=== PATIENT | female | born 1965 | race Caucasian/White ===

== ENCOUNTER 2019-12-22 13:41 | Emergency (ER) | payer BC, SELFPAY ==
[2019-12-22 13:51] VITALS: BP 249/123; PULSE 119; RESP 18; TEMP 36.2; O2SAT 97; BMI 39.1
--- NOTE | 2019-12-22 14:09 | CT_ITS ---
WS: [id number] CT HEAD NONCONTRAST HISTORY: Hypertension. TECHNIQUE: Contiguous axial imaging performed through the brain in 2.5 mm imaging. Bone and soft tiss ue windows. Sagittal and coronal reformats reviewed. All CT scans at [facility] use at ast one of these dose optimization techniques: automated exposure control; mA and/or kV adjustment pe r patient size (includes targeted exams where dose is matched to clinical indication); or iterative r econstruction. DLP: 824.54 mGy.cm COMPARISON: None available. No acute intracranial hemorrhage, midline shift or mass effect. No atrophy or prior infarcts or herniation. Ventricles: Normal size with no hydrocephalus. Paranasal sinuses: As visualized are clear. Mastoid air cells: Well pneumatized. Calvarium and scalp: Skull is intact with no soft tissue edema or swelling. CT/CT head wo con* [id number] IMPRESSION: Negative head CT.
--- NOTE | 2019-12-22 14:21 | ED_ITS ---
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 Associated symptoms: Deny chest pain, dyspnea or headache(s) Review of Systems General: Reports: 10 or more systems reviewed and unremarkable except in HPI and below Card: Denies: chest pain Resp: Denies: shortness of breath Neuro: Denies: headache, numbness in extremities, weakness in extremities or difficulty walking Psych: Reports: anxiety PFSH ED PFSH: Social History Smoking and tobacco status: never smoked Physical Exam Const: COMMON NORMALS: no apparent distress, oriented x3, no limitations and alert GENERAL APPEARANCE: cooperative and comfortable ORIENTATION/CONSCIOUSNESS: Yes awake, Yes oriented to person, Yes oriented to place and Yes oriented to time HENMT: COMMON NORMALS: normocephalic, head/scalp atraumatic, external ears normal, EAC's normal, TM's normal bilaterally and external nose normal HEAD & SCALP: normal to inspection, normocephalic and atraumatic FACE & SINUS: normal facial exam, sinuses nontender and face symmetric NOSE: external nose normal, nares normal and no nasal discharge EXTERNAL EAR: Yes external ears normal EXTERNAL AUDITORY CANAL: EAC's normal TYMPANIC MEMBRANE: TM's normal bilaterally MOUTH: oral and palatal mucosa normal, lip normal and tongue normal THROAT: posterior oropharynx normal, tonsils normal and uvula midline Eye: COMMON NORMALS: PERRL, EOMs intact bilaterally and conjunctivae normal GENERAL EYE: normal appearance of both eyes and normal light reflex EYELID: eyelids normal CONJUNCTIVA: Yes conjunctivae normal PUPIL: Yes PERRL E OM: Yes EOM abnormal DIRECT OPHTHALMOSCOPY: Yes normal light reflex Neck/C-Spine: COMMON NORMALS: full ROM, no lymphadenopathy, supple, no meningeal signs, no JVD and thyroid normal GENERAL: Yes normal visual inspection THYROID: thyroid normal CERVICAL SPINE: Yes cervical ROM normal and Yes normal cervical lordosis Lymph: LYMPHATIC: no lymphadenopathy noted Chest: COMMONS NORMALS: inspection of chest normal and palpation of chest normal Resp: COMMON NORMALS: normal respiratory effort, no retractions and clear to auscultation bilaterally AUSCULTATION: clear to auscultation bilaterally Cardio: COMMON NORMALS: no JVD, regular rate, regular rhythm, S1 normal heart sound, S2 normal heart sound, no gallops, no clicks, no murmurs, no rub and peripheral pulses 2+ throughout RATE: regular rate RHYTHM: regular rhythm HEART SOUNDS: S1 normal and S2 normal PERIPHERAL PULSES: pulses 2+ throughout GI: COMMON NORMALS: normal to inspection, nondistended, normoactive bowel sounds, soft to palpation, non-tender and no masses PALPATION: Yes soft : COMMON NORMALS: Yes no CVA tenderness and Yes external appearance normal BLADDER/KIDNEY EXAM: Yes no CVA tenderness Back/Pelvis: COMMON NORMALS: no CVA tenderness, thoracic and lumbar spine normal to inspection, no thoracic nor lumbar tenderness and thoraco-lumbar ROM normal Extremity: COMMON NORMALS: normal to inspection, full ROM, normal capillary refill, no joint enlargement, no clubbing, cyanosis or edema, no calf tenderness and no pedal edema GENERAL: Yes normal exam except as noted Neuro: COMMON NORMALS: oriented x3, moves all extremities, no focal motor deficits, no sensory deficits noted and gait normal SENSORIUM/ORIENTATION: Yes alert, Yes oriented to person, Yes oriented to place and Yes oriented to time MENINGEAL SIGNS: Yes no meningeal signs Psych: COMMON NORMALS: mental status grossly normal, thought process normal, cooperative, affect normal, speech normal and activity/motor behavior normal SPEECH: Yes normal speech THOUGHT PROCESS: normal thought process Skin: COMMON NORMALS: no rashes or lesions noted, no wounds and skin turgor normal GENERAL SKIN EXAM: no rashes or lesions noted and turgor normal Course ED course: Pt BP elevated; no neurological deficits noted upon examination however pt has not had a thorough work up as a patient in a doctor's office ever and does not take any medications. She does have an appt set up to follow up with her PCP later this week. We will acutely control her BP before releasing her but also rule out infection and do some basic labs. Reevaluation(s): Reevaluation #1: Pt remains to assymptomatic but BP is still elevated. We will proceed with DC. Time: 16:52 Vital Signs: Vital signs: Vital Signs Temperature 97.1 F L 04/28/20 13:51 Pulse Rate 97 12/22/19 16:00 Respiratory Rate 16 12/22/19 16:00 Blood Pressure 170/105 12/22/19 16:00 Pulse Oximetry 98 12/22/19 16:00 [facility] - General Adult Lab Data: Labs: Lab Results 12/22/19 12/22/19 12/22/19 Range/Units 14:22 14:22 14:25 WBC 10.4 H (4.0-10.0) 10^3/ uL RBC 5.04 (4.1-5.3) 10^6/u L Hgb 14.8 (11.5-15.3) g/dL Hct 45.9 (37.0-47.0) % MCV 91.1 (81-99) fL MCH 29.4 (28.0-34.0) pg MCHC 32.2 (30.0-36.0) g/dL RDW 12.4 (12.1-15.1) % Plt Count 250 (130-400) 10^3/c mm MPV 12.6 H (7.4-10.4) fL Neut % (Auto) 70.3 % Lymph % (Auto) 20.1 % [place] % (Auto) 7.0 % Eos % (Auto) 1.5 % Baso % (Auto) 0.7 % Neut # (Auto) 7.3 (1.8-7.7) 10^3/u L Lymph # (Auto) 2.1 (0.8-4.8) 10^3/u L [place] # (Auto) 0.7 (0.2-0.9) 10^3/u L Eos # (Auto) 0.2 (0.0-0.8) 10^3/u L Baso # (Auto) 0.1 (0.0-0.1) 10^3/u L Nucleated RBC % (a uto) 0 % Nucleated RBCs # 0.0 /100WBC Sodium 139 (136-145) mmol/L Potassium 3.4 L (3.5-5.1) mmol/L Chloride 101 (98-107) mmol/L Carbon Dioxide 26 (22-29) mmol/L Anion Gap 15.4 (5-19) BUN 13 (6-20) mg/dL Creatinine 1.0 H (0.5-0.9) mg/dL GFR Calculation 57.4 L (90-130) mL/min Glucose 170 H (65-115) mg/dL Calculated Osmolal ity 288 (285-295) mOsm/k g Calcium 9.9 (8.5-10.5) mg/dL Total Bilirubin 0.5 (0.15-1.2) mg/dL AST 26 (0-32) U/L ALT 25 (0-33) U/L Alkaline Phosphata se 83 (35-105) IU/L Total Protein 7.9 (6.6-8.7) g/dL Albumin 4.3 (3.5-5.2) g/dL Globulin 3.6 (1.3-4.6) g/dL Urine Color Yellow (Yellow) Urine Appearance Sl hazy (CLEAR) Urine pH 5 (5-7) Ur Specific Gravit y 1.025 (1.005-1.030) Urine Protein 1+ H (Negative) Urine Glucose (UA) Norm (Normal) Urine Ketones 1+ H (Negative) Urine Blood Neg (Negative) Urine Nitrate Negative (Negative) Urine Bilirubin 1+ H (NEGATIVE) Urine Urobilinogen 4 H (Negative) mg/dL Ur Leukocyte Merna ase Trace H (Negative) Urine RBC None (0-2) /hpf Urine WBC 5-10 H (0-5) /hpf Ur Squamous Epith Cells 55-80 H (0-5) Calcium Oxalate Cr ystal 5-10 H /hpf Urine Bacteria 1+ H (NONE) Imaging Data^: CT Head: Radiologist's impression: [place] [address] CT Scan Report Signed Patient: Rekha Humphrey Unit #: [id number] : 1965 Age/Sex: 54 / F ADM Date: 12/22/19 Loc: ER Room/Bed: Attending Dr: Ordering Provider/Ordering MD: Radha Armijo NP Date of Service: 12/22/19 Procedure(s): CT head wo con* [id number] Accession Number(s): [id number] Report Number: [id number] WS: [id number] CT HEAD NONCONTRAST HISTORY: Hypertension. TECHNIQUE: Contiguous axial imaging performed through the brain in 2.5 mm imaging. Bone and soft tissue windows. Sagittal and coronal reformats reviewed. All CT scans at [facility] use at least one of these dose optimization techniques: automated exposure control; mA and/or kV adjustment per patient size (includes targeted exams where dose is matched to clinical indication); or iterative reconstruction. DLP: 824.54 mGy.cm COMPARISON: None available. No acute intracranial hemorrhage, midline shift or mass effect. No atrophy or prior infarcts or herniation. Ventricles: Normal size with no hydrocephalus. Paranasal sinuses: As visualized are clear. Mastoid air cells: Well pneumatized. Calvarium and scalp: Skull is intact with no soft tissue edema or swelling. CT/CT head wo con* [id number] IMPRESSION: Negative head CT. Dictated By: Nasrin Villavicencio DO Signed By: Nasrin Villavicencio DO Signed Date/Time: 12/22/19 1530 DD/ 1528 Discharge Plan Discharge Patient Disposition: Home, Self-Care Clinical Impression: Hypertension Condition: Stable Prescriptions: New lisinopril 10 mg tablet 10 mg PO DAILY Qty: 30 RF: 0 amlodipine 5 mg tablet 5 mg PO DAILY Qty: 20 RF: 0 Referrals: Lawrence Corbett MD [Family Provider] - Mara Sam FNP [Primary Care Provider] - Discharge Diet: Low Salt Discharge Activity: Resume usual activity Activity Restrictions/Additional Instructions: Please proceed with follow up with PCP as scheduled. Coding Level of Care Code ED Intranet Specialist for Chg Fwd Exam Comprehensive
[2019-12-22 14:24] VITALS: RESP 17; O2SAT 97
[2019-12-22 14:29] LABS: Basophils # 0.1 10^3/uL (0.0-0.1); Basophils % 0.7 %; Eosinophils # 0.2 10^3/uL (0.0-0.8); Eosinophils % 1.5 %; Hematocrit 45.9 % (37.0-47.0); Hemoglobin 14.8 g/dL (11.5-15.3); Lymphocytes # 2.1 10^3/uL (0.8-4.8); Lymphocytes % 20.1 %; Mean Corpuscular HGB Conc 32.2 g/dL (30.0-36.0); Mean Corpuscular Hemoglobin 29.4 pg (28.0-34.0); Mean Corpuscular Volume 91.1 fL (81-99); Mean Platelet Volume 12.6 fL (7.4-10.4); Monocytes # 0.7 10^3/uL (0.2-0.9); Neutrophils # 7.3 10^3/uL (1.8-7.7); Neutrophils % 70.3 %; Nucleated Red Blood Cells % 0 %; Platelet Count 250 10^3/cmm (130-400); Red Blood Count 5.04 10^6/uL (4.1-5.3); Red Cell Distribution Width 12.4 % (12.1-15.1); White Blood Count 10.4 10^3/uL (4.0-10.0)
[2019-12-22] MEDS: ALPRAZolam 0.5 mg Tablet PO (14:34)
[2019-12-22] MEDS: hyDRALAzine 20 mg/mL INJ 1 mL 10 MG IVP ×2 (14:35→15:50)
[2019-12-22] MEDS: amlodipine 5 mg Tablet 2.5 MG PO (14:46)
[2019-12-22 15:09] VITALS: BP 190/136; PULSE 99; RESP 16; O2SAT 99
[2019-12-22 15:20] LABS: Alanine Aminotransferase 25 U/L (0-33); Albumin Level 4.3 g/dL (3.5-5.2); Alkaline Phosphatase 83 IU/L (35-105); Anion Gap 15.4 (5-19); Aspartate Amino Transferase 26 U/L (0-32); Blood Urea Nitrogen 13 mg/dL (6-20); Calcium 9.9 mg/dL (8.5-10.5); Carbon Dioxide 26 mmol/L (22-29); Chloride 101 mmol/L (98-107); Globulin 3.6 g/dL (1.3-4.6); Glomerular Filtration Rate 57.4 mL/min (90-130); Glucose 170 mg/dL (65-115); Osmolality Calculated 288 mOsm/kg (285-295); Potassium 3.4 mmol/L (3.5-5.1); Sodium 139 mmol/L (136-145); Total Bilirubin 0.5 mg/dL (0.15-1.2); Total Protein 7.9 g/dL (6.6-8.7)
[2019-12-22 15:21] LABS: Urine Appearance SL Hazy (CLEAR); Urine Color Yellow (Yellow); pH Urine 5 (5-7)
[2019-12-22 15:22] LABS: Add Urine Microscopic? YES; Bilirubin Urine 1+ (NEGATIVE); Blood Urine Neg (Negative); Glucose Urine UA Norm (Normal); Ketones Urine 1+ (Negative); Leukocyte Esterase Urine Trace (Negative); Nitrate Urine Negative (Negative); Protein Urine 1+ (Negative); Specific Gravity, Urine 1.025 (1.005-1.030); Urobilinogen Urine 4 mg/dL (Negative)
[2019-12-22 15:23] LABS: Add Urine Culture? Yes; Bacteria Urine 1+; Squamous Epithelial Cell Urine 55-80 (0-5)
[2019-12-22] MEDS: sodium chloride 0.9% 500 ML IV (15:49)
[2019-12-22 16:00] VITALS: BP 170/105; PULSE 97; RESP 16; O2SAT 98
[2019-12-22] MEDS: metoprolol tartrate 1 mg/1 mL SDV 5 mL 5 MG IV (16:24)
[2019-12-22 17:11] VITALS: BP 203/135; PULSE 95; RESP 17; O2SAT 98
== END 2019-12-22 17:10 | disposition home or self-care (01) ==
PROVIDERS: Emergency Provider Nurse Practitioner Family; PCP Nurse Practitioner Family
DX: I10 Essential (primary) hypertension (principal)
CPT/HCPCS: 12345; 36415; 70450; 80053; 81001; 85025; 87086; 96360; 96374; 96375; 99283; J0360; J3490; J7040

== ENCOUNTER 2020-05-27 15:45 | Inpatient (IN) | payer BC, SELFPAY ==
[2020-05-27 16:04] VITALS: BP 169/110; PULSE 124; RESP 20; TEMP 37.8; O2SAT 97; BMI 34.4
--- NOTE | 2020-05-27 16:09 | XR_ITS ---
WS: [id number] Portable AP upright chest, 05/27/2020 Clinical Data: sob Comparison: PA and lateral chest, 05/22/2007. Findings: There is a large left pleural effusion. There may be elevation of the left diaphragm and al so consolidation and atelectasis associated with this left pleural effusion. There is a minimal patch y opacity in the right lower lobe but the superior portion of the right lung is clear. The heart size may be enlarged. The aortic arch is tortuous. XR/XR chest 1V portable [id number] Impression: 1. Large left pleural effusion with possible pneumonia and atelectasis. 2. Possible right lower lobe atelectasis and/or minimal pneumonia. 3. Recommend repeat chest x-ray in one to 2 days.
--- NOTE | 2020-05-27 16:19 | CTR_ITS ---
PROCEDURE INFORMATION: Exam: CT Angiography Chest With Contrast Exam date and time: 05/27/2020 5:25 PM Age: 54 years old Clinical indication: Shortness of breath; Patient HX: C/O SOB x 3 days - abn cxr TECHNIQUE: Imaging protocol: Computed tomographic angiography of the chest with intravenous contrast. 3D rendering (Not supervised by radiologist): MIP and/or 3D reconstructed images were created by the technologist. Radiation optimization: All CT scans at this facility use at least one of these dose optimization techniques: automated exposure control; mA and/or kV adjustment per patient size (includes targeted exams where dose is matched to clinical indication); or iterative reconstruction. Contrast material: OMNI 350; Contrast volume: 95 ml; Contrast route: INTRAVENOUS (IV); COMPARISON: CR XR chest 1V portable [id number] 05/27/2020 4:11 PM RADIATION DOSE METRICS: Total DLP (mGy-cm): 560.39 FINDINGS: Pulmonary arteries: No visible pulmonary embolism/pulmonary arterial thrombus. Aorta: The thoracic aorta is nonaneurysmal. No visible intimal flap or dissection. Lungs: Complete collapse of the left lower lobe. Atelectasis in the inferior segment lingula. No grossly visible endobronchial lesion as etiology for the lobar and segmental atelectasis. Pleural space: Moderate volume multiloculated left pleural effusion. Heart: Unremarkable. No cardiomegaly. No pericardial effusion. Lymph nodes: No visible active mediastinal or hilar lymphadenopathy. Rare calcified complex of antecedent granulomatous disease. Bones/joints: Unremarkable. No acute fracture. Soft tissues: Unremarkable. Other findings: Quantum mottle artifact degrades diagnostic quality in image detail. Evidence of antecedent granulomatous disease. CT/CT angio chest PE protcl [id number] IMPRESSION: 1. No visible pulmonary embolism/pulmonary arterial thrombus. 2. Moderate volume multiloculated left pleural effusion. 3. Complete collapse of the left lower lobe. 4. Inferior segment lingula atelectasis. Radiation Dose CTDIVOL = (mGy): DLP = 560.39 (mGy-cm)
--- NOTE | 2020-05-27 16:32 | ED_ITS ---
HPI - SOB/Dyspnea General: Chief Complaint: Shortness of Breath/Dyspnea Stated Complaint: sob/sent by tennille [facility]a Time Seen by Provider: 05/27/20 16:12 Source: patient Mode of arrival: ambulatory Limitations: no limitations History of Present Illness: HPI Narrative: 54-year-old female who states she had a cough along with shortness of breath and fever over the last [address] [facility] her dyspnea is worse today and she is seen [facility] and x-ray showed a large left-sided pneumonia and they sent her here. She denies any chest pain. No history of pneumonias in the past. She denies any vomiting or diarrhea. States her dyspnea is worse with exertion. Associated symptoms: Reports fever(s); Deny abdominal pain, chest pain, nausea or vomiting Review of Systems Const: Reports: fever(s); Denies: chills, body aches or change in appetite Eyes: Denies: blurry vision or eye discomfort ENMT: Denies: throat pain or dental pain Card: Denies: chest pain Resp: Reports: dyspnea and productive cough GI: Denies: abdominal pain, nausea, vomiting or diarrhea : Denies: dysuria Musc: Denies: neck pain or back pain Skin/Breast: Denies: rash Neuro: Denies: headache(s) Psych: Denies: depression Stevie/Lymph: Denies: easy bruising All/Imm: Denies: urticaria PFSH ED PFSH: Social History Smoking and tobacco status: never smoked Physical Exam Const: COMMON NORMALS: no acute distress, patient oriented x3 and healthy appearing HENMT: COMMON NORMALS: normocephalic and atraumatic HEAD & SCALP: normocephalic and atraumatic Eye: COMMON NORMALS: Equal, round and reactive pupils present and EOMs intact bilaterally PUPIL: Yes Equal, round and reactive pupils present Neck/C-Spine: COMMON NORMALS: full ROM and supple Chest: COMMONS NORMALS: normal inspection of the chest and normal palpation of entire chest wall Resp: COMMON NORMALS: normal respiratory effort, No retractions and No use of accessory muscles AUSCULTATION: breath sounds absent on th left Cardio: COMMON NORMALS: regular rate, regular rhythm and No murmurs present (Cardio) RATE: regular rate RHYTHM: regular rhythm GI: COMMON NORMALS: Normal to inspection, nondistended, normoactive bowel sounds present, Soft to palpation, non-tender and no masses PALPATION: Yes Soft to palpation Extremity: COMMON NORMALS: normal to inspection and full ROM Neuro: COMMON NORMALS: patient oriented x3, moves all extremities and no focal motor deficits Psych: COMMON NORMALS: mental status grossly normal, Normal thought process present and cooperative THOUGHT PROCESS: Normal thought process present Skin: COMMON NORMALS: no rashes or lesions noted and no wounds GENERAL SKIN EXAM: no rashes or lesions noted Course Vital Signs: Vital signs: Vital Signs Temperature 100.0 F H 05/27/20 16:04 Pulse Rate 124 H 05/27/20 16:04 Respiratory Rate 20 H 05/27/20 16:04 Blood Pressure 169/110 05/27/20 16:04 Pulse Oximetry 97 05/27/20 16:04 MDM - SOB/Dyspnea MDM Narrative: Medical decision making narrative: Patient presents here with shortness of breath and found to have a large pleural effusion and pneumonia on the left side. I spoke to Dr. Finney who is admitting. I also spoke to Dr. Nisha Blum of pulmonology who is consulted. Patient has been stable here patient patient had a negative COVID at home. Lab Data: Labs: Lab Results 05/27/20 05/27/20 05/27/20 Range/Units 16:55 16:55 16:55 WBC 26.9 H (4.0-10.0) 10^3/ uL RBC 4.26 (4.1-5.3) 10^6/u L Hgb 12.7 (11.5-15.3) g/dL Hct 39.4 (37.0-47.0) % MCV 92.5 (81-99) fL MCH 29.8 (28.0-34.0) pg MCHC 32.2 (30.0-36.0) g/dL RDW 13.2 (12.1-15.1) % Plt Count 281 (130-400) 10^3/c mm MPV 12.3 H (7.4-10.4) fL Neut % (Auto) 84.2 % Lymph % (Auto) 5.2 % [place] % (Auto) 6.5 % Eos % (Auto) 0.2 % Baso % (Auto) 0.7 % Neut # (Auto) 22.64 H (1.8-7.7) 10^3/u L Lymph # (Auto) 1.4 (0.8-4.8) 10^3/u L [place] # (Auto) 1.8 H (0.2-0.9) 10^3/u L Eos # (Auto) 0.1 (0.0-0.8) 10^3/u L Baso # (Auto) 0.2 H (0.0-0.1) 10^3/u L Nucleated RBC % (a uto) 0 % Nucleated RBCs # 0.0 /100WBC Sodium 131 L (136-145) mmol/L Potassium 3.5 (3.5-5.1) mmol/L Chloride 94 L (98-107) mmol/L Carbon Dioxide 23 (22-29) mmol/L Anion Gap 17.5 (5-19) BUN 14 (6-20) mg/dL Creatinine 1.0 H (0.5-0.9) mg/dL GFR Calculation 57.4 L (90-130) mL/min Glucose 180 H (65-115) mg/dL Calculated Osmolal ity 277 L (285-295) mOsm/k g Lactic Acid 1.8 (0.5-2.2) mmol/L Calcium 9.1 (8.5-10.5) mg/dL Total Bilirubin 1.1 (0.15-1.2) mg/dL AST 21 (0-32) U/L ALT 14 (0-33) U/L Alkaline Phosphata se 129 H (35-105) IU/L NT-Pro-B Natriuret Pep 391 H (0-125) pg/mL Total Protein 7.4 (6.6-8.7) g/dL Albumin 3.3 L (3.5-5.2) g/dL Globulin 4.1 (1.3-4.6) g/dL Imaging Data^: CXR: Attestation: I personally reviewed and interpreted this imaging study as follows: My impression: large left sided pneumonia CT Chest: Radiologist's impression: [address] [address] [address] Scan Report Signed Patient: Bonifacio Humphreydaniel Valderrama Unit #: [id number] : 1965 Acct#:[id number] Age/Sex: 54 / F ADM Date: 05/27/20 Loc: ER Room/Bed: Attending Dr: Ordering Provider/Ordering MD: Carmen Rivers MD Date of Service: 05/27/20 Procedure(s): CT angio chest PE protcl [id number] Accession Number(s): [id number] Report Number: [id number] PROCEDURE INFORMATION: Exam: CT Angiography Chest With Contrast Exam date and time: 05/27/2020 5:25 PM Age: 54 years old Clinical indication: Shortness of breath; Patient HX: C/O SOB x 3 days - abn cxr TECHNIQUE: Imaging protocol: Computed tomographic angiography of the chest with intravenous contrast. 3D rendering (Not supervised by radiologist): MIP and/or 3D reconstructed images were created by the technologist. Radiation optimization: All CT scans at this facility use at least one of these dose optimization techniques: automated exposure control; mA and/or kV adjustment per patient size (includes targeted exams where dose is matched to clinical indication); or iterative reconstruction. Contrast material: OMNI 350; Contrast volume: 95 ml; Contrast route: INTRAVENOUS (IV); COMPARISON: CR XR chest 1V portable [id number] 05/27/2020 4:11 PM RADIATION DOSE METRICS: Total DLP (mGy-cm): 560.39 FINDINGS: Pulmonary arteries: No visible pulmonary embolism/pulmonary arterial thrombus. Aorta: The thoracic aorta is nonaneurysmal. No visible intimal flap or dissection. Lungs: Complete collapse of the left lower lobe. Atelectasis in the inferior segment lingula. No grossly visible endobronchial lesion as etiology for the lobar and segmental atelectasis. Pleural space: Moderate volume multiloculated left pleural effusion. Heart: Unremarkable. No cardiomegaly. No pericardial effusion. Lymph nodes: No visible active mediastinal or hilar lymphadenopathy. Rare calcified complex of antecedent granulomatous disease. Bones/joints: Unremarkable. No acute fracture. Soft tissues: Unremarkable. Other findings: Quantum mottle artifact degrades diagnostic quality in image detail. Evidence of antecedent granulomatous disease. CT/CT angio chest PE protcl [id number] IMPRESSION: 1. No visible pulmonary embolism/pulmonary arterial thrombus. 2. Moderate volume multiloculated left pleural effusion. 3. Complete collapse of the left lower lobe. 4. Inferior segment lingula atelectasis. Discharge Plan Discharge Patient Disposition: Admitted As Inpatient Clinical Impression: Pleural effusion Community acquired pneumonia Qualifiers: Laterality: left Lung location: lower lobe of lung Qualified Code(s): J18.9 - Pneumonia, unspecified organism Condition: Stable Referrals: Mara Sam FNP [Primary Care Provider] - Coding Level of Care Code ED Social Work Job Titles for Chg Fwd Exam Comprehensive
[2020-05-27 17:07] LABS: Basophils # 0.2 10^3/uL (0.0-0.1); Basophils % 0.7 %; Eosinophils # 0.1 10^3/uL (0.0-0.8); Eosinophils % 0.2 %; Hematocrit 39.4 % (37.0-47.0); Hemoglobin 12.7 g/dL (11.5-15.3); Lymphocytes # 1.4 10^3/uL (0.8-4.8); Lymphocytes % 5.2 %; Mean Corpuscular HGB Conc 32.2 g/dL (30.0-36.0); Mean Corpuscular Hemoglobin 29.8 pg (28.0-34.0); Mean Corpuscular Volume 92.5 fL (81-99); Mean Platelet Volume 12.3 fL (7.4-10.4); Monocytes # 1.8 10^3/uL (0.2-0.9); Monocytes % 6.5 %; Neutrophils # 22.64 10^3/uL (1.8-7.7); Neutrophils % 84.2 %; Nucleated Red Blood Cells % 0 %; Platelet Count 281 10^3/cmm (130-400); Red Blood Count 4.26 10^6/uL (4.1-5.3); Red Cell Distribution Width 13.2 % (12.1-15.1); White Blood Count 26.9 10^3/uL (4.0-10.0)
[2020-05-27] MEDS: acetaminophen 500 mg Tablet 1000 MG PO (17:08)
[2020-05-27] MEDS: cefTRIAXone 1,000 MG in sodium chloride 0.9% (plus) 50 ML 100 MG IV (17:09)
[2020-05-27] MEDS: sodium chloride 0.9% 1,000 ML 999 ML IV (17:09)
[2020-05-27 17:24] LABS: Lactic Sepsis W/Reflex 1.8 mmol/L (0.5-2.2)
[2020-05-27] MEDS: iohexol 350 mg/mL 100 mL Btl IV (17:34)
[2020-05-27 17:35] LABS: Alanine Aminotransferase 14 U/L (0-33); Albumin Level 3.3 g/dL (3.5-5.2); Alkaline Phosphatase 129 IU/L (35-105); Anion Gap 17.5 (5-19); Aspartate Amino Transferase 21 U/L (0-32); Blood Urea Nitrogen 14 mg/dL (6-20); Calcium 9.1 mg/dL (8.5-10.5); Carbon Dioxide 23 mmol/L (22-29); Chloride 94 mmol/L (98-107); Globulin 4.1 g/dL (1.3-4.6); Glomerular Filtration Rate 57.4 mL/min (90-130); Glucose 180 mg/dL (65-115); NT Pro B Type Natriuretic Pept 391 pg/mL (0-125); Osmolality Calculated 277 mOsm/kg (285-295); Potassium 3.5 mmol/L (3.5-5.1); Sodium 131 mmol/L (136-145); Total Bilirubin 1.1 mg/dL (0.15-1.2); Total Protein 7.4 g/dL (6.6-8.7)
[2020-05-27] MEDS: azithromycin 500 MG in sodium chloride 0.9% 250 ML 250 MG IV (18:01)
--- NOTE | 2020-05-27 18:42 | PM.HP ---
Providers/Chief Complaint Primary Care Provider: AMANDA Luo Chief Complaint: sob/sent by [facility] History of Present Illness Delorise Lavelle Humphrey is a 54 year old female that presents to the emergency department with cough, shortness of breath, difficulty laying flat, low-grade fevers for the last 6 to 7 days. Had a negative COVID at [facility] today, and an x-ray which demonstrated a large pneumonia or pleural effusion. She was referred to the emergency department. She has had no vomiting, or diarrhea. She has been hoarse as well. She denies any ill contacts. No recent travel. No history of TB or positive TB skin test. Some left-sided chest discomfort. Mainly laterally. Cough is productive of dark sputum. Review of Systems General: Reports: 10 or more systems reviewed and unremarkable except in HPI and below Const: Reports: fever(s) and malaise Eyes: Denies: change in vision ENMT: Denies: throat pain Card: Reports: chest pain Resp: Reports: dyspnea and productive cough GI: Denies: abdominal pain : Denies: flank pain Musc: Denies: neck pain Skin/Breast: Denies: rash Neuro: Denies: headache(s) Psych: Denies: anxiety Endo: Denies: polyuria Stevie/Lymph: Denies: easy bruising All/Imm: Denies: urticaria Medications/Allergies Home Medications Medication Instructions Recorded Confirmed Last Taken Type Vitamin C 1 tab PO DAILY 05/27/20 05/27/20 05/26/20 History acetaminophen [Tylenol] 650 mg PO PRN 05/27/20 05/27/20 05/27/20 History alprazolam 0.25 mg PO BID PRN 05/27/20 05/27/20 05/26/20 History amlodipine 10 mg PO DAILY 05/27/20 05/27/20 05/26/20 History escitalopram oxalate 10 mg PO DAILY 05/27/20 05/27/20 05/26/20 History lisinopril 20 mg PO DAILY 05/27/20 05/27/20 05/26/20 History multivitamin [Multiple Vitamins] 1 tab PO DAILY 05/27/20 05/27/20 05/26/20 History Allergies Allergy/AdvReac Type Severity Reaction Status Date / Time No Known Allergies Allergy Verified 05/27/20 16:29 PFSH Acute PFSH: Medical History (Updated 05/27/20 @ 19:13 by Curtis Finney MD) Anxiety Hypertension Surgical History (Updated 05/27/20 @ 18:51 by Curtis Finney MD) History of Family History (Updated 05/27/20 @ 18:51 by Curtis Finney MD) Other CAD (coronary artery disease) Social History (Updated 05/27/20 @ 19:02 by Curtis Finney MD) Smoking and tobacco status: never smoked Alcohol intake: never Substance/Drug Use: never Vitals/I&O/Wt Last Vital Signs Temp 100.0 F H 05/27/20 16:04 Pulse 124 H 05/27/20 16:04 Resp 20 H 05/27/20 16:04 BP 169/110 05/27/20 16:04 Pulse Ox 97 05/27/20 16:04 Weight last 48 hrs Weight 99.79 kg Physical Exam Narrative: EXAM NARRATIVE: General exam is a white female, no apparent distress HEENT: Pupils equally round. Oropharynx clear. Neck is supple no lymphadenopathy or thyromegaly Cardiovascular slight tachycardia, around 100, no murmur Lungs diminished breath sounds left lung, right clear Abdomen is soft with positive bowel sounds. No obvious organomegaly was deferred Extremities no cyanosis clubbing or edema. Cap refill brisk Skin no rash Neuro no focal deficits Data : 05/27/20 16:55 05/27/20 16:55 Micro: Microbiology 05/27/20 17:00 Blood Culture - Preliminary Blood SPECIMEN COLLECTED 05/27/20 16:55 Blood Culture - Preliminary Blood SPECIMEN COLLECTED Other data: BNP slightly elevated at 391. Alkaline phosphatase 129, rest of LFTs normal. Chest x-ray demonstrated large left pleural effusion and pneumonia CT chest demonstrated loculated the left pleural effusion, collapse of left lower lobe, no pulmonary embolism A&P Assessment and plan (1) Community acquired pneumonia: She is received Rocephin and azithromycin in the emergency department Secondary to loculations potential for empyema exists. Continue Rocephin, and add vancomycin Sputum culture Oxygen if needed. Currently she is saturating well on room air without any significant respiratory compromise MRSA PCR Secondary to septations, need for thoracentesis we will consult pulmonary. I discussed the patient with them and thoracentesis is planned tomorrow morning Hold any anticoagulation for planned procedure Status: Acute Qualifiers: Laterality: left Lung location: lower lobe of lung Qualified Code(s): J18.9 - Pneumonia, unspecified organism (2) Pleural effusion: Thoracentesis planned for tomorrow Status: Acute (3) Leukocytosis: Secondary to pneumonia Status: Acute (4) Hyperglycemia: Check hemoglobin A1c. If elevated consider change to diabetic diet, sliding scale insulin Status: Acute (5) Hyponatremia: Likely secondary to pulmonary process. Check TSH Status: Acute Additional A&P Information Hypertension, continue home medications Anxiety continue home medications SCDs for DVT prophylaxis, planning for thoracentesis tomorrow by pulmonary Full code Attestations Medical Necessity Statement*: Will need greater than 2 midnight stay for evaluation and treatment of pneumonia Time Spent in Patient Care: Greater than 35 minutes Coding Level of Care Code Acute Pig Farmer for Amador Fwbruno Diagnoses Community acquired pneumonia J18.9 Laterality: left Lung location: lower lobe of lung Pleural effusion J90 Leukocytosis D72.829 Hyperglycemia R73.9 Hyponatremia E87.1
[2020-05-27 19:09] VITALS: BP 134/87; PULSE 97; RESP 18; O2SAT 92
[2020-05-27 19:48] LABS: Estmated Average Glucose 120; Hemoglobin A1C 5.8 % (4.0-6.0)
--- NOTE | 2020-05-27 20:23 | PC.NURSE ---
pt report called to Vanessa RODRIGUEZ in SBAR format.
[2020-05-27 21:00] VITALS: BP 168/88; PULSE 125; RESP 24; TEMP 36.7; O2SAT 93
[2020-05-27 21:12] VITALS: BP 168/88; PULSE 125; RESP 24; TEMP 36.7; O2SAT 93
--- NOTE | 2020-05-27 21:25 | PC.PHAR ---
Vancomycin is dosed at 1000mg IVPB every 12 hours to produce a predicted trough level of 17.73 (population based pharmacokinetic analysis). A trough level has been ordered from the lab to be obtained before the fourth dose to confirm and adjust if needed.
[2020-05-27 21:57] LABS: Thyroid Stimulating Hormone 0.53 uIU/mL (0.27-4.20)
[2020-05-27] MEDS: vancomycin 1,000 MG in sodium chloride 0.9% 250 ML 250 MG IV (22:12)
[2020-05-28] VITALS (9 sets, daily range): BP systolic 114–174; BP diastolic 79–102; PULSE 108–130; RESP 17–28; TEMP 37.1–38.8; O2SAT 91–95
--- NOTE | 2020-05-28 00:41 | PC.NURSE ---
Patient's heart rate is 125bpm. Patient stated heart rate never been high until only when I got sick. Oxygen saturation level is 91% on 2L of oxygen by nasal cannula. Patient's telegraph lineman nurse Vanessa is notified.
[2020-05-28] MEDS: acetaminophen 325 mg Tablet 650 MG PO (02:29)
[2020-05-28] MEDS: amlodipine 5 mg Tablet PO (03:01)
[2020-05-28] MEDS: ALPRAZolam 0.25 mg Tablet PO (03:01)
[2020-05-28] MEDS: cefTRIAXone 1,000 MG in sodium chloride 0.9% (plus) 50 ML 100 MG IV ×2 (05:14→17:08)
[2020-05-28 05:17] LABS: Basophils # 0.1 10^3/uL (0.0-0.1); Basophils % 0.2 %; Hematocrit 39.1 % (37.0-47.0); Lymphocytes # 1.3 10^3/uL (0.8-4.8); Lymphocytes % 4.9 %; Mean Corpuscular HGB Conc 30.7 g/dL (30.0-36.0); Mean Corpuscular Hemoglobin 30.1 pg (28.0-34.0); Mean Platelet Volume 12.9 fL (7.4-10.4); Monocytes # 2.4 10^3/uL (0.2-0.9); Monocytes % 9.2 %; Neutrophils # 20.29 10^3/uL (1.8-7.7); Neutrophils % 78.5 %; Nucleated Red Blood Cells % 0 %; Platelet Count 192 10^3/cmm (130-400); Red Blood Count 3.99 10^6/uL (4.1-5.3); Red Cell Distribution Width 13.4 % (12.1-15.1); White Blood Count 25.9 10^3/uL (4.0-10.0)
[2020-05-28 05:46] LABS: Blood Urea Nitrogen 12 mg/dL (6-20); Calcium 8.5 mg/dL (8.5-10.5); Carbon Dioxide 23 mmol/L (22-29); Chloride 98 mmol/L (98-107); Glomerular Filtration Rate 86.6 mL/min (90-130); Glucose 149 mg/dL (65-115); Osmolality Calculated 279 mOsm/kg (285-295); Sodium 133 mmol/L (136-145)
[2020-05-28 05:47] LABS: Anion Gap 15.9 (5-19); Potassium 3.9 mmol/L (3.5-5.1)
[2020-05-28 06:41] LABS: Slide Review Slide Review Perform
--- NOTE | 2020-05-28 07:00 | XRR_ITS ---
PROCEDURE INFORMATION: Exam: XR Chest, 1 View Exam date and time: 05/28/2020 5:27 AM Age: 54 years old Clinical indication: Shortness of breath; Patient HX: F/u for left pleural effusion; Additional info: Follow up effusion TECHNIQUE: Imaging protocol: XR of the chest Views: 1 view. COMPARISON: CR XR chest 1V portable [id number] 05/27/2020 4:11 PM FINDINGS: Lungs: Unchanged compressive atelectasis of the left lung, sparing the apex. No consolidation on the right. Pleural space: No change large loculated left pleural effusion with associated atelectasis/consolidation. No visible pneumothorax. No effusion on the right. Heart/Mediastinum: Cardiac silhouette remains mildly enlarged. Unchanged mild rightward shift of the heart and mediastinum. Bones/joints: Unremarkable. XR/XR chest 1V portable [id number] IMPRESSION: No significant interval change. Large loculated left pleural effusion with atelectasis. No visible pneumothorax.
[2020-05-28] MEDS: amlodipine 10 mg Tablet PO (09:12)
[2020-05-28] MEDS: lisinopril 20 mg Tablet PO (09:12)
[2020-05-28] MEDS: vancomycin 1,000 MG in sodium chloride 0.9% 250 ML 250 MG IV ×2 (09:15→23:10)
--- NOTE | 2020-05-28 10:25 | XRR_ITS ---
PROCEDURE INFORMATION: Exam: XR Chest, 1 View Exam date and time: 05/28/2020 11:00 AM Age: 54 years old Clinical indication: Abnormal findings; Other: Post thoracentesis TECHNIQUE: Imaging protocol: XR of the chest Views: 1 view. COMPARISON: CR XR chest 1V portable [id number] 05/28/2020 5:25 AM FINDINGS: Lungs: Compressive atelectasis/consolidation of the left lung base, unchanged. The right lung is well aerated with no focal consolidation. Pleural space: Large loculated left pleural effusion appears unchanged. No visible pneumothorax. Heart/Mediastinum: Cardiac silhouette upper normal. The heart and mediastinal structures are again shifted slightly rightward. Bones/joints: Unremarkable. XR/XR chest 1V portable [id number] IMPRESSION: Large loculated left pleural effusion without significant change. No evidence of pneumothorax.
--- NOTE | 2020-05-28 10:27 | PM.OP ---
Operative Report Date of procedure: May 28, 2020 Pulmonary & Critical Care Medicine Procedure - Thoracentesis Procedure: Thoracentesis Indication: Left loculated Pleural effusion Usability Specialist(s): Drake Marmolejo MD Consent: Signed and placed in chart Anesthesia: 15 cc 1% lidocaine without epinephrine Description: Left pleural effusion was localized using ultrasound guidance and the site was marked accordingly. After chlorhexidine skin prep, area was draped in a sterile manner. 1% lidocaine was used for local anesthesia. 6 fr Thoracentesis catheter was then inserted into the pleural space with aspiration of 200 cc of pleural fluid. Appearance was straw-colored Ultrasound guidance used: Yes. EBL: 5 cc Complications: No PCXR: pending Associated Problem List Diagnoses (1) Pleural effusion:
[2020-05-28 10:28] LABS: ABG PH Result 7.29 (7.35-7.45); Blood Gas Operator Identificat MONRO; Blood Gas Sample Site Not specified; Blood Gas Sample Type Not specified
[2020-05-28] MEDS: lidocaine 1% INJ 20 mL 5 ML IV (10:31)
--- NOTE | 2020-05-28 10:37 | P.CONIM_ITS ---
Providers/Reason For Consult Consulting Physican/Specialty*: Dr. Juan Datar/ Pulmonology Reason for Consult*: Left loculated pleural effusion Attending Physician: Curtis Finney MD Primary Care Provider: AMANDA Luo History of Present Illness History of Present Illness Rekha Humphrey is a 54 year old female presented to ER yesterday with cough shortness of breath associated with orthopnea and low-grade fevers for last 1 week. Has negative COVID [facility] yesterday but x-ray demonstrated a large pneumonia pleural effusion on the left side she was referred to the emergency department and was admitted for management of community-acquired pneumonia with complicated pleural effusion. Pulmonary consulted for thoracentesis of left pleural effusion. Today at bedside patient reported difficulty breathing, currently saturating 95% on 3 L while laying on bed, and reported that other than low-grade fevers, cough and worsening shortness of breath for 1week he did need any other complaints. 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 Review of Systems General: Reports: 10 or more systems reviewed and unremarkable except in HPI and below Meds/Allergies Home Medications and Allergies Home Medications Medication Instructions Recorded Confirmed Last Taken Type Vitamin C 1 tab PO DAILY 05/27/20 05/27/20 05/26/20 History acetaminophen [Tylenol] 650 mg PO PRN 05/27/20 05/27/20 05/27/20 History alprazolam 0.25 mg PO BID PRN 05/27/20 05/27/20 05/26/20 History amlodipine 10 mg PO DAILY 05/27/20 05/27/20 05/26/20 History escitalopram oxalate 10 mg PO DAILY 05/27/20 05/27/20 05/26/20 History lisinopril 20 mg PO DAILY 05/27/20 05/27/20 05/26/20 History multivitamin [Multiple Vitamins] 1 tab PO DAILY 05/27/20 05/27/20 05/26/20 History Allergies Allergy/AdvReac Type Severity Reaction Status Date / Time No Known Allergies Allergy Verified 05/27/20 16:29 Current Medications Current Medications Generic Name Dose Route Start Last Admin Trade Name Freq PRN Reason Stop Dose Admin Acetaminophen 650 mg 05/27/20 21:12 10/03/20 02:29 Tylenol PO 650 mg Q6H PRN Administration Mild/Mod Pain Or Temp >/= 101 Amlodipine Besylate 10 mg 05/28/20 09:00 05/28/20 09:12 Norvasc PO 10 mg DAILY MENA Administration Escitalopram Oxalate 10 mg 05/28/20 09:00 05/28/20 09:12 Lexapro PO Not Given DAILY MENA Ceftriaxone Sodium 1,000 mg/ 50 mls @ 100 mls/hr 05/28/20 05:00 05/28/20 05:14 Sodium Chloride IV 100 mls/hr Q12H MENA Administration Protocol Vancomycin HCl 1,000 mg/ 250 mls @ 250 mls/hr 05/27/20 22:00 05/28/20 09:15 Sodium Chloride IV 250 mls/hr Q12H MENA Administration Protocol As Directed Lisinopril 20 mg 05/28/20 09:00 05/28/20 09:12 Prinivil PO 20 mg DAILY MENA Administration PFSH Acute PFSH: Medical History Anxiety Hypertension Surgical History History of Family History Other CAD (coronary artery disease) Social History Smoking and tobacco status: never smoked Alcohol intake: never Substance/Drug Use: never Vitals/I&O/Wt Last Vital Signs Temp 99.2 F 05/28/20 07:47 Pulse 115 H 05/28/20 07:47 Resp 18 05/28/20 07:47 BP 151/97 05/28/20 07:47 Pulse Ox 93 05/28/20 07:47 05/27/20 05/28/20 05/28/20 22:59 06:59 14:59 Intake Total 480 / 480 250 / 730 Output Total 350 / 350 Balance 480 / 480 -100 / 380 Weight last 48 hrs Weight 255 lb 1 oz Weight 220 lb Physical Exam Narrative: EXAM NARRATIVE: General: alert, NAD HEENT: conj clear, EOMI, PERRL, mmm, Neck: supple, no meningismus Heme: no cervical LAP Pulmonary: Reduced breath sounds on left lower lobe Cardiovascular: rrr, nl s1s2, no mrg Abdomen: soft, nt, nd, no r/g, bs+ Extremities: pulses +, no edema, no c/c : no CVA tenderness Skin: intact, no rash MSK: no back or neck pain Neurologic: grossly intact Data Micro: Micro: Microbiology 05/27/20 17:00 Blood Culture - Pr eliminary Blood SPECIMEN [facility] 05/27/20 16:55 Blood Culture - Pr eliminary Blood SPECIMEN [facility] A&P Assessment and plan (1) Community acquired pneumonia: Status: Acute Qualifiers: Laterality: left Lung location: lower lobe of lung Qualified Code(s): J18.9 - Pneumonia, unspecified organism (2) Pleural effusion: Status: Acute #Community-acquired pneumonia with loculated left pleural effusion -Patient not in significant respiratory distress only complaint of mild discomfort -Saturating 95% on 2 L of oxygen able to have conversations - Labs revealed leukocytosis -CT angiogram no evidence of PE, moderate volume multiloculated left pleural effusion, complete collapse of left lower lobe, inferior segment of lingular atelectasis -Thoracentesis performed today on left lateral side after confirming site with ultrasound -able to drain 200 cc straw-colored with some fibrinous material in the drain -Pleural fluid sent for cytology, cell count, albumin, protein, LDH, bacterial cultures, fungal, AFB -Blood cultures pending -Recommend to send for MRSA nares, procalcitonin urine Legionella - Currently on Rocephin and vancomycin -Although bacterial however would like to recommend atypical coverage until we get to culture results -If MRSA nares negative can discontinue vancomycin -If patient worsens clinically even on antibiotic coverage, would recommend CT surgery consultation in view of complicated pleural effusion. Medical condition, investigations, labs, imaging reviewed in detail and everything including plan of care explained to the patient. She verbalized understanding and agreed with the plan. Recommendations conveyed to Dr. Finney hospitalist on the case Consult Attestations Medical Necessity Statement: Complicated pleural effusion likely secondary to pneumonia, started on antibiotics and is on 2 L oxygen supplementation would need close monitoring Time Spent in Patient Care: Greater than 35 minutes (>than 50% of time spent in counselling and/or direct pt care on unit) . 60 minutes including time spent on thoracentesis, counseling and explaining the patient about the medical condition and procedure and related complications. 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
[2020-05-28 10:54] LABS: Apprearance, Body Fluid CLOUDY; Color, Body Fluid PALE YELLOW
[2020-05-28 11:00] LABS: PATH Referral YES
[2020-05-28 11:49] LABS: Procalcitonin 2.93 ng/mL (0-0.5)
[2020-05-28 11:58] LABS: Fluid Alkaline Phos. 33 IU/L; Glucose Body Fluid < 2.0 mg/dL
[2020-05-28 11:59] LABS: Albumin Body Fluid 2.5 g/dL; Amylase Body Fluid 23 U/L; Cholesterol Body Fluid 68 mg/dL (0-200); LDH Body Fluid 888 U/L; Total Protein Pleural Fluid 4.7 g/dL; Triglycerides Body Fluid 66 mg/dL (0-150); Uric Acid Body Fluid 7 mg/dL
--- NOTE | 2020-05-28 12:44 | P.PN_ITS ---
Subjective Subjective: Interval history: Ruth reports she feels perhaps a little bit better after the thoracentesis. Only 200 cc was obtained. Medications: Reviewed: Yes Vitals/I&O/Wt Last Vital Signs Temp 100.2 F H 05/28/20 11:18 Pulse 120 H 05/28/20 11:18 Resp 18 05/28/20 11:18 BP 144/91 05/28/20 11:18 Pulse Ox 93 05/28/20 11:18 05/27/20 05/28/20 05/28/20 22:59 06:59 14:59 Intake Total 480 / 480 250 / 730 Output Total 350 / 350 Balance 480 / 480 -100 / 380 Weight last 48 hrs Weight 115.694 kg Weight 99.79 kg Physical Exam Narrative: EXAM NARRATIVE: General exam is a white female, no apparent distress. Fever was noted last night Cardiovascular tachycardic on my exam around 110, no murmur Lungs diminished breath sounds left lung, right clear Abdomen is soft with positive bowel sounds. No obvious organomegaly was deferred Extremities no cyanosis clubbing or edema. Cap refill brisk Data : 05/28/20 04:27 05/28/20 04:27 Micro: Microbiology 05/27/20 22:30 MRSA Culture - Final Nose 05/27/20 17:00 Blood Culture - Preliminary Blood SPECIMEN COLLECTED 05/27/20 16:55 Blood Culture - Preliminary Blood SPECIMEN COLLECTED A&P Assessment and plan (1) Community acquired pneumonia: Continue Rocephin and vancomycin Await pleural fluid studies Await sputum culture She is required the addition of 2 L of oxygen secondary to pneumonia and pleural effusion MRSA PCR was negative. However, will await culture of pleural fluid prior to consideration of discontinuation of vancomycin as well as clinical improvement. Appreciate pulmonary evaluation. I have discussed with them her current clinical scenario. At this point the plan is to continue medical treatment, and reevaluate with CT on Saturday. Add telemetry as she has some tachycardia From consultation from pulmonary they would like to continue atypical coverage at this time so Zithromax will continue. She was given a dose in the emergency department. Status: Acute Qualifiers: Laterality: left Lung location: lower lobe of lung Qualified Code(s): J18.9 - Pneumonia, unspecified organism (2) Pleural effusion: Thoracentesis was performed today yielding 200 cc. Awaiting studies Status: Acute (3) Leukocytosis: Secondary to pneumonia. Overall unchanged Blood cultures negative today Status: Acute (4) Hyperglycemia: Hemoglobin A1c not elevated. 5.8% Status: Acute (5) Hyponatremia: Likely secondary to pulmonary process. Slightly better today TSH normal Status: Acute Additional A&P Information Hypertension, continue home medications Anxiety continue home medications Heparin subcutaneous for DVT prophylaxis Full code Attestations Medical Necessity Statement*: Needs continued hospitalization for IV antibiotics secondary to pneumonia with parapneumonic effusion Coding Level of Care Code Acute Aeronautical Drafter for [facility] Fwd Diagnoses Community acquired pneumonia J18.9 Laterality: left Lung location: lower lobe of lung Pleural effusion J90 Leukocytosis D72.829 Hyperglycemia R73.9 Hyponatremia E87.1
[2020-05-28] MEDS: heparin 5,000 unit/mL INJ 1 mL 5000 UNIT SUBCUT (13:21)
[2020-05-28] MEDS: HYDROcodone-acetaminophen 5-325 mg Tablet 1 TAB PO (16:40)
[2020-05-28] MEDS: sodium chloride 0.45% 1,000 ML 75 ML IV (17:40)
[2020-05-28] MEDS: cefepime 2,000 MG in sodium chloride 0.9% (plus) 50 ML 100 MG IV (17:40)
[2020-05-28] MEDS: azithromycin 500 MG in sodium chloride 0.9% 250 ML 250 MG IV (18:32)
[2020-05-28 21:59] LABS: Vancomycin Trough 6.8 ug/mL (10-15)
--- NOTE | 2020-05-28 23:03 | PC.PHAR ---
Vancomycin trough level on dose of 1000mmg IVPB every 12 hours is 6.8. Dosage is increased to 1000mg IVPB every 8hours with another trough to be obtained after the third q8h dose.
[2020-05-29] VITALS (8 sets, daily range): BP systolic 100–153; BP diastolic 68–93; PULSE 104–117; RESP 18–20; TEMP 36.7–37.6; O2SAT 91–95
[2020-05-29] MEDS: heparin 5,000 unit/mL INJ 1 mL 5000 UNIT SUBCUT ×2 (00:34→14:58)
[2020-05-29] MEDS: acetaminophen 325 mg Tablet 650 MG PO ×2 (03:17→15:05)
[2020-05-29 05:16] LABS: Basophils # 0.2 10^3/uL (0.0-0.1); Basophils % 0.7 %; Eosinophils # 0.1 10^3/uL (0.0-0.8); Eosinophils % 0.6 %; Hemoglobin 11.6 g/dL (11.5-15.3); Lymphocytes # 1.5 10^3/uL (0.8-4.8); Lymphocytes % 6.3 %; Mean Corpuscular HGB Conc 29.7 g/dL (30.0-36.0); Mean Corpuscular Hemoglobin 30.3 pg (28.0-34.0); Mean Corpuscular Volume 101.8 fL (81-99); Mean Platelet Volume 12.5 fL (7.4-10.4); Monocytes # 1.9 10^3/uL (0.2-0.9); Monocytes % 8.1 %; Neutrophils # 18.81 10^3/uL (1.8-7.7); Nucleated Red Blood Cells % 0 %; Platelet Count 223 10^3/cmm (130-400); Red Blood Count 3.83 10^6/uL (4.1-5.3); Red Cell Distribution Width 13.8 % (12.1-15.1); White Blood Count 23.2 10^3/uL (4.0-10.0)
[2020-05-29] MEDS: cefepime 2,000 MG in sodium chloride 0.9% (plus) 50 ML 100 MG IV ×2 (06:11→18:29)
[2020-05-29 07:12] LABS: Slide Review Slide Review Perform
[2020-05-29] MEDS: vancomycin 1,000 MG in sodium chloride 0.9% 250 ML 250 MG IV ×2 (07:13→15:05)
--- NOTE | 2020-05-29 07:36 | P.PN_ITS ---
Subjective Subjective: Interval history: Patient reported feeling better and appears to be clinically much better as well. Took a shower today and says her appetite is also improving. Denied any other complaints Medications: Reviewed: Yes Vitals/I&O/Wt Last Vital Signs Temp 98.8 F 05/29/20 04:00 Pulse 107 H 05/29/20 04:00 Resp 18 05/29/20 04:00 BP 100/68 05/29/20 04:00 Pulse Ox 91 05/29/20 04:00 05/28/20 05/29/20 05/29/20 22:59 06:59 14:59 Intake Total 590 / 710 250 / 960 Output Total 400 / 400 300 / 700 Balance 190 / 310 -50 / 260 Weight last 48 hrs Weight 260 lb Weight 255 lb 1 oz Weight 220 lb Physical Exam Narrative: EXAM NARRATIVE: General: alert, NAD HEENT: conj clear, EOMI, PERRL, mmm, Neck: supple, no meningismus Heme: no cervical LAP Pulmonary: Reduced breath sounds on left lower lobe Cardiovascular: rrr, nl s1s2, no mrg Abdomen: soft, nt, nd, no r/g, bs+ Extremities: pulses +, no edema, no c/c : no CVA tenderness Skin: intact, no rash MSK: no back or neck pain Neurologic: grossly intact Data : 05/29/20 04:50 05/29/20 10:42 Micro: Microbiology 05/29/20 05:00 Blood Culture - Preliminary Blood SPECIMEN COLLECTED 05/28/20 22:07 Legionella Urinary Antigen - Final Urine,Voided Bacterial Antigens - Final 05/27/20 16:55 Blood Culture - Preliminary Blood Gram positive cocci 05/27/20 17:00 Blood Culture - Preliminary Blood Gram positive cocci 05/27/20 23:29 Gram Stain - Final Sputum - Expectorated Sputum 05/28/20 10:10 Gram Stain - Final Pleural Fluid 05/27/20 22:30 MRSA Culture - Final Nose A&P Assessment and plan (1) Pleural effusion: Status: Acute (2) Community acquired pneumonia: Status: Acute Qualifiers: Laterality: left Lung location: lower lobe of lung Qualified Code(s): J18.9 - Pneumonia, unspecified organism #Community-acquired pneumonia with loculated left pleural effusion -Patient clinically much better since admission -Saturating 95% on 2 L of oxygen able to have conversations -05/27/[address] angio no evidence of PE, moderate volume multiloculated left pleural effusion, complete collapse of left lower lobe, inferior segment of lingular atelectasis -05/28/2020 thoracentesis performed on left lateral side after confirming site with ultrasound -able to drain 200 cc straw-colored with some fibrinous material in the drain -Blood cultures showing gram-positive organisms and pleural fluid with staining showed some gram-positive cocci in pairs and gram-negative organisms; -High procalcitonin suggestive of bacterial infection -Until then continue vancomycin and cefepime and de-escalate based on susceptibility -Ideally bacterial pneumonia with simple pleural effusion can be treated with antibiotics; but this patient has loculated pleural effusions on CT chest and yesterday's attempt to drain single pocket yielded only 200 cc of fluid. Will repeat CT chest on 05/30/2020 to assess loculations and fluid pockets. If there is a big pocket would recommend CT-guided aspiration. Medical condition, investigations, labs, imaging reviewed in detail and everything including plan of care explained to the patient. She verbalized understanding and agreed with the plan. Recommendations conveyed to Dr. Finney hospitalist on the case Attestations Medical Necessity Statement*: Community-acquired pneumonia, possible strep pneumonia, requiring O2 supplementation and a large left loculated effusion Time Spent in Patient Care: 16 - 35 minutes (>than 50% of time spent in counselling and/or direct pt care on unit) . Coding Level of Care Code Established Pt Acute Pathology Secretary for Amador Jones Patient Type Established Medical Decision Making Moderate Complexity Diagnoses Pleural effusion J90 Community acquired pneumonia J18.9 Laterality: left Lung location: lower lobe of lung Time Spent (min) 25
--- NOTE | 2020-05-29 07:53 | XRR_ITS ---
PROCEDURE INFORMATION: Exam: XR Chest, 1 View Exam date and time: 05/29/2020 7:54 AM Age: 54 years old Clinical indication: Condition or disease; Lung condition and disease; Pneumonia; Other: Unknown; Additional info: Follow up pneumonia TECHNIQUE: Imaging protocol: XR of the chest Views: 1 view. COMPARISON: CR XR chest 1V portable [id number] 05/28/2020 11:06 AM FINDINGS: Lungs/pleura: Large loculated left pleural fluid collection appears unchanged, again with associated atelectasis sparing only the apex. No consolidation or evidence effusion on the right. No visible pneumothorax. Heart/Mediastinum: Cardiac silhouette mildly enlarged. Cardiomediastinal silhouette remains slightly shifted rightward. Bones/joints: Unremarkable. XR/XR chest 1V portable [id number] IMPRESSION: No significant change large loculated left pleural effusion with associated atelectasis.
[2020-05-29] MEDS: lisinopril 20 mg Tablet PO (08:19)
[2020-05-29] MEDS: amlodipine 10 mg Tablet PO (08:19)
[2020-05-29] MEDS: escitalopram 10 mg Tablet PO (08:19)
[2020-05-29] MEDS: sodium chloride 0.45% 1,000 ML 75 ML IV (11:21)
[2020-05-29 11:23] LABS: Alanine Aminotransferase 15 U/L (0-33); Albumin Level 2.7 g/dL (3.5-5.2); Alkaline Phosphatase 134 IU/L (35-105); Anion Gap 15.1 (5-19); Aspartate Amino Transferase 33 U/L (0-32); Blood Urea Nitrogen 10 mg/dL (6-20); Calcium 8.7 mg/dL (8.5-10.5); Carbon Dioxide 27 mmol/L (22-29); Chloride 96 mmol/L (98-107); Creatinine Clr Calc Pharmacy 104.2906; Globulin 4.3 g/dL (1.3-4.6); Glomerular Filtration Rate 74.2 mL/min (90-130); Glucose 142 mg/dL (65-115); Osmolality Calculated 281 mOsm/kg (285-295); Potassium 3.1 mmol/L (3.5-5.1); Sodium 135 mmol/L (136-145); Total Bilirubin 0.6 mg/dL (0.15-1.2)
--- NOTE | 2020-05-29 14:17 | PM.PN ---
Subjective Subjective: Interval history: Danette feels better. Less short of breath. Less pain. Medications: Reviewed: Yes Vitals/I&O/Wt Last Vital Signs Temp 98.6 F 05/29/20 12:00 Pulse 117 H 05/29/20 13:00 Resp 20 H 05/29/20 13:00 BP 128/74 05/29/20 12:00 Pulse Ox 92 05/29/20 13:00 05/28/20 05/29/20 05/29/20 22:59 06:59 14:59 Intake Total 590 / 710 250 / 960 1540 / 1540 Output Total 400 / 400 300 / 700 800 / 800 Balance 190 / 310 -50 / 260 740 / 740 Weight last 48 hrs Weight 117.934 kg Weight 115.694 kg Weight 99.79 kg Physical Exam Narrative: EXAM NARRATIVE: General exam is a white female, no apparent distress. Fever was noted last night Cardiovascular less tachycardia than yesterday. No murmur Lungs diminished breath sounds left lung, right clear Abdomen is soft with positive bowel sounds. No obvious organomegaly was deferred Extremities no cyanosis clubbing or edema. Cap refill brisk Data : 05/29/20 04:50 05/29/20 10:42 Micro: Microbiology 05/29/20 10:42 Blood Culture - Preliminary Blood SPECIMEN COLLECTED 05/29/20 05:00 Blood Culture - Preliminary Blood SPECIMEN COLLECTED 05/28/20 22:07 Legionella Urinary Antigen - Final Urine,Voided Bacterial Antigens - Final 05/27/20 16:55 Blood Culture - Preliminary Blood Gram positive cocci 05/27/20 17:00 Blood Culture - Preliminary Blood Gram positive cocci 05/27/20 23:29 Gram Stain - Final Sputum - Expectorated Sputum 05/28/20 10:10 Gram Stain - Final Pleural Fluid 05/27/20 22:30 MRSA Culture - Final Nose A&P Assessment and plan (1) Community acquired pneumonia: Continue Rocephin and vancomycin, azithromycin White blood cell count decreasing Pleural fluid studies reviewed. Exudate. Blood with gram-positive cocci, ID and sensitivity pending. Gram stain pleural fluid with gram-positive cocci Continue oxygen as needed MRSA PCR was negative. However, will await culture of pleural fluid and blood prior to consideration of discontinuation of vancomycin as well as clinical improvement. Appreciate pulmonary evaluation. I have discussed with them her current clinical scenario. At this point the plan is to continue medical treatment, and reevaluate with CT on Saturday. Continue telemetry Status: Acute Qualifiers: Laterality: left Lung location: lower lobe of lung Qualified Code(s): J18.9 - Pneumonia, unspecified organism (2) Pleural effusion: Thoracentesis was performed today yielding 200 cc. Exudative Status: Acute (3) Leukocytosis: Secondary to pneumonia. Slightly improved Blood cultures positive. Redrawn today Status: Acute (4) Hyperglycemia: Hemoglobin A1c not elevated. 5.8% Status: Acute (5) Hyponatremia: Likely secondary to pulmonary process. Improved TSH normal Status: Acute Additional A&P Information Hypertension, continue home medications Anxiety continue home medications Heparin subcutaneous for DVT prophylaxis Full code Attestations Medical Necessity Statement*: Needs continued hospitalization for IV antibiotics secondary to community-acquired pneumonia. 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
[2020-05-29] MEDS: potassium chloride ER 10 mEq Tablet 40 MEQ PO (14:59)
[2020-05-29] MEDS: azithromycin 500 MG in sodium chloride 0.9% 250 ML 250 MG IV (17:08)
[2020-05-29 23:16] LABS: Vancomycin Trough 12.7 ug/mL (10-15)
[2020-05-30] VITALS (7 sets, daily range): BP systolic 110–153; BP diastolic 73–92; PULSE 75–112; RESP 16–20; TEMP 36.7–37.5; O2SAT 93–99
[2020-05-30] MEDS: vancomycin 1,000 MG in sodium chloride 0.9% 250 ML 250 MG IV ×4 (00:02→22:38)
[2020-05-30] MEDS: acetaminophen 325 mg Tablet 650 MG PO ×2 (00:04→18:47)
[2020-05-30 04:54] LABS: Basophils # 0.2 10^3/uL (0.0-0.1); Basophils % 0.7 %; Eosinophils # 0.3 10^3/uL (0.0-0.8); Eosinophils % 0.9 %; Hematocrit 35.5 % (37.0-47.0); Hemoglobin 11.1 g/dL (11.5-15.3); Lymphocytes % 6.8 %; Mean Corpuscular HGB Conc 31.3 g/dL (30.0-36.0); Mean Corpuscular Volume 95.9 fL (81-99); Monocytes # 1.9 10^3/uL (0.2-0.9); Monocytes % 6.4 %; Neutrophils # 23.72 10^3/uL (1.8-7.7); Neutrophils % 82.5 %; Nucleated Red Blood Cells % 0 %; Platelet Count 305 10^3/cmm (130-400); Red Cell Distribution Width 13.6 % (12.1-15.1); White Blood Count 28.8 10^3/uL (4.0-10.0)
[2020-05-30 05:14] LABS: Blood Urea Nitrogen 10 mg/dL (6-20); Calcium 8.7 mg/dL (8.5-10.5); Carbon Dioxide 27 mmol/L (22-29); Chloride 98 mmol/L (98-107); Glomerular Filtration Rate 86.6 mL/min (90-130); Glucose 142 mg/dL (65-115); Osmolality Calculated 281 mOsm/kg (285-295); Sodium 135 mmol/L (136-145)
[2020-05-30 05:17] LABS: Anion Gap 13.6 (5-19); Potassium 3.6 mmol/L (3.5-5.1)
[2020-05-30] MEDS: sodium chloride 0.45% 1,000 ML 75 ML IV (05:29)
[2020-05-30] MEDS: cefepime 2,000 MG in sodium chloride 0.9% (plus) 50 ML 100 MG IV ×2 (05:30→21:52)
--- NOTE | 2020-05-30 06:00 | USCV_ITS ---
Rekha Humphrey Age: 54 Gender: F : 1965 Exam Date: 05/30/2020 07:46 Ordering Phys: Curtis Finney MD Technologist: Rashid Johnson [place] [facility] [place]: POSITIVE BLOOD CULTURE BP: 132 / 78 HR: 111 Rhythm: Sinus Technical Quality: Adequate MEASUREMENTS (Male / Female) Normal Values 2D ECHO LV Diastolic Diameter PLAX 2.8 cm 4.2 - 5.9 / 3.9 - 5.3 cm LV Systolic Diameter PLAX 2.0 cm IVS Diastolic Thickness 1.0 cm 0.6 - 1.0 / 0.6 - 0.9 cm IVS Systolic Thickness 1.3 cm LVPW Diastolic Thickness 1.1 cm 0.6 - 1.0 / 0.6 - 0.9 cm LVPW Systolic Thickness 1.0 cm LVOT Diameter 2.0 cm LV Ejection Fraction 2D Teich 53.7 % LV Ejection Fraction MOD 2C 51.3 % LV Ejection Fraction 2C AL 50.5 % LA Diameter 3.3 cm LA Width 2.9 cm LA Height 4.0 cm RA Width 3.1 cm RA Height 4.2 cm Aorta at Sinotubular Diameter 0.9 cm M-MODE LV Diastolic Diameter MM 4.5 cm 4.2 - 5.9 / 3.9 - 5.3 cm LV Systolic Diameter MM 3.2 cm LV Ejection Fraction MM Teich 55.1 % IVS Diastolic Thickness MM 0.9 cm 0.6 - 1.0 / 0.6 - 0.9 cm IVS Systolic Thickness MM 1.2 cm LVPW Diastolic Thickness MM 1.1 cm 0.6 - 1.0 / 0.6 - 0.9 cm LVPW Systolic Thickness MM 1.6 cm RV Diastolic Diameter MM 1.7 cm Aortic Annulus Diameter 3.8 cm LA Ao Ratio MM 1.1 MV E Point Septal Separation 0.9 cm DOPPLER AV Peak Velocity 153.0 cm/s LVOT Peak Velocity 101.0 cm/s AV Area Cont Eq vti 2.1 cm squared AV Area Cont Eq pk 2.0 cm squared MV Area PHT 5.0 cm squared Mitral E to A Ratio 0.9 MV E' Velocity 40.5 cm/s Mitral E to MV E' Ratio 5.8 Mitral E to LV E' Lateral Ratio 5.6 Mitral E to LV E' Septal Ratio 6.0 TR Peak Velocity 138.3 cm/s TR Peak Gradient 7.7 mmHg TV Peak E Velocity 97.0 cm/s Right Atrial Pressure 3.0 mmHg Pulmonary Artery Systolic Pressu 10.7 mmHg FINDINGS Left Ventricle Normal left ventricular size and systolic function, EF 60 %. Grade I/IV diastolic dysfunction (abnormal relaxation filling pattern), normal to mildly elevated filling pressures. Right Ventricle Normal right ventricular systolic function. Right Atrium Normal right atrial size. Left Atrium Normal left atrial size. Mitral Valve Minimally thickened Aortic Valve Thickened aortic valve. Tricuspid Valve Tricuspid valve not well visualized. Pulmonic Valve Not well visualized Pericardium No pericardial effusion. Aorta Normal ascending aorta dimension. CONCLUSIONS Normal left ventricular size and systolic function, EF 60 %. Grade I/IV diastolic dysfunction (abnormal relaxation filling pattern), normal to mildly elevated filling pressures. Minimally thickened aortic and mitral valves There is no pericardial effusion. No obvious cardiac masses or vegetations. Technically difficult study because of the poor ultrasonic window. Consider SANDRA, if clinically indicated Dr Leo Mccann MD FACC (Electronically Signed) Final Date: 30 May 2020 10:08 S
[2020-05-30] MEDS: escitalopram 10 mg Tablet PO (08:10)
[2020-05-30] MEDS: amlodipine 10 mg Tablet PO (08:10)
[2020-05-30] MEDS: lisinopril 20 mg Tablet PO (08:10)
--- NOTE | 2020-05-30 11:24 | US_ITS ---
WS: [id number] INDICATION: Pleural effusion TECHNIQUE: Ultrasound left chest FINDINGS: Again seen is the mild to moderate loculated left pleural effusion. Small pocket was select ed in the left upper chest however access cannot be obtained due to scapula overlap. No other appropr iate pockets to safely perform thoracentesis. US/US chest [id number] IMPRESSION: Loculated mild to moderate left pleural effusion with atelectatic l martin. Thoracentesis not performed.
--- NOTE | 2020-05-30 11:28 | P.PN_ITS ---
Subjective Subjective: Interval history: She says she is doing okay. She is coughing up some yellow secretions. Denies any chest pain. Is not short of breath. Has been try to sit up at the edge of the bed. Walks to the restroom unassisted. Vitals/I&O/Wt Last Vital Signs Temp 98.4 F 05/30/20 08:00 Pulse 95 05/30/20 08:00 Resp 20 H 05/30/20 08:00 BP 131/82 05/30/20 08:00 Pulse Ox 95 05/30/20 08:00 05/29/20 05/30/20 05/30/20 22:59 06:59 14:59 Intake Total 950 / 2740 1450 / 4190 Output Total 0 / 800 2 / 802 Balance 950 / 1940 1448 / 3388 Weight last 48 hrs Weight 122.515 kg Weight 117.934 kg Physical Exam Const: COMMON NORMALS: no acute distress and patient oriented x3 HENMT: COMMON NORMALS: oropharynx normal Neck/C-Spine: COMMON NORMALS: no JVD Resp: COMMON NORMALS: normal respiratory effort AUSCULTATION: diminished lung sounds on the left in the lower lung m[place]leton Cardio: COMMON NORMALS: no JVD, regular rhythm, S1 normal heart sound present, S2 normal heart sound present and No murmurs present (Cardio) RHYTHM: regular rhythm HEART SOUNDS: S1 normal heart sound present and S2 normal heart sound present GI: COMMON NORMALS: Normal to inspection, nondistended, normoactive bowel sounds present, Soft to palpation and non-tender PALPATION: Yes Soft to palpation Extremity: COMMON NORMALS: no joint enlargement GENERAL: Yes edema (Trace) Neuro: COMMON NORMALS: patient oriented x3 and moves all extremities Skin: COMMON NORMALS: no rashes or lesions noted GENERAL SKIN EXAM: no rashes or lesions noted Data : 05/30/20 04:31 05/30/20 04:31 Micro: Microbiology 05/29/20 10:42 Blood Culture - Preliminary Blood NEGATIVE TO DATE 05/29/20 05:00 Blood Culture - Preliminary Blood NEGATIVE TO DATE 05/27/20 17:00 Blood Culture - Preliminary Blood Strep species, alpha hemolytic 05/28/20 10:10 Gram Stain - Final Pleural Fluid Body Fluid Culture - Preliminary 05/27/20 23:29 Gram Stain - Final Sputum - Expectorated Sputum Sputum Culture - Preliminary A&P Assessment and plan (1) Community acquired pneumonia: Discussed with pulmonology this morning. Recommendation for thoracentesis of largest pocket if possible. Follow-up repeat CT scan today shows increased left pleural effusion. Discussed with radiology and ordered thoracentesis and laboratory analysis. Continue Rocephin and vancomycin, azithromycin. Pulmonology recommendation be on thoracentesis to continue antibiotics. WBC count persists. Follow-up blood cultures. Blood with gram-positive cocci, ID and sensitivity pending. Gram stain pleural fluid with gram-positive cocci Prior fluid studies suggestive of exudative effusion. DC IV fluid. Continue oxygen as needed MRSA PCR was negative. However, will await culture of pleural fluid and blood prior to consideration of discontinuation of vancomycin as well as clinical improvement. Continue telemetry Status: Acute Qualifiers: Laterality: left Lung location: lower lobe of lung Qualified Code(s): J18.9 - Pneumonia, unspecified organism (2) Gram-positive bacteremia: Streptococcal species noted in blood on 05/27. Suspect is related to complicated pneumonia. Repeat blood culture 05/29 so far without growth. TTE with grade 1 diastolic dysfunction. Does not have signs of septic emboli. Monitor for any additional changes to suggest ongoing bacteremia, septic emboli, at which point may consider additional relation for endocarditis. Status: Acute (3) Pleural effusion: Increased effusion on repeat CT. Thoracentesis with US guidance as discussed with pulmonology, radiology and patient. VT prophylactic heparin was held yesterday. Thoracentesis was performed today yielding 200 cc. Exudative Status: Acute (4) Leukocytosis: Secondary to pneumonia. Status: Acute (5) Hyperglycemia: Hemoglobin A1c not elevated. 5.8% Status: Acute (6) Hyponatremia: Likely secondary to pulmonary process. Improved TSH normal Status: Acute Additional A&P Information Hypertension, continue home medications Anxiety continue home medications Heparin subcutaneous for DVT prophylaxis Full code Attestations Medical Necessity Statement*: Continue admission for assessment management of complicated pneumonia with parapneumonic effusion, assessment of bacteremia. 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
[2020-05-30 12:49] LABS: INR 0.95 (0.8-1.2)
--- NOTE | 2020-05-30 19:00 | CT_ITS ---
WS: [id number] CT CHEST TECHNIQUE: Noncontrast CT of the chest with coronal and sagittal reformatted images. CLINICAL INFORMATION: follow up effusion COMPARISON: CT May 27, 2020 DLP: 1097.[address] scans at [facility] use at least one of these dose optimization techniques: automat ed exposure control; mA and/or kV adjustment per patient size (includes targeted exams where dose is matched to clinical indication); or iterative reconstruction. FINDINGS: Multiloculated moderate left pleural effusion progressed from previous. Left lower lobe compressive a telectasis with volume loss left lower lobe. Elevation left hemidiaphragm. Left lung apex remains wel l aerated. Collapse left lower lobe and lingula. Right lung remains well aerated. Slight atelectasis right lower lobe. Small pericardial effusion. No axillary lymphadenopathy. No mediastinal lymphadenopathy. Small esophageal hiatal hernia. Large p artially visualized gallbladder calculi. This can be followed up with ultrasound. IMPRESSION: 1. Progressed loculated left pleural effusion moderate in size with collapse left lower lobe and daxa gula. Pleural fluid is progressed from May 27, 2020. 2. Right lung remains well aerated. 3. Small pericardial effusion. 4. Gallbladder calculi.
[2020-05-30] MEDS: azithromycin 500 MG in sodium chloride 0.9% 250 ML 250 MG IV (20:22)
[2020-05-31] VITALS (36 sets, daily range): BP systolic 78–160; BP diastolic 56–92; PULSE 78–112; RESP 11–28; TEMP 36.2–37.4; O2SAT 88–98
[2020-05-31] MEDS: acetaminophen 325 mg Tablet 650 MG PO (00:25)
--- NOTE | 2020-05-31 05:14 | PM.CONSULT ---
Providers/Reason For Consult Consulting Physican/Specialty*: Dr. Francis Reason for Consult*: Left loculated effusion/empyema Attending Physician: Christopher Francis Primary Care Provider: AMANDA Luo History of Present Illness History of Present Illness Rekha Humphrey is a 54 year old female concerning a complex left loculated pleural effusion/empyema. She was admitted through emergency department after visit there on May 27 with complaints of difficulty with breathing, cough, left-sided chest discomfort and low-grade fevers for about a week prior to presentation. 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 She had noted some modest left-sided chest discomfort upon returning recently and this had been at least 2 to 3 weeks ago. She had been seen in [facility] the day of admission and x-ray revealed what was described as a large effusion versus pneumonia. She was referred to the emergency department at that time. Apparently, a [facility] COVID-19 test there, which I understand is an antibody test, was negative. Since her admission, she has been placed on Rocephin/Zithromax/vancomycin. She did grow Streptococcus in her blood initially upon presentation. Most recent blood cultures have been negative. She has clinically improved though radiographically she really has not made much progress. She is undergone a thoracentesis and apparent catheter placement by pulmonary medicine with 200 cc of fluid returned which is come out of cultures as a mixed juan carlos of gram-positive cocci and gram-negative rods. I have no other ID on these results.. Her white blood cell count is increased from 26,000 almost 29,000 yesterday. I have personally reviewed the series of chest x-rays as well as the most recent CT scan performed yesterday at 7 PM. The effusion now has become more complex, has progressed, and there is marked entrapment of the left lower lobe and much of the lateral inferior left hemithorax. Small pericardial effusion is also noted. It should be noted a CTA of the chest was performed on admission of May 27 it was negative for PE but also demonstrated marked entrapment of the left lower lobe and atelectasis of the lingula segment of the left upper lobe. She does not use tobacco. She did have one other episode of pneumonia about 15 years ago. They, she has improved since hospitalization, though clearly radiographically this process has progressed. Review of Systems Const: Reports: fever(s) and fatigue ENMT: Denies: hoarseness Card: Denies: chest pain Resp: Reports: dyspnea, productive cough, pain on inspiration and chest congestion; Denies: hemoptysis GI: Reports: nausea; Denies: abdominal pain or dysphagia : Denies: difficulty voiding Neuro: Denies: headache(s) Psych: Reports: anxiety Meds/Allergies Home Medications and Allergies Home Medications Medication Instructions Recorded Confirmed Last Taken Type Vitamin C 1 tab PO DAILY 05/27/20 05/27/20 05/26/20 History acetaminophen [Tylenol] 650 mg PO PRN 05/27/20 05/27/20 05/27/20 History alprazolam 0.25 mg PO BID PRN 05/27/20 05/27/20 05/26/20 History amlodipine 10 mg PO DAILY 05/27/20 05/27/20 05/26/20 History escitalopram oxalate 10 mg PO DAILY 05/27/20 05/27/20 05/26/20 History lisinopril 20 mg PO DAILY 05/27/20 05/27/20 05/26/20 History multivitamin [Multiple Vitamins] 1 tab PO DAILY 05/27/20 05/27/20 05/26/20 History Allergies Allergy/AdvReac Type Severity Reaction Status Date / Time No Known Allergies Allergy Verified 05/27/20 16:29 Current Medications Current Medications Generic Name Dose Route Start Last Admin Trade Name Freq PRN Reason Stop Dose Admin Acetaminophen 650 mg 05/27/20 21:12 05/31/20 00:25 Tylenol PO 650 mg Q6H PRN Administration Mild/Mod Pain Or Temp >/= 101 Hydrocodone Bitart/Acetaminophen 1 tab 05/27/20 21:12 05/28/20 16:40 Marshall 5-325 Mg PO 1 tab Q4H PRN Administration MODERATE TO SEVERE PAIN Amlodipine Besylate 10 mg 05/28/20 09:00 05/30/20 08:10 Norvasc PO 10 mg DAILY MENA Administration Escitalopram Oxalate 10 mg 05/28/20 09:00 05/30/20 08:10 Lexapro PO 10 mg DAILY MENA Administration Heparin Sodium (Beef Lung) 5,000 unit 05/28/20 13:00 05/29/20 14:58 Heparin SUBCUT 5,000 unit Q12H MENA Administration Azithromycin 500 mg/ Sodium 250 mls @ 250 mls/hr 05/28/20 18:00 05/30/20 21:47 Chloride IV Infused Q24H MENA Infusion Protocol Cefepime HCl 2,000 mg/ Sodium 50 mls @ 100 mls/hr 05/28/20 18:00 05/30/20 22:39 Chloride IV Infused Q12H MENA Infusion Protocol Vancomycin HCl 1,000 mg/ 250 mls @ 250 mls/hr 05/28/20 23:00 05/30/20 23:50 Sodium Chloride IV Infused Q8H MENA Infusion Lisinopril 20 mg 05/28/20 09:00 05/30/20 08:10 Prinivil PO 20 mg DAILY MENA Administration PFSH Acute PFSH: Medical History (Updated 05/31/20 @ 05:52 by Emery Amos MD) Anxiety Hypertension Pneumonia Approximately 15 years ago by history Surgical History History of Family History Other CAD (coronary artery disease) Social History Smoking and tobacco status: never smoked Alcohol intake: never Substance/Drug Use: never Vitals/I&O/Wt Last Vital Signs Temp 98.1 F 05/31/20 03:46 Pulse 106 H 05/31/20 03:46 Resp 20 H 05/31/20 03:46 BP 160/81 05/31/20 03:46 Pulse Ox 93 05/31/20 03:46 05/30/20 05/30/20 05/31/20 14:59 22:59 06:59 Intake Total 250 / 250 550 / 800 610 / 1410 Balance 250 / 250 550 / 800 610 / 1410 Weight last 48 hrs Weight 270 lb 1.6 oz Weight 260 lb Physical Exam Const: COMMON NORMALS: patient oriented x3 Neck/C-Spine: COMMON NORMALS: full ROM and no lymphadenopathy GENERAL: Yes normal visual inspection, Yes trachea midline and No lymphadenopathy Chest: COMMONS NORMALS: normal inspection of the chest and normal palpation of entire chest wall Resp: AUSCULTATION: diminished lung sounds on the left in the lower lung m[place] OTHER: She can only pull about 500 to 700 cc on incentive spirometry during my exam. Cardio: COMMON NORMALS: regular rate, regular rhythm, S1 normal heart sound present, No gallops present (Cardio) and No murmurs present (Cardio) RATE: regular rate RHYTHM: regular rhythm HEART SOUNDS: S1 normal heart sound present BRUITS: no abdominal aortic bruits GI: COMMON NORMALS: Soft to palpation and non-tender INSPECTION: Yes normal to inspection AUSCULTATION: Yes normoactive bowel sounds PALPATION: Yes Soft to palpation Extremity: COMMON NORMALS: no clubbing, cyanosis or edema Neuro: COMMON NORMALS: patient oriented x3, no focal motor deficits, no sensory deficits noted and gait normal Psych: COMMON NORMALS: mental status grossly normal Data Micro: Micro: Microbiology 05/28/20 10:10 Gram Stain - Final Pleural Fluid Anaerobic Culture - Preliminary Body Fluid Culture - Preliminary 05/27/20 23:29 Gram Stain - Final Sputum - Expector ated Sputum Sputum Culture - F inal 05/27/20 16:55 Blood Culture - Pr eliminary Blood Streptococcus p neumoniae 05/27/20 17:00 Blood Culture - Pr eliminary Blood Streptococcus p neumoniae 05/29/20 10:42 Blood Culture - Pr eliminary Blood NEGATIVE TO THEODORE E 05/29/20 05:00 Blood Culture - Pr eliminary Blood NEGATIVE TO THEODORE E A&P Assessment and plan (1) Empyema lun-year-old female with presentation of a large left loculated pleural effusion with left lower lobe lung entrapment currently being treated with antibiotic therapy as well as prior thoracentesis. Effusion has become more complex and now with the further left lower lobe lung entrapment and a rind consistent with progressive empyema. Recommendation: I would recommend left thoracotomy and decortication today. This will be a rather extensive process and I do recommend an epidural catheter preoperatively if anesthesia concurs. I would recommend extensive pulmonary toilet and care in the ICU postoperatively for pain management and aggressive pulmonary toilet. Rationale for my recommendation was carefully discussed with Ms. Humphrey. All questions have been answered. Details the risk of the procedure reviewed include the potential for injury to the lung or major vascular structures, prolonged air leak requiring prolonged need for chest tube, need for further procedures, and need for prolonged antibiotics. She stated understanding. We will tentatively plan to proceed with attempt at release of this trapped lung later today as operative schedule permits. 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
[2020-05-31] MEDS: HYDROcodone-acetaminophen 5-325 mg Tablet 1 TAB PO (05:31)
--- NOTE | 2020-05-31 05:47 | PC.NURSE ---
SHIFT SUMMARY/DR AMOS VISIT Has had a good night and says she actually feels better and rested better than has in a while. Does c/o some SOB with exertion. Has an occ cough of some thick green sputum. Has pain in left back & ribcage which increases with cough and deep breathing. Received po Tylenol X1 and po Hydrocodone X1. NPO after midnight. Dr Amos here early this am to discuss planned thoracotomy with decorication. Pulled up CT pictures and explained procedure and reasons it is necessary. Pts questions answered. Starting IV fluids and obtaining consent.
[2020-05-31 05:54] LABS: Basophils # 0.2 10^3/uL (0.0-0.1); Basophils % 0.5 %; Eosinophils # 0.3 10^3/uL (0.0-0.8); Eosinophils % 0.8 %; Hematocrit 37.2 % (37.0-47.0); Hemoglobin 11.6 g/dL (11.5-15.3); Lymphocytes # 1.9 10^3/uL (0.8-4.8); Lymphocytes % 6.2 %; Mean Corpuscular HGB Conc 31.2 g/dL (30.0-36.0); Mean Corpuscular Volume 96.1 fL (81-99); Mean Platelet Volume 11.9 fL (7.4-10.4); Monocytes # 1.8 10^3/uL (0.2-0.9); Monocytes % 5.8 %; Neutrophils % 83.7 %; Nucleated Red Blood Cells % 0 %; Platelet Count 335 10^3/cmm (130-400); Red Blood Count 3.87 10^6/uL (4.1-5.3); Red Cell Distribution Width 13.6 % (12.1-15.1)
[2020-05-31] MEDS: lactated ringers 1,000 ML 150 ML IV ×2 (06:01→17:28)
[2020-05-31 06:20] LABS: Anion Gap 11.1 (5-19); Blood Urea Nitrogen 8 mg/dL (6-20); Calcium 8.5 mg/dL (8.5-10.5); Carbon Dioxide 31 mmol/L (22-29); Chloride 96 mmol/L (98-107); Glomerular Filtration Rate 103.4 mL/min (90-130); Glucose 127 mg/dL (65-115); Osmolality Calculated 280 mOsm/kg (285-295); Potassium 3.1 mmol/L (3.5-5.1); Sodium 135 mmol/L (136-145)
--- NOTE | 2020-05-31 06:32 | PC.NURSE ---
CRITICAL LALB WBC 31.[address] Davies notified
[2020-05-31] MEDS: vancomycin 1,000 MG in sodium chloride 0.9% 250 ML 250 MG IV ×2 (06:38→23:41)
[2020-05-31] MEDS: lisinopril 20 mg Tablet PO (08:21)
[2020-05-31] MEDS: cefepime 2,000 MG in sodium chloride 0.9% (plus) 50 ML 100 MG IV ×2 (08:21→21:04)
[2020-05-31] MEDS: amlodipine 10 mg Tablet PO (08:22)
[2020-05-31] MEDS: escitalopram 10 mg Tablet PO (08:22)
--- NOTE | 2020-05-31 09:45 | PM.PN ---
Subjective Subjective: Interval history: Ms. Aguirre looks clinically stable and in fact improving currently on 2 L nasal cannula. Says that she is walking around and and feels good. Denied any new complaints. Labs showed worsening leukocytosis and blood cultures positive for strep pneumonia. Medications: Reviewed: Yes Vitals/I&O/Wt Last Vital Signs Temp 98.9 F 05/31/20 08:00 Pulse 101 H 05/31/20 08:00 Resp 18 05/31/20 08:00 BP 130/76 05/31/20 08:00 Pulse Ox 93 05/31/20 08:00 05/30/20 05/31/20 05/31/20 22:59 06:59 14:59 Intake Total 550 / 800 610 / 1410 Balance 550 / 800 610 / 1410 Weight last 48 hrs Weight 269 lb Weight 270 lb 1.6 oz Physical Exam Narrative: EXAM NARRATIVE: General: alert, NAD HEENT: conj clear, EOMI, PERRL, mmm, Neck: supple, no meningismus Heme: no cervical LAP Pulmonary: Reduced breath sounds on left side chest Cardiovascular: rrr, nl s1s2, no mrg Abdomen: soft, nt, nd, no r/g, bs+ Extremities: pulses +, no edema, no c/c : no CVA tenderness Skin: intact, no rash MSK: no back or neck pain Neurologic: grossly intact Data : 05/31/20 05:24 05/31/20 05:24 Micro: Microbiology 05/28/20 10:10 Gram Stain - Final Pleural Fluid Anaerobic Culture - Preliminary Body Fluid Culture - Preliminary 05/27/20 23:29 Gram Stain - Final Sputum - Expectorated Sputum Sputum Culture - Final 05/27/20 16:55 Blood Culture - Preliminary Blood Streptococcus pneumoniae 05/27/20 17:00 Blood Culture - Preliminary Blood Streptococcus pneumoniae 05/29/20 10:42 Blood Culture - Preliminary Blood NEGATIVE TO DATE 05/29/20 05:00 Blood Culture - Preliminary Blood NEGATIVE TO DATE CT Chest: I personally reviewed and interpreted this imaging study as follows: Radiologist's impression: 1. Progressed loculated left pleural effusion moderate in size with collapse left lower lobe and lingula. Pleural fluid is progressed from May 27, 2020. 2. Right lung remains well aerated. 3. Small pericardial effusion. 4. Gallbladder calculi. A&P Assessment and plan (1) Pleural effusion: Status: Acute (2) Community acquired pneumonia: Status: Acute Qualifiers: Laterality: left Lung location: lower lobe of lung Qualified Code(s): J18.9 - Pneumonia, unspecified organism #Community-acquired pneumonia with loculated left pleural effusion -Patient clinically much better since admission -Saturating 95% on 2 L of oxygen able to have conversations -05/27/[address] angio no evidence of PE, moderate volume multiloculated left pleural effusion, complete collapse of left lower lobe, inferior segment of lingular atelectasis -05/28/2020 thoracentesis performed on left lateral side after confirming site with ultrasound -able to drain 200 cc straw-colored with some fibrinous material in the drain -Blood cultures showing gram-positive organisms and pleural fluid with staining showed some gram-positive cocci in pairs and gram-negative organisms; -High procalcitonin suggestive of bacterial infection -De-escalate antibiotics based on susceptibility -Ideally bacterial pneumonia with simple pleural effusion can be treated with antibiotics; but this patient has loculated pleural effusions on CT chest and on 05/28/2020 attempt to drain single pocket yielded only 200 cc of fluid. -Repeat CT chest on 05/30/2020 showed worsening left-sided loculated pleural effusions and collapse of left lower lobe and lingula. IR were consulted for ultrasound-guided thoracentesis but they could not find a good pocket. -CT surgeon Dr. Amos was consulted and patient is planned for thoracotomy and and decortication and attempt to release of this trapped lung. -We will follow peripherally and do the recommendations as needed Medical condition, investigations, labs, imaging reviewed in detail and everything including plan of care explained to the patient. She verbalized understanding and agreed with the plan. Recommendations conveyed to Dr. Finney hospitalist on the case Attestations Medical Necessity Statement*: Strep pneumonia with complicated loculated left pleural effusion which is worsening and atelectasis of left lower lobe and lingula, and patient requiring thoracotomy and decortication. Time Spent in Patient Care: 16 - 35 minutes (>than 50% of time spent in counselling and/or direct pt care on unit). 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
--- NOTE | 2020-05-31 11:37 | ANES.PREANE2 ---
Pre-Anesthetic Assessment Pre-Anesthetic Assessment: Height/Weight: Height 1.7 m Weight 122.016 kg Temp Pulse Resp BP Pulse Ox 99.4 F 112 H 18 147/92 92 05/31/20 11:24 05/31/20 11:24 05/31/20 11:24 05/31/20 11:24 05/31/20 11:24 Preop Diagnosis: Empyema Proposed Procedure: Operation Date: 05/31/20 12:00 Proposed Procedures p Thoracotomy(Left) - Emery Amos MD Familial anesthetic complications: None Was Beta Chas taken within 24 hours: N/A Last intake: Intake Last Liquid Date 05/30/20 Last Liquid Time 22:00 Last Solid Date 05/30/20 Last Solid Time 22:00 Social: Social History: No alcohol and No tobacco Exam: Pre-Anes Outpt Exam: alert, oriented x 3, clear to auscultation bilaterally and regular rate & rhythm Additional Exam Findings (including area of procedure): diminished Airway: Cervical ROM: WNL MP: 2 Dentition: Full Pulmonary: Comments: Pneumonia leading to empyema CV/HEM: CV/HEM: HTN Metabolic: Metabolic: Morbid obesity Anesthetic Plan: ASA status: 3 Anesthesia: General Risk of > 500 ml blood loss (7ml/kg in children): No Meds/Allergies Current Medications: Current Medications Generic Name Dose Route Start Last Admin Trade Name Freq PRN Reason Stop Dose Admin Acetaminophen 650 mg 05/27/20 21:12 05/31/20 00:25 Tylenol PO 650 mg Q6H PRN Administration Mild/Mod Pain Or Temp >/= 101 Hydrocodone Bitart /Acetaminophen 1 tab 05/27/20 21:12 05/31/20 05:31 [place] 5-325 Mg PO 1 tab Q4H PRN Administration MODERATE TO SEVER E PAIN Amlodipine Besylat e 10 mg 05/28/20 09:00 05/31/20 08:22 Norvasc PO 10 mg DAILY MENA Administration Escitalopram Oxala te 10 mg 05/28/20 09:00 05/31/20 08:22 Lexapro PO 10 mg DAILY MENA Administration Heparin Sodium (Be ef Lung) 5,000 unit 05/28/20 13:00 05/29/20 14:58 Heparin SUBCUT 5,000 unit Q12H MENA Administration Azithromycin 500 m g/ Sodium 250 mls @ 250 mls /hr 05/28/20 18:00 05/30/20 21:47 Chloride IV Infused Q24H MENA Infusion Protocol Cefepime HCl 2,000 mg/ Sodium 50 mls @ 100 mls/ hr 05/28/20 18:00 05/31/20 08:21 Chloride IV 100 mls/hr Q12H MENA Administration Protocol Vancomycin HCl 1,0 00 mg/ 250 mls @ 250 mls /hr 05/28/20 23:00 05/31/20 06:38 Sodium Chloride IV 250 mls/hr Q8H MENA Administration Lactated Ringer's 1,000 mls @ 150 m ls/hr 05/31/20 05:45 05/31/20 06:01 Lactated Ringers IV 150 mls/hr .Q6H40M MENA Administration Lisinopril 20 mg 05/28/20 09:00 05/31/20 08:21 Prinivil PO 20 mg DAILY MENA Administration PFSH Anesthesia PFSH: Medical History (Updated 05/31/20 @ 05:52 by Emery Amos MD) Anxiety Hypertension Pneumonia Approximately 15 years ago by history Surgical History History of Family History Other CAD (coronary artery disease) Social History Smoking and tobacco status: never smoked Alcohol intake: never Substance/Drug Use: never Data Anesthesia CBC & Chem 7: 05/31/20 05:24 05/31/20 05:24 Other Labs: Laboratory Results - last 48 hr 05/29/20 05/30/20 05/30/20 22:35 04:31 04:31 WBC 28.8 H RBC 3.70 L Hgb 11.1 L Hct 35.5 L MCV 95.9 D MCH 30.0 MCHC 31.3 D RDW 13.6 Plt Count 305 MPV 12.0 H Neut % (Auto) 82.5 Lymph % (Auto) 6.8 [place] % (Auto) 6.4 Eos % (Auto) 0.9 Baso % (Auto) 0.7 Neut # (Auto) 23.72 H Lymph # (Auto) 2.0 [place] # (Auto) 1.9 H Eos # (Auto) 0.3 Baso # (Auto) 0.2 H Nucleated RBC % (auto) 0 Nucleated RBCs # 0.0 PT INR Sodium 135 L Potassium 3.6 Chloride 98 Carbon Dioxide 27 Anion Gap 13.6 BUN 10 Creatinine 0.7 GFR Calculation 86.6 L Glucose 142 H Calculated Osmolality 281 L Calcium 8.7 Vancomycin Trough 12.7 Blood Type Rho(D) Type Antibody Screen Crossmatch 05/30/20 05/30/20 05/31/20 12:29 19:50 05:24 WBC 31.0 H* RBC 3.87 L Hgb 11.6 Hct 37.2 MCV 96.1 MCH 30.0 MCHC 31.2 RDW 13.6 Plt Count 335 MPV 11.9 H Neut % (Auto) 83.7 Lymph % (Auto) 6.2 [place] % (Auto) 5.8 Eos % (Auto) 0.8 Baso % (Auto) 0.5 Neut # (Auto) 26.00 H Lymph # (Auto) 1.9 [place] # (Auto) 1.8 H Eos # (Auto) 0.3 Baso # (Auto) 0.2 H Nucleated RBC % (auto) 0 Nucleated RBCs # 0.0 PT 12.90 INR 0.95 Sodium Potassium Chloride Carbon Dioxide Anion Gap BUN Creatinine GFR Calculation Glucose Calculated Osmolality Calcium Vancomycin Trough Blood Type A Positive Rho(D) Type Positive Antibody Screen Negative Crossmatch See Detail 05/31/20 05:24 WBC RBC Hgb Hct MCV MCH MCHC RDW Plt Count MPV Neut % (Auto) Lymph % (Auto) [place] % (Auto) Eos % (Auto) Baso % (Auto) Neut # (Auto) Lymph # (Auto) [place] # (Auto) Eos # (Auto) Baso # (Auto) Nucleated RBC % (auto) Nucleated RBCs # PT INR Sodium 135 L Potassium 3.1 L Chloride 96 L Carbon Dioxide 31 H Anion Gap 11.1 BUN 8 Creatinine 0.6 GFR Calculation 103.4 Glucose 127 H Calculated Osmolality 280 L Calcium 8.5 Vancomycin Trough Blood Type Rho(D) Type Antibody Screen Crossmatch Micro: Microbiology 05/28/20 10:10 Fungal Smear - Preliminary Pleural Fluid 05/28/20 10:10 Mycobacterial Smear - Preliminary Body Fluids - Pleura,Lt Lung 05/28/20 10:10 Gram Stain - Final Pleural Fluid Anaerobic Culture - Preliminary Body Fluid Culture - Preliminary 05/27/20 23:29 Gram Stain - Final Sputum - Expectorated Sputum Sputum Culture - Final 05/27/20 16:55 Blood Culture - Preliminary Blood Streptococcus pneumoniae 05/27/20 17:00 Blood Culture - Preliminary Blood Streptococcus pneumoniae 05/29/20 10:42 Blood Culture - Preliminary Blood NEGATIVE TO DATE Cardiac Studies: No Data to Display
[2020-05-31] MEDS: sodium chloride 0.9% 1,000 ML 30 ML IV (11:42)
--- NOTE | 2020-05-31 11:43 | PC.NURSE ---
SURGERY TO FLOOR TO TAKE PATIENT TO PRE-OP. REPORT CALLED TO WON RODRIGUEZ IN ICU WHERE PATIENT WILL BE GOING AFTER PROCEDURE IS COMPLETE.
--- NOTE | 2020-05-31 12:15 | PM.PN ---
Subjective Subjective: Interval history: She denies any new complaints. Denies chest pain. Says has been trying to reposition to elevate her legs. Getting up to walk to the restroom. Vitals/I&O/Wt Last Vital Signs Temp 99.4 F 05/31/20 11:24 Pulse 112 H 05/31/20 11:24 Resp 18 05/31/20 11:24 BP 147/92 05/31/20 11:24 Pulse Ox 92 05/31/20 11:24 05/30/20 05/31/20 05/31/20 22:59 06:59 14:59 Intake Total 550 / 800 610 / 1410 Balance 550 / 800 610 / 1410 Weight last 48 hrs Weight 122.016 kg Weight 122.515 kg Physical Exam Const: COMMON NORMALS: no acute distress and patient oriented x3 HENMT: COMMON NORMALS: oropharynx normal Neck/C-Spine: COMMON NORMALS: no JVD Resp: COMMON NORMALS: normal respiratory effort AUSCULTATION: diminished lung sounds on the left in the lower lung [place] Cardio: COMMON NORMALS: no JVD, regular rhythm, S1 normal heart sound present, S2 normal heart sound present and No murmurs present (Cardio) RATE: tachycardic RHYTHM: regular rhythm HEART SOUNDS: S1 normal heart sound present and S2 normal heart sound present GI: COMMON NORMALS: Normal to inspection, nondistended, normoactive bowel sounds present, Soft to palpation and non-tender PALPATION: Yes Soft to palpation Extremity: COMMON NORMALS: no joint enlargement GENERAL: Yes edema (Trace) Neuro: COMMON NORMALS: patient oriented x3 and moves all extremities Skin: COMMON NORMALS: no rashes or lesions noted GENERAL SKIN EXAM: no rashes or lesions noted Data : 05/31/20 05:24 05/31/20 05:24 Micro: Microbiology 05/28/20 10:10 Fungal Smear - Preliminary Pleural Fluid 05/28/20 10:10 Mycobacterial Smear - Preliminary Body Fluids - Pleura,Lt Lung 05/28/20 10:10 Gram Stain - Final Pleural Fluid Anaerobic Culture - Preliminary Body Fluid Culture - Preliminary 05/27/20 23:29 Gram Stain - Final Sputum - Expectorated Sputum Sputum Culture - Final 05/27/20 16:55 Blood Culture - Preliminary Blood Streptococcus pneumoniae 05/27/20 17:00 Blood Culture - Preliminary Blood Streptococcus pneumoniae 05/29/20 10:42 Blood Culture - Preliminary Blood NEGATIVE TO DATE A&P Assessment and plan (1) Community acquired pneumonia: Discussed with her sinus tachycardia, worsening leukocytosis up to 31,000, worsening loculated pleural effusion. She has had a good discussion with thoracic surgery, and is in agreement with proceeding with thoracotomy with evacuation of complex pleural effusion and decortication/release of trapped lung. We discussed alternatives and risks and benefits. Continue Rocephin and vancomycin, azithromycin. Ongoing sepsis with leukocytosis, sinus tachycardia. Source control as above. Follow-up blood cultures. Blood with gram-positive cocci, ID and sensitivity pending. Gram stain pleural fluid with gram-positive cocci Prior fluid studies suggestive of exudative effusion. Continue oxygen as needed MRSA PCR was negative. However, will await culture of pleural fluid and blood prior to consideration of discontinuation of vancomycin as well as clinical improvement. Continue telemetry Status: Acute Qualifiers: Laterality: left Lung location: lower lobe of lung Qualified Code(s): J18.9 - Pneumonia, unspecified organism (2) Gram-positive bacteremia: Streptococcal species noted in blood on 05/27. Suspect is related to complicated pneumonia. Repeat blood culture 05/29 so far without growth. TTE with grade 1 diastolic dysfunction. Does not have signs of septic emboli. Monitor for any additional changes to suggest ongoing bacteremia, septic emboli, at which point may consider additional relation for endocarditis. Status: Acute (3) Pleural effusion: Increased effusion on repeat CT. Thoracentesis with US guidance as discussed with pulmonology, radiology and patient. VT prophylactic heparin was held yesterday. Thoracentesis was performed today yielding 200 cc. Exudative Status: Acute (4) Leukocytosis: Secondary to pneumonia. Status: Acute (5) Hyperglycemia: Hemoglobin A1c not elevated. 5.8% Status: Acute (6) Hyponatremia: Likely secondary to pulmonary process. Improved TSH normal Status: Acute Additional A&P Information Hypokalemia: Replace. Hypertension, continue home medications Anxiety continue home medications Heparin subcutaneous for DVT prophylaxis Full code Attestations Medical Necessity Statement*: Continue admission for cyst management off pneumonia complicated with parapneumonic effusion with loculations, trapped lung, sepsis. 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
[2020-05-31] MEDS: ceFAZolin 1,000 mg SDV 3000 MG IRRIGATION (13:18)
--- NOTE | 2020-05-31 16:20 | PC.NURSE ---
Pt arrives to ICU from surgery. Pt alert. peripheral IV noted bilat wrist. Art line in left wrist, good wave form noted on monitor. Bilat chest tubes,left lateral chest patent and draining no air leaks noted. Lopez patent and draining.
--- NOTE | 2020-05-31 16:23 | SUR.OPER ---
1600 - attempted to update sister of surgery progress and pt status. unable to reach her at this time.
--- NOTE | 2020-05-31 16:30 | XRR_ITS ---
PROCEDURE INFORMATION: Exam: XR Chest, 1 View Exam date and time: 05/31/2020 4:40 PM Age: 54 years old Clinical indication: Device placement; Other: Status post left thoracotomy and decortication; Prior surgery; Surgery date: Post-operative (0-2 days) TECHNIQUE: Imaging protocol: XR of the chest Views: 1 view. COMPARISON: CT chest wo con [id number] 05/30/2020 7:10 AM FINDINGS: Lungs: There is consolidation in the mid and inferior left lung. Pleural space: There is a large left pleural effusion. No pneumothorax. There are left pleural drains with the tip in the superior left hemithorax. Heart/Mediastinum: Unremarkable. No cardiomegaly. Bones/joints: Unremarkable. XR/XR chest 1V portable [id number] IMPRESSION: There is left lung consolidation and left pleural effusion. There are left pleural drains.
--- NOTE | 2020-05-31 17:00 | PM.PACU ---
PACU note Post-Anesthesia Exam: somnolent, arousable and vital signs stable Disposition: admitted
--- NOTE | 2020-05-31 17:15 | P.OP_ITS ---
Operative Report Date of procedure: May 31, 2020 Pre-op Diagnosis: Empyema Post-op diagnosis: same Procedure Done: 1. Left thoracotomy with decortication 2. Diagnostic flexible bronchoscopy Specimens removed/disposition: Empyema for culture and Gram stain Surgeon: Emery Amos Anesthesia: General Estimated blood loss (mL): 100 Complications: None Findings: Loculated effusion with thick empyema encompassing the entire left lower lobe and the lower one half and posterior aspects of the left upper lobe. Condition: stable Disposition: ICU Brief History: 54-year-old female who is been hospitalized since late last Saturday after presenting with a one-week history of increasing shortness of breath, left-sided chest pain, and low-grade fever. On questioning she is actually had left-sided chest discomfort for about 3 weeks. She was found to have consolidation and what was felt to be a loculated effusion on the left si de. She was evaluated by pulmonary medicine and underwent a left thoracentesis. She has been on 3 antibiotics. Follow-up CT scan reveals considerable consolidation and entrapment of the left lung lower lobe and some of the left upper lobe. Cardiothoracic surgery was consulted to assist with management. I recommended thoracotomy and decortication. Details the risk of the procedure were carefully and frankly discussed. A proper consents have been reviewed and signed. Anesthesia elected not to place an epidural catheter preoperatively secondary to elevated white count. Procedure: Patient was taken operating room and carefully positioned. Appropriate invasive lines were placed. Double-lumen endotracheal intubation was then performed and confirmed in position. Patient was placed in the right lateral decubitus position over axillary roll and protective padding. Entire left chest was sterilely prepped and draped. Standard posterior lateral thoracotomy incision was made carried down through subtendinous tissue down the chest wall with intercostal space was entered. As expected, loculated areas of effusion were identified along with a substantial thick peel encompassing much of the lung, particularly trapping the left lower lobe. In a systematic fashion, this empyema was removed, initially beginning superiorly and posteriorly and then extending down inferiorly into the fissure and then systematically across the entire lower lobe. There were small parenchymal tears, but these appear to be limited. Empyema was then removed from much of the parietal pleura as well. The diaphragm appeared to be spared. Once completed, the entire hemithorax irrigated with large amounts of antibiotic laden solution. Bovie cautery and clips were utilized as required to control bleeding points. Once completed, an anterior and posterior tube directed over the diaphragm were then placed. Sponge and needle count were then confirmed to be correct. Chest wall was then reapproximated with interrupted #1 Vicryl suture. Fascia was closed in 2 layers of 0 Vicryl suture. Subtends layer were closed with 2-0 Vicryl suture. Skin was reapproximated in a subcuticular manner with 3-0 Monocryl suture. Sterile dressings were applied. Patient was then returned to the supine position where the double-lumen endotracheal tube was removed and replaced with a single-lumen tube. I then performed diagnostic flexible bronchoscopy clearing all secretions. No endobronchial lesions were identified. Bronchoscope was removed. Patient was awakened from anesthesia and extubated. They were then transferred to the ICU bed and then taken to ICU for continued recovery. Family was counseled at completion of the procedure. We will continue with antibiotic therapy and aggressive pulmonary toilet. Chest x- ray reveals appropriate lung reexpansion. There is, as expected some haziness laterally and inferiorly with a lung was trapped. Though described in the report, I do not think there is any substantial remaining pleural effusion, with mostly radiographic changes related to parenchymal contusion and atelectasis.
[2020-05-31] MEDS: ketorolac 30 mg/mL INJ IVP (18:09)
--- NOTE | 2020-05-31 18:15 | PC.NURSE ---
Art line discontinued as ordered. Cath tip intact. Pressure held until hemostasis obtained. Pt tolerated well.
[2020-05-31] MEDS: azithromycin 500 MG in sodium chloride 0.9% 250 ML 250 MG IV (18:22)
[2020-05-31] MEDS: oxyCODONE-APAP 10-325 mg Tablet PO (18:59)
--- NOTE | 2020-05-31 19:28 | PC.NURSE ---
Shift summary: Pt arrived to ICU at 1620, chest tubes patent. Pt has c/o of pain, Toradol then Oxycodone admin. Art line removed. Pt using IS. Pt coughing frequently. Incision dressing C,D,I.
[2020-06-01] VITALS (53 sets, daily range): BP systolic 73–131; BP diastolic 53–79; PULSE 78–96; RESP 6–25; TEMP 36.4–37.2; O2SAT 90–98
[2020-06-01] MEDS: lactated ringers 1,000 ML 150 ML IV ×4 (00:49→21:53)
[2020-06-01] MEDS: heparin 5,000 unit/mL INJ 1 mL 5000 UNIT SUBCUT ×2 (01:13→12:33)
[2020-06-01] MEDS: ketorolac 30 mg/mL INJ IVP ×3 (01:24→20:30)
--- NOTE | 2020-06-01 03:00 | ANE.PACU2 ---
Inpatient post-anesthesia follow up: Airway intact: Yes Vital signs: Temperature 98.9 F Pulse Rate [Left R adial] 124 Pulse Rate 83 Respiratory Rate 19 Blood Pressure [Le ft Arm] 169/110 Blood Pressure 87/61 Pulse Oximetry 97 Oxygen Delivery Me thod [ Nasal Cannula Current Rate & Del dmitriy] Oxygen Delivery Me thod Nasal Cannula Oxygen Flow Rate [ Current Rate 4 & Delivery] Oxygen Flow Rate 4 Fraction of Inspir ed Oxygen Hydration adequate: Yes Nausea and vomiting: No Pain level: 1 Mental status: Baseline Additional Comments: Patient doing very well. Sitting up in bed, watching TV, no current pain
[2020-06-01] MEDS: oxyCODONE-APAP 10-325 mg Tablet PO ×3 (04:17→11:29)
[2020-06-01 06:00] LABS: Basophils # 0.2 10^3/uL (0.0-0.1); Basophils % 0.5 %; Eosinophils # 0.1 10^3/uL (0.0-0.8); Eosinophils % 0.4 %; Hematocrit 35.2 % (37.0-47.0); Hemoglobin 10.4 g/dL (11.5-15.3); Lymphocytes # 2.1 10^3/uL (0.8-4.8); Lymphocytes % 7.1 %; Mean Corpuscular HGB Conc 29.5 g/dL (30.0-36.0); Mean Corpuscular Hemoglobin 29.6 pg (28.0-34.0); Mean Corpuscular Volume 100.3 fL (81-99); Monocytes # 1.3 10^3/uL (0.2-0.9); Monocytes % 4.3 %; Neutrophils # 24.82 10^3/uL (1.8-7.7); Neutrophils % 83.8 %; Nucleated Red Blood Cells % 0 %; Platelet Count 356 10^3/cmm (130-400); Red Blood Count 3.51 10^6/uL (4.1-5.3); Red Cell Distribution Width 14.1 % (12.1-15.1); White Blood Count 29.6 10^3/uL (4.0-10.0)
--- NOTE | 2020-06-01 06:00 | XR_ITS ---
WS: [id number] XR chest 1V portable [id number] REASON FOR EXAM: POD #1 status post left thoracotomy and decortication FINDINGS: Left chest tube remains in place extending superiorly from the left lower chest tube near the left kinza ng apex where the tube tracks medially. The left lung is fully inflated. There is extensive consolida tion in the left lung which may have resolved in part compared to the previous examination. There is significant elevation of the left hemidiaphragm and there appears to be very marked gastric distention. There is a lucency projected over the left lower mid lung which appears to have a straight inferior b order. This could represent a small air-fluid level in the left pleural space. XR/XR chest 1V portable [id number] IMPRESSION: Status post left thoracotomy with chest tube placement. There appears to be very significant gastric distention which may require a asya ogastric tube placement. Possible small air-fluid level in the left pleural space as above.
--- NOTE | 2020-06-01 06:02 | P.PN_ITS ---
Subjective Subjective: Interval history: Subjective 1 status post left thoracotomy with decortication. Awake and alert. Thoracotomy discomfort appears to be under reasonable control. Chest tube output 500 cc since surgery. Pulling about 750 cc on incentive spirometry. There is still some consolidation on chest x-ray laterally and inferiorly and I suspect this will take some time to clear as this was the most intensely involved area. Overall, she looks good. Unfortunately, this morning's lab is still pending. No air leak noted on Pleur-evac. Vitals/I&O/Wt Last Vital Signs Temp 98.9 F 06/01/20 01:00 Pulse 83 06/01/20 04:15 Resp 19 H 06/01/20 04:17 BP 87/61 06/01/20 04:15 Pulse Ox 97 06/01/20 04:17 05/31/20 05/31/20 06/01/20 14:59 22:59 06:59 Intake Total 1300 / 1300 3928.5 / 5228.5 1250 / 6478.5 Output Total 790 / 790 295 / 1085 Balance 1300 / 1300 3138.5 / 4438.5 955 / 5393.5 Weight last 48 hrs Weight 269 lb Physical Exam Chest: COMMONS NORMALS: normal inspection of the chest (Surgical dressings are dry. Chest tubes in good position.) Resp: COMMON NORMALS: No use of accessory muscles; negative for clear to auscultation bilaterally EFFORT & INSPECTION: Yes able to speak in complete sentences, Yes symmetric chest movement and No tachypneic AUSCULTATION: not clear to auscultation bilaterally and diminished lung sounds on the left in the lower lung [place] OTHER: Good inspiratory effort. Decreased breath sounds laterally and posteriorly on the left Urinary Catheter Management^: Lopez: Cath Placed During This Visit: yes Reason for Continuing Indwelling Catheter: Accurate Measurement of Urinary Output in Critically Ill Patients Urinary Catheter Date of Insertion: 05/31/20 Urinary Catheter Time of Insertion: 13:00 Data : 05/31/20 05:24 05/31/20 05:24 Micro: Microbiology 05/28/20 10:10 Gram Stain - Final Pleural Fluid Anaerobic Culture - Preliminary Body Fluid Culture - Final Streptococcus pneumoniae 05/28/20 10:10 Fungal Smear - Preliminary Pleural Fluid 05/28/20 10:10 Mycobacterial Smear - Preliminary Body Fluids - Pleura,Lt Lung A&P Assessment and plan (1) Empyema lung: POD #1 status post left thoracotomy decortication Plan: Will plan to transfer to [facility]. DC Lopez catheter. Continue aggressive p ulmonary toilet. Chest x-ray in a.m. A.m. lab. Status: Acute Attestations Medical Necessity Statement*: POD #1 status post left thoracotomy and decortication for intense empyema Time Spent in Patient Care: 16 - 35 minutes Coding Level of Care Code Acute Industrial Controller for Amador Jones Diagnoses Empyema lung J86.9
--- NOTE | 2020-06-01 06:02 | PC.NURSE ---
Shift Summary: Patient had a few incidences of increased pain levels originating in posterior chest and upper part of back. Toradol IVP and Oxycodone PO given to decrease pain levels. Pt up to chair twice throughout shift, each for two hours in total. Tolerated well. Dressing remains c/d/i. Amos at bedside for rounding at 0600. Plan is to transfer up to [facility] floor today, with continued movement and up to chair being advised and ordered. Titration of O2 down throughout nightshift. Pt currently remains at 2L NC with current SPO2 @ 95% 300 total u/o 140 output from Left Pleural Chest Tube Drain (300 total) 130 output from Left Lateral Chest Tube [place] Drain (180 total) 150mL/hr LR running.
--- NOTE | 2020-06-01 06:46 | PC.NURSE ---
Lopez Catheter Removed 9mL out from balloon.
[2020-06-01 06:52] LABS: Anion Gap 15.3 (5-19); Blood Urea Nitrogen 15 mg/dL (6-20); Calcium 7.5 mg/dL (8.5-10.5); Carbon Dioxide 25 mmol/L (22-29); Chloride 100 mmol/L (98-107); Glomerular Filtration Rate 57.4 mL/min (90-130); Glucose 178 mg/dL (65-115); Osmolality Calculated 289 mOsm/kg (285-295); Potassium 3.3 mmol/L (3.5-5.1); Sodium 137 mmol/L (136-145)
[2020-06-01] MEDS: cefepime 2,000 MG in sodium chloride 0.9% (plus) 50 ML 100 MG IV ×2 (07:50→21:53)
--- NOTE | 2020-06-01 08:01 | PC.NURSE ---
recd. a&o. iv pulled out accidentally. 2nd stick to get 20 ga. to left forearm. good blood return. vanc. trough drawn from this site.
[2020-06-01] MEDS: escitalopram 10 mg Tablet PO (08:34)
[2020-06-01] MEDS: pantoprazole DR 40 mg Tablet PO (08:34)
[2020-06-01] MEDS: TRAMadol 50 mg Tablet 100 MG PO ×3 (08:39→21:54)
--- NOTE | 2020-06-01 08:42 | PM.PN ---
Subjective Subjective: Interval history: Reports that today she is feeling much better. Pain is under control. Vitals/I&O/Wt Last Vital Signs Temp 98.9 F 06/01/20 01:00 Pulse 91 06/01/20 08:00 Resp 16 06/01/20 08:00 BP 131/76 06/01/20 07:15 Pulse Ox 91 06/01/20 08:00 05/31/20 06/01/20 06/01/20 22:59 06:59 14:59 Intake Total 3928.5 / 5228.5 2152.5 / 7381.0 530 / 530 Output Total 790 / 790 295 / 1085 Balance 3138.5 / 4438.5 1857.5 / 6296.0 530 / 530 Weight last 48 hrs Weight 121.843 kg Weight 122.016 kg Physical Exam Const: COMMON NORMALS: no acute distress and patient oriented x3 OTHER: Awake, alert, comfortable with 2 L nasal cannula oxygen. HENMT: COMMON NORMALS: oropharynx normal Neck/C-Spine: COMMON NORMALS: no JVD Resp: COMMON NORMALS: normal respiratory effort AUSCULTATION: diminished lung sounds on the left in the lower lung [place] Cardio: COMMON NORMALS: no JVD, regular rhythm, S1 normal heart sound present, S2 normal heart sound present and No murmurs present (Cardio) RHYTHM: regular rhythm HEART SOUNDS: S1 normal heart sound present and S2 normal heart sound present GI: COMMON NORMALS: Normal to inspection, nondistended, normoactive bowel sounds present, Soft to palpation and non-tender PALPATION: Yes Soft to palpation Extremity: COMMON NORMALS: no joint enlargement GENERAL: Yes edema (Trace) Neuro: COMMON NORMALS: patient oriented x3 and moves all extremities Skin: COMMON NORMALS: no rashes or lesions noted GENERAL SKIN EXAM: no rashes or lesions noted Urinary Catheter Management^: Lopez: Cath Placed During This Visit: yes, but has since been removed by the nurse Reason for Continuing Indwelling Catheter: Decision to DC Catheter Urinary Catheter Date of Insertion: 05/31/20 Urinary Catheter Time of Insertion: 13:00 Date Urinary Catheter Removed: 06/01/20 Time Urinary Catheter Discontinued: 06:45 Data : 06/01/20 05:20 06/01/20 05:20 Micro: Microbiology 05/28/20 10:10 Gram Stain - Final Pleural Fluid Anaerobic Culture - Preliminary Body Fluid Culture - Final Streptococcus pneumoniae 05/28/20 10:10 Fungal Smear - Preliminary Pleural Fluid 05/28/20 10:10 Mycobacterial Smear - Preliminary Body Fluids - Pleura,Lt Lung A&P Assessment and plan (1) Community acquired pneumonia: Status post left thoracotomy with decortication for complicated pneumonia with loculated parapneumonic effusion, trapped lung. There is doing much better. Tachycardia resolved. Leukocytosis is better. Subjectively feeling much better. Fluid from initial thoracentesis growing strep pneumo which is the same bacteria as in her blood. Discussed with her. At this time continues on cefepime, vancomycin. DC azithromycin. Follow-up culture from tissue sample obtained during thoracotomy. Appreciate thoracic surgery and pulmonology consultation. Follow-up repeat blood cultures. Status: Acute Qualifiers: Laterality: left Lung location: lower lobe of lung Qualified Code(s): J18.9 - Pneumonia, unspecified organism (2) Gram-positive bacteremia: Invasive pneumococcal infection with pneumonia, complicated by loculated parapneumonic effusion, bacteremia. Follow repeat blood cultures. Cefepime, vancomycin. TTE with grade 1 diastolic dysfunction. Does not have signs of septic emboli. Status: Acute (3) Pleural effusion: As above. Initial thoracentesis was yielding 200 cc. Repeat ultrasound guided thoracentesis was planned, but canceled due to extensive loculations. Subsequently underwent thoracotomy with decortication on 05/31. Status: Acute (4) Leukocytosis: Secondary to pneumonia. Status: Acute (5) Hyperglycemia: Hemoglobin A1c not elevated. 5.8% Status: Acute (6) Hyponatremia: Likely secondary to pulmonary process. Improved TSH normal Status: Acute Additional A&P Information Hypokalemia: Replace. Hypertension, continue home medications Anxiety continue home medications Heparin subcutaneous for DVT prophylaxis has been held perioperatively. At this time continue SCD. Full code Attestations Medical Necessity Statement*: Continue admission for assessment management of invasive pneumococcal infection, complicated pneumonia, status post thoracotomy and decortication. Coding Level of Care Code Acute Nurse Staff Industrial for Chg Fwd Diagnoses Community acquired pneumonia J18.9 Laterality: left Lung location: lower lobe of lung Gram-positive bacteremia R78.81 Pleural effusion J90 Leukocytosis D72.829 Hyperglycemia R73.9 Hyponatremia E87.1
[2020-06-01 09:07] LABS: Vancomycin Trough 14.4 ug/mL (10-15)
--- NOTE | 2020-06-01 09:25 | PC.NURSE ---
waiting on vanc trough.
[2020-06-01] MEDS: vancomycin 1,000 MG in sodium chloride 0.9% 250 ML 250 MG IV ×2 (09:50→17:03)
--- NOTE | 2020-06-01 18:47 | PC.NURSE ---
SHIFT SUMMARY PATIENT HAS DONE WELL SINCE ARRIVING TO THE FLOOR. PATIENT ON ROOM AIR. IV FLUIDS AND ANTIBIOTICS RUNNING. PATIENT VOIDED 400ML AFTER MARTINS REMOVAL. PAIN WELL CONTROLLED. SURGICAL DRESSINGS C/D/I. PATIENT HAD 50ML OUT OF LATERAL CHEST TUBE AND 150ML OUT OF THE OTHER. PATIENT HAS BEEN UP IN CHAIR MAJORITY OF THE DAY AND WALKED TO AND FROM THE BATHROOM. CURRENTLY SITTING IN CHAIR WATCHING TV. NO COMPLAINTS AT THIS TIME.
[2020-06-02] VITALS (10 sets, daily range): BP systolic 94–134; BP diastolic 62–81; PULSE 80–96; RESP 12–18; TEMP 35.9–36.9; O2SAT 89–99
[2020-06-02] MEDS: heparin 5,000 unit/mL INJ 1 mL 5000 UNIT SUBCUT ×2 (01:56→12:37)
[2020-06-02] MEDS: TRAMadol 50 mg Tablet 100 MG PO ×2 (01:56→06:41)
[2020-06-02 02:37] LABS: Basophils # 0.1 10^3/uL (0.0-0.1); Basophils % 0.6 %; Eosinophils # 0.6 10^3/uL (0.0-0.8); Eosinophils % 2.9 %; Hematocrit 34.7 % (37.0-47.0); Hemoglobin 10.3 g/dL (11.5-15.3); Lymphocytes # 2.6 10^3/uL (0.8-4.8); Lymphocytes % 13.5 %; Mean Corpuscular HGB Conc 29.7 g/dL (30.0-36.0); Mean Corpuscular Hemoglobin 29.9 pg (28.0-34.0); Mean Corpuscular Volume 100.6 fL (81-99); Mean Platelet Volume 11.9 fL (7.4-10.4); Monocytes # 1.1 10^3/uL (0.2-0.9); Monocytes % 5.8 %; Neutrophils # 14.31 10^3/uL (1.8-7.7); Neutrophils % 73.6 %; Nucleated Red Blood Cells % 0 %; Platelet Count 366 10^3/cmm (130-400); Red Blood Count 3.45 10^6/uL (4.1-5.3); Red Cell Distribution Width 14.2 % (12.1-15.1); White Blood Count 19.4 10^3/uL (4.0-10.0)
[2020-06-02 02:47] LABS: Alanine Aminotransferase 22 U/L (0-33); Alkaline Phosphatase 109 IU/L (35-105); Anion Gap 14.2 (5-19); Aspartate Amino Transferase 69 U/L (0-32); Blood Urea Nitrogen 19 mg/dL (6-20); Calcium 7.7 mg/dL (8.5-10.5); Carbon Dioxide 25 mmol/L (22-29); Chloride 96 mmol/L (98-107); Globulin 4.3 g/dL (1.3-4.6); Glomerular Filtration Rate 31.1 mL/min (90-130); Glucose 114 mg/dL (65-115); Osmolality Calculated 277 mOsm/kg (285-295); Potassium 3.2 mmol/L (3.5-5.1); Sodium 132 mmol/L (136-145); Total Bilirubin 0.3 mg/dL (0.15-1.2); Total Protein 6.3 g/dL (6.6-8.7)
[2020-06-02] MEDS: ketorolac 30 mg/mL INJ IVP ×2 (02:58→19:35)
--- NOTE | 2020-06-02 04:39 | PC.NURSE ---
Hat was placed for patient in toilet and urine missed the hat.
--- NOTE | 2020-06-02 05:24 | PM.PN ---
Subjective Subjective: Interval history: POD #2 status post left thoracotomy decortication. Chest tube output around 200 cc past 24 hours which is about one half of the prior 24 hours. White count has substantially decreased down to 19,000. Afebrile. Vital signs stable. O2 saturation 93% on 2 L nasal cannula. She is able to pull about 1000 cc on incentive spirometry. No air leak on Pleur-evac suction. Morning's chest x-ray reveals continued slow clearing of the infiltrative process in the left lower lateral aspect of the hemithorax. Modestly improved aeration. Vitals/I&O/Wt Last Vital Signs Temp 97.9 F 06/02/20 04:00 Pulse 86 06/02/20 04:00 Resp 12 06/02/20 04:00 BP 99/63 06/02/20 04:00 Pulse Ox 93 06/02/20 04:00 06/01/20 06/01/20 06/02/20 14:59 22:59 06:59 Intake Total 1630 / 1630 1295 / 2925 360 / 3285 Output Total 650 / 650 Balance 1630 / 1630 645 / 2275 360 / 2635 Weight last 48 hrs Weight 268 lb 9.9 oz Weight 269 lb Physical Exam Narrative: EXAM NARRATIVE: Ms. Humphrey is been cooperating very well with pulmonary toilet. She is been up in the chair frequently. Pulling just over thousand cc on incentive spirometer though still needs some work. She has a good and clearing effective cough. Chest: OTHER: Surgical dressings remain clean and dry. Chest tubes are in good position. Chest x-but steady clearing of this intense process, particularly in the left lateral and inferior hemithorax. I do suspect this will take some time for resolution. Resp: COMMON NORMALS: normal respiratory effort, No retractions and No use of accessory muscles AUSCULTATION: diminished lung sounds on the left in the lower lung [place] OTHER: Proved breath sounds though still decreased in the left mid and lower lung [place]. Urinary Catheter Management^: Lopez: Cath Placed During This Visit: yes, but has since been removed by the nurse Reason for Continuing Indwelling Catheter: Decision to DC Catheter Urinary Catheter Date of Insertion: 05/31/20 Urinary Catheter Time of Insertion: 13:00 Date Urinary Catheter Removed: 06/01/20 Time Urinary Catheter Discontinued: 06:45 Data : 06/02/20 02:15 06/02/20 02:15 Micro: Microbiology 05/28/20 10:10 Gram Stain - Final Pleural Fluid Anaerobic Culture - Preliminary Body Fluid Culture - Final Streptococcus pneumoniae 05/27/20 16:55 Blood Culture - Final Blood Streptococcus pneumoniae 05/27/20 17:00 Blood Culture - Final Blood Streptococcus pneumoniae 05/31/20 15:21 Gram Stain - Final Other Source A&P Assessment and plan (1) Empyema lun. Status post left thoracotomy and decortication. I will place chest tube to [facility] continue pulmonary toilet and repeat chest x-ray in the a.m. If output remains low, I will plan to discontinue 1 of the chest tubes tomorrow. We will have surgical dressings changed today. Status: Acute Attestations Medical Necessity Statement*: Status post left thoracotomy and decortication for an intense empyema Time Spent in Patient Care: 16 - 35 minutes Coding Level of Care Code Acute Accounting Manager Controller for Amador Jones Exam Problem Focused Diagnoses Empyema lung J86.9
[2020-06-02] MEDS: lactated ringers 1,000 ML 150 ML IV ×2 (05:31→16:21)
[2020-06-02] MEDS: vancomycin 1,000 MG in sodium chloride 0.9% 250 ML 250 MG IV (05:31)
--- NOTE | 2020-06-02 06:00 | XR_ITS ---
WS: [id number] XR chest 1V portable [id number] REASON FOR EXAM: pod#2 s/p left thoracotomy and decortication FINDINGS: Compared to the prior day's examination, the chest tubes remain in position in the left thorax. Infil trative changes in the left lung have undergone some degree of resolution however moderate abnormalit y persists. Left lung appears fully inflated. The lucency and possible air-fluid level in the left pleural space is not identified on this examinat ion. Stomach is moderately distended but not as severely distended as on the prior day. Left hemidiap hragm remains elevated. Right lung field remains clear. XR/XR chest 1V portable [id number] IMPRESSION: Abnormal chest with interval change as above.
[2020-06-02] MEDS: pantoprazole DR 40 mg Tablet PO (08:08)
[2020-06-02] MEDS: escitalopram 10 mg Tablet PO (08:08)
[2020-06-02] MEDS: oxyCODONE-APAP 10-325 mg Tablet PO ×3 (08:21→21:58)
[2020-06-02] MEDS: penicillin g potassium 5,000,000 UNIT in sodium chloride 0.9% (100 ml) 100 ML 100 UNIT IV ×2 (16:20→22:01)
--- NOTE | 2020-06-02 18:54 | PC.NURSE ---
SHIFT SUMMARY Patient has done well this shift, she has ambulated 3 times with this nurse. Chest tube drainage was 50mL for anterior and posterior was also 50mL, serosangenous in color. Patient has been on room air all day, minimal shortness of breath noted on exertion. urine output was totaled at around 800mL for this shift, dark yellow in color, clear. Dressings to Left lateral back and chest tube sites are clean, dry and intact. Patient's pain has been well controlled with oral pain medications. Resting in the chair at this time, no complaints. call light within reach.
--- NOTE | 2020-06-02 21:26 | PM.PN ---
Subjective Subjective: Interval history: She is feeling well. Not short of breath. No chest pain. Is happy that Pleur-evac could be disconnected from vacuum. Vitals/I&O/Wt Last Vital Signs Temp 98.2 F 06/02/20 19:41 Pulse 92 06/02/20 19:41 Resp 18 06/02/20 19:41 BP 110/69 06/02/20 19:41 Pulse Ox 92 06/02/20 19:41 06/02/20 06/02/20 06/02/20 06:59 14:59 22:59 Intake Total 1672.5 / 5097.5 480 / 480 0 / 480 Output Total 300 / 950 500 / 500 250 / 750 Balance 1372.5 / 4147.5 -20 / -20 -250 / -270 Weight last 48 hrs Weight 121.563 kg Weight 121.843 kg Physical Exam Const: COMMON NORMALS: no acute distress and patient oriented x3 OTHER: Awake, alert, feels she is making good progress. HENMT: COMMON NORMALS: oropharynx normal Neck/C-Spine: COMMON NORMALS: no JVD Resp: COMMON NORMALS: normal respiratory effort AUSCULTATION: diminished lung sounds on the left in the lower lung [place] Cardio: COMMON NORMALS: no JVD, regular rhythm, S1 normal heart sound present, S2 normal heart sound present and No murmurs present (Cardio) RATE: tachycardic RHYTHM: regular rhythm HEART SOUNDS: S1 normal heart sound present and S2 normal heart sound present GI: COMMON NORMALS: Normal to inspection, nondistended, normoactive bowel sounds present, Soft to palpation and non-tender PALPATION: Yes Soft to palpation Extremity: COMMON NORMALS: no joint enlargement GENERAL: Yes edema (Trace) Neuro: COMMON NORMALS: patient oriented x3 and moves all extremities Skin: COMMON NORMALS: no rashes or lesions noted GENERAL SKIN EXAM: no rashes or lesions noted Urinary Catheter Management^: Lopez: Cath Placed During This Visit: yes, but has since been removed by the nurse Reason for Continuing Indwelling Catheter: Decision to DC Catheter Urinary Catheter Date of Insertion: 05/31/20 Urinary Catheter Time of Insertion: 13:00 Date Urinary Catheter Removed: 06/01/20 Time Urinary Catheter Discontinued: 06:45 Data : 06/02/20 02:15 06/02/20 02:15 Micro: Microbiology 05/28/20 10:10 Gram Stain - Final Pleural Fluid Anaerobic Culture - Preliminary Body Fluid Culture - Final Streptococcus pneumoniae 05/31/20 15:21 Gram Stain - Final Other Source Tissue Culture - Preliminary 05/28/20 10:10 Fungal Smear - Preliminary Pleural Fluid A&P Assessment and plan (1) Community acquired pneumonia: Improving. Chest tube output is decreasing. Changed to waterseal. Sepsis resolving. She is subjectively improving. Pneumococcus growing in culture. Switch antibiotic to penicillin. Discussed with pulmonology. Status post left thoracotomy with decortication for complicated pneumonia with loculated parapneumonic effusion, trapped lung. Lung empyema. Doing much better. Improved tachycardia. Leukocytosis improving. Follow-up culture from tissue sample obtained during thoracotomy. Appreciate thoracic surgery and pulmonology consultation. Follow-up repeat blood cultures. Status: Acute Qualifiers: Laterality: left Lung location: lower lobe of lung Qualified Code(s): J18.9 - Pneumonia, unspecified organism (2) Gram-positive bacteremia: Invasive pneumococcal infection with pneumonia, complicated by loculated parapneumonic effusion, bacteremia. Follow repeat blood cultures. Change to penicillin TTE with grade 1 diastolic dysfunction. Does not have signs of septic emboli. Status: Acute (3) Pleural effusion: As above. Initial thoracentesis was yielding 200 cc. Repeat ultrasound guided thoracentesis was planned, but canceled due to extensive loculations. Subsequently underwent thoracotomy with decortication on 05/31. Status: Acute (4) Leukocytosis: Secondary to pneumonia. Status: Acute (5) Hyperglycemia: Hemoglobin A1c not elevated. 5.8% Status: Acute (6) Hyponatremia: Likely secondary to pulmonary process. Improved TSH normal Status: Acute Additional A&P Information Hypokalemia: Replace. Hypertension, continue home medications Anxiety continue home medications Heparin subcutaneous for DVT prophylaxis has been held perioperatively. At this time continue SCD. Full code Attestations Medical Necessity Statement*: Continue admission for assessment management of complicated pneumonia, improving sepsis, bacteremia, lung empyema secondary to invasive pneumococcus infection. Coding Level of Care Code Acute Alternative Energy Technician for g Fwd Diagnoses Community acquired pneumonia J18.9 Laterality: left Lung location: lower lobe of lung Gram-positive bacteremia R78.81 Pleural effusion J90 Leukocytosis D72.829 Hyperglycemia R73.9 Hyponatremia E87.1
[2020-06-03] VITALS (7 sets, daily range): BP systolic 113–126; BP diastolic 73–79; PULSE 86–97; RESP 15–20; TEMP 36.5–36.9; O2SAT 90–97
[2020-06-03] MEDS: heparin 5,000 unit/mL INJ 1 mL 5000 UNIT SUBCUT ×2 (00:25→13:39)
[2020-06-03] MEDS: lactated ringers 1,000 ML 150 ML IV ×3 (00:25→19:56)
[2020-06-03] MEDS: penicillin g potassium 5,000,000 UNIT in sodium chloride 0.9% (100 ml) 100 ML 100 UNIT IV (04:54)
[2020-06-03 05:38] LABS: Basophils # 0.1 10^3/uL (0.0-0.1); Basophils % 0.6 %; Eosinophils # 0.5 10^3/uL (0.0-0.8); Hematocrit 31.8 % (37.0-47.0); Hemoglobin 9.6 g/dL (11.5-15.3); Lymphocytes % 15.3 %; Mean Corpuscular HGB Conc 30.2 g/dL (30.0-36.0); Mean Corpuscular Hemoglobin 30.4 pg (28.0-34.0); Mean Corpuscular Volume 100.6 fL (81-99); Mean Platelet Volume 12.1 fL (7.4-10.4); Monocytes # 0.8 10^3/uL (0.2-0.9); Monocytes % 6.4 %; Neutrophils # 9.22 10^3/uL (1.8-7.7); Neutrophils % 70.5 %; Nucleated Red Blood Cells % 0 %; Platelet Count 330 10^3/cmm (130-400); Red Blood Count 3.16 10^6/uL (4.1-5.3); White Blood Count 13.1 10^3/uL (4.0-10.0)
--- NOTE | 2020-06-03 06:00 | XR_ITS ---
WS: [id number] Portable AP upright chest, 06/03/2020 Clinical Data: Postop day #3 status post left thoracotomy with decortication; chest tube to waterseal Comparison: Portable chest, 06/02/2020 Findings: The 2 left chest tubes, one medial and one lateral remain in same position. There is volume loss of the left lung with elevation of the left diaphragm. The patchy opacity of the left lung has not changed. The right lung remains clear. Monitor leads are on the chest wall. XR/XR chest 1V portable [id number] Impression: 1. No change in 2 left chest tubes and opacification of the left lung. 2. No change in heart and right lung.
--- NOTE | 2020-06-03 07:54 | P.PN_ITS ---
Subjective Subjective: Interval history: Postop day #3 status post left thoracotomy with decortication. Up in chair on rounds. Continues to look quite good. White count continues to decrease, now at 13,000. Still only pulling about 750 up to 1000 cc maximum on incentive spirometry. Good effective cough. This morning's chest x-ray continues to reveal pleural thickening particularly laterally and inferiorly consistent with the area of maximal involvement of the empyema. I do not see chemistries from this morning as we follow the creatinine which did bump up to 1.7 yesterday. S2 output 190 cc past 24 hours. The fluid appears to be mostly serous and relatively clear. Vitals/I&O/Wt Last Vital Signs Temp 98.4 F 06/03/20 04:00 Pulse 86 06/03/20 04:00 Resp 20 H 06/03/20 04:00 BP 113/73 06/03/20 04:00 Pulse Ox 95 06/03/20 04:00 06/02/20 06/03/20 06/03/20 22:59 06:59 14:59 Intake Total 0 / 480 2020 / 2500 Output Total 250 / 750 95 / 845 Balance -250 / -270 1925 / 1655 Weight last 48 hrs Weight 307 lb 3 oz Weight 268 lb Physical Exam Chest: COMMONS NORMALS: normal inspection of the chest (Chest wall is stable. Incision line is clean and dry. Chest tubes in good position.) Resp: COMMON NORMALS: normal respiratory effort, No retractions and No use of accessory muscles EFFORT & INSPECTION: Yes able to speak in complete sentences and Yes symmetric chest movement AUSCULTATION: diminished lung sounds on the left in the lower lung [place] Cardio: COMMON NORMALS: regular rate, regular rhythm and S1 normal heart sound present RATE: regular rate RHYTHM: regular rhythm HEART SOUNDS: S1 normal heart sound present, no murmurs and no rubs Extremity: COMMON NORMALS: no clubbing, cyanosis or edema Urinary Catheter Management^: Lopez: Cath Placed During This Visit: yes, but has since been removed by the nurse Reason for Continuing Indwelling Catheter: Decision to DC Catheter Urinary Catheter Date of Insertion: 05/31/20 Urinary Catheter Time of Insertion: 13:00 Date Urinary Catheter Removed: 06/01/20 Time Urinary Catheter Discontinued: 06:45 Data : 06/03/20 04:39 10/08/20 02:15 Micro: Microbiology 05/29/20 05:00 Blood Culture - Final Blood NO GROWTH AFTER 5 DAYS 05/28/20 10:10 Gram Stain - Final Pleural Fluid Anaerobic Culture - Preliminary Body Fluid Culture - Final Streptococcus pneumoniae 05/31/20 15:21 Gram Stain - Final Other Source Tissue Culture - Preliminary 05/28/20 10:10 Fungal Smear - Preliminary Pleural Fluid A&P Assessment and plan (1) Empyema lung: Postop day #3 status post left thoracotomy with decortication due to intense empyema. Clinically improving. Plan: I will plan to remove chest tubes later this morning. She still needs aggressive pulmonary toilet. Status: Acute Attestations Medical Necessity Statement*: Status post thoracotomy with decortication due to empyema Time Spent in Patient Care: 16 - 35 minutes Coding Level of Care Code Acute Popped Corn Oven Attendant for Amador Jones Diagnoses Empyema lung J86.9
[2020-06-03 08:12] LABS: Alanine Aminotransferase 23 U/L (0-33); Albumin Level 2.3 g/dL (3.5-5.2); Alkaline Phosphatase 110 IU/L (35-105); Blood Urea Nitrogen 18 mg/dL (6-20); Calcium 8.1 mg/dL (8.5-10.5); Carbon Dioxide 25 mmol/L (22-29); Chloride 96 mmol/L (98-107); Globulin 4.1 g/dL (1.3-4.6); Glomerular Filtration Rate 27.3 mL/min (90-130); Glucose 122 mg/dL (65-115); Osmolality Calculated 273 mOsm/kg (285-295); Sodium 130 mmol/L (136-145); Total Bilirubin 0.4 mg/dL (0.15-1.2); Total Protein 6.4 g/dL (6.6-8.7)
[2020-06-03] MEDS: TRAMadol 50 mg Tablet 100 MG PO ×2 (08:21→18:22)
[2020-06-03] MEDS: escitalopram 10 mg Tablet PO (08:21)
[2020-06-03] MEDS: pantoprazole DR 40 mg Tablet PO (08:21)
[2020-06-03 08:25] LABS: Anion Gap 12.4 (5-19); Aspartate Amino Transferase 51 U/L (0-32); Potassium 3.4 mmol/L (3.5-5.1)
[2020-06-03] MEDS: penicillin g potassium 5,000,000 UNIT in sodium chloride 0.9% (plus) 100 ML 100 UNIT IV ×2 (10:51→18:11)
--- NOTE | 2020-06-03 13:28 | PM.PN ---
Subjective Subjective: Interval history: Postop day #3 status post left thoracotomy with decortication. Up in chair on rounds. Continues to look quite good. Improving leukocytosis today 13 K. Still only pulling about 750 up to 1000 cc maximum on incentive spirometry. Good effective cough.This morning's chest x-ray continues to reveal pleural thickening particularly laterally and inferiorly consistent with the area of maximal involvement of the empyema. S2 output 190 cc past 24 hours. The fluid appears to be mostly serous and relatively clear. Medications: Reviewed: Yes Vitals/I&O/Wt Last Vital Signs Temp 98.3 F 06/03/20 11:29 Pulse 97 06/03/20 11:29 Resp 16 06/03/20 11:29 BP 120/77 06/03/20 11:29 Pulse Ox 90 06/03/20 11:29 06/02/20 06/03/20 06/03/20 22:59 06:59 14:59 Intake Total 0 / 480 2020 / 2500 1420 / 1420 Output Total 250 / 750 95 / 845 450 / 450 Balance -250 / -270 1925 / 1655 970 / 970 Weight last 48 hrs Weight 307 lb 3 oz Weight 268 lb Physical Exam Narrative: EXAM NARRATIVE: General: alert, NAD HEENT: conj clear, EOMI, PERRL, mmm, Neck: supple, no meningismus Heme: no cervical LAP Pulmonary: Improved breath sounds on left side chest tube taken out today Cardiovascular: rrr, nl s1s2, no mrg Abdomen: soft, nt, nd, no r/g, bs+ Extremities: pulses +, no edema, no c/c : no CVA tenderness Skin: intact, no rash MSK: no back or neck pain Neurologic: grossly intact Urinary Catheter Management^: Lopez: Cath Placed During This Visit: yes, but has since been removed by the nurse Reason for Continuing Indwelling Catheter: Decision to DC Catheter Urinary Catheter Date of Insertion: 05/31/20 Urinary Catheter Time of Insertion: 13:00 Date Urinary Catheter Removed: 06/01/20 Time Urinary Catheter Discontinued: 06:45 Data : 06/03/20 04:39 06/03/20 07:48 Micro: Microbiology 05/31/20 15:21 Gram Stain - Final Other Source Tissue Culture - Preliminary 05/29/20 10:42 Blood Culture - Final Blood NO GROWTH AFTER 5 DAYS 05/29/20 05:00 Blood Culture - Final Blood NO GROWTH AFTER 5 DAYS 05/28/20 10:10 Gram Stain - Final Pleural Fluid Anaerobic Culture - Preliminary Body Fluid Culture - Final Streptococcus pneumoniae 05/28/20 10:10 Fungal Smear - Preliminary Pleural Fluid Other data: Reviewed labs, imaging all investigations in the system A&P Assessment and plan (1) Pleural effusion: Status: Acute (2) Community acquired pneumonia: Status: Acute Qualifiers: Laterality: left Lung location: lower lobe of lung Qualified Code(s): J18.9 - Pneumonia, unspecified organism #Strep community-acquired pneumonia with loculated left pleural effusion and bacteremia #Postop day #3 status post left thoracotomy with decortication. -Patient clinically improving, out of bed to chair and able to conversations -05/27/[address] angio no evidence of PE, moderate volume multiloculated left pleural effusion, complete collapse of left lower lobe, inferior segment of lingular atelectasis -05/28/2020 thoracentesis performed on left lateral side after confirming site with ultrasound -able to drain 200 cc straw-colored with some fibrinous material in the drain -Repeat CT chest on 05/30/2020 showed worsening left-sided loculated pleural effusions and collapse of left lower lobe and lingula. IR were consulted for ultrasound-guided thoracentesis but they could not find a good pocket. -S/p left thoracotomy and decortication by on 05/31/2020 -Pleural fluid cultures and blood cultures grew pansensitive strep pneumonia -Currently on penicillin IV -responding well and clinically improving -Chest tubes from thoracotomy removed today -Would recommend to continue IV Rocephin for total of 4 weeks -Repeat CT chest in 2 weeks to see for resolution of left effusion -we will follow-up in pulmonary clinic once the patient is discharged Medical condition, investigations, labs, imaging reviewed in detail and everything including plan of care explained to the patient. She verbalized understanding and agreed with the plan. Recommendations conveyed to Dr. macias hospitalist on the case Attestations Medical Necessity Statement*: Complicated parapneumonic effusion from strep community-acquired pneumonia and bacteremia requiring IV antibiotics Coding Level of Care Code Established Pt Acute Toggle Press Folder And Feeder for Chg Fwd Patient Type Established History Comprehensive Exam Comprehensive Medical Decision Making Moderate Complexity Diagnoses Pleural effusion J90 Community acquired pneumonia J18.9 Laterality: left Lung location: lower lobe of lung Time Spent (min) 30
--- NOTE | 2020-06-03 19:15 | P.PN_ITS ---
Subjective Subjective: Interval history: She says she is doing well. She is having some intermittent cough, but otherwise denies significant pain. Is not short of breath. Chest tube is taken out. Vitals/I&O/Wt Last Vital Signs Temp 98.2 F 06/03/20 15:58 Pulse 92 06/03/20 15:58 Resp 15 06/03/20 15:58 BP 126/79 06/03/20 15:58 Pulse Ox 95 06/03/20 15:58 06/03/20 06/03/20 06/03/20 06:59 14:59 22:59 Intake Total 2020 / 2500 1520 / 1520 Output Total 95 / 845 750 / 750 Balance 1925 / 1655 770 / 770 Weight last 48 hrs Weight 139.338 kg Weight 121.563 kg Physical Exam Const: COMMON NORMALS: no acute distress and patient oriented x3 OTHER: Awake, alert, feels she is making good progress. HENMT: COMMON NORMALS: oropharynx normal Neck/C-Spine: COMMON NORMALS: no JVD Resp: COMMON NORMALS: normal respiratory effort AUSCULTATION: diminished lung sounds on the left (Slightly diminished air entry in the left base) in the lower lung [place] Cardio: COMMON NORMALS: no JVD, regular rhythm, S1 normal heart sound present, S2 normal heart sound present and No murmurs present (Cardio) RATE: tachyca rdic RHYTHM: regular rhythm HEART SOUNDS: S1 normal heart sound present and S2 normal heart sound present GI: COMMON NORMALS: Normal to inspection, nondistended, normoactive bowel sounds present, Soft to palpation and non-tender PALPATION: Yes Soft to palpation Extremity: COMMON NORMALS: no joint enlargement GENERAL: Yes edema (Trace) Neuro: COMMON NORMALS: patient oriented x3 and moves all extremities Skin: COMMON NORMALS: no rashes or lesions noted GENERAL SKIN EXAM: no rashes or lesions noted Urinary Catheter Management^: Lopez: Cath Placed During This Visit: yes, but has since been removed by the nurse Reason for Continuing Indwelling Catheter: Decision to DC Catheter Urinary Catheter Date of Insertion: 05/31/20 Urinary Catheter Time of Insertion: 13:00 Date Urinary Catheter Removed: 06/01/20 Time Urinary Catheter Discontinued: 06:45 Data : 06/03/20 04:39 06/03/20 07:48 Micro: Microbiology 05/28/20 10:10 Gram Stain - Final Pleural Fluid Anaerobic Culture - Preliminary Body Fluid Culture - Final Streptococcus pneumoniae 05/31/20 15:21 Gram Stain - Final Other Source Tissue Culture - Preliminary 05/29/20 10:42 Blood Culture - Final Blood NO GROWTH AFTER 5 DAYS 05/29/20 05:00 Blood Culture - Final Blood NO GROWTH AFTER 5 DAYS A&P Assessment and plan (1) Community acquired pneumonia: Output from chest tube improved. Clinically she has been improving. Chest tube removed today. Sepsis resolving. She is subjectively improving. Pneumococcus growing in culture. Switch antibiotic to penicillin. Discussed with pulmonology. Given invasive pneumonia, complicated with empyema, as well as bacteremia, discussed also with her we will arrange for additional 3 weeks of IV antibiotic infusions at home with Rocephin 2 g every 24 hours. PICC line. Status post left thoracotomy with decortication for complicated pneumonia with loculated parapneumonic effusion, trapped lung. Lung empyema. Doing much b imani. Improved tachycardia. Leukocytosis improving. Follow-up culture from tissue sample obtained during thoracotomy. Appreciate thoracic surgery and pulmonology consultation. Follow-up repeat blood cultures. Status: Acute Qualifiers: Laterality: left Lung location: lower lobe of lung Qualified Code(s): J18.9 - Pneumonia, unspecified organism (2) CLARISSE (acute kidney injury): Creatinine up to 1.9. Discontinue NSAIDs. Continue some IV hydration. Reassess renal function, BOBY. Check UA, renal ultrasound. Status: Acute (3) Gram-positive bacteremia: Invasive pneumococcal infection with pneumonia, complicated by loculated parapneumonic effusion, bacteremia. Follow repeat blood cultures. Continue antibiotic. Will arrange for additional 3 weeks of IV Rocephin. TTE with grade 1 diastolic dysfunction. Does not have signs of septic emboli. Status: Acute (4) Pleural effusion: As above. Initial thoracentesis was yielding 200 cc. Repeat ultrasound guided thoracentesis was planned, but canceled due to extensive loculations. Subsequently underwent thoracotomy with evacuation of empyema, decortication on 05/31. Chest tube removed 06/03. Status: Acute (5) Leukocytosis: Improving. Secondary to pneumonia. Status: Acute (6) Hyperglycemia: Hemoglobin A1c not elevated. 5.8% Status: Acute (7) Hyponatremia: Likely secondary to pulmonary process. Improved TSH normal Status: Acute Additional A&P Information Hypokalemia: Replace. Hypertension, continue home medications Anxiety continue home medications Heparin subcutaneous for DVT prophylaxis has been held perioperatively. At this time continue SCD. Full code Attestations Medical Necessity Statement*: Continue admission for assessment and management of complicated pneumonia, invasive pneumococcal infection, bacteremia, empyema. Disposition arrangements. Coding Level of Care Code Acute [place] Man for [facility] Fwd Diagnoses Community acquired pneumonia J18.9 Laterality: left Lung location: lower lobe of lung CLARISSE (acute kidney injury) N17.9 Gram-positive bacteremia R78.81 Pleural effusion J90 Leukocytosis D72.829 Hyperglycemia R73.9 Hyponatremia E87.1
[2020-06-03] MEDS: oxyCODONE-APAP 10-325 mg Tablet PO (19:55)
[2020-06-03] MEDS: docusate sodium 100 mg Capsule PO (20:05)
[2020-06-03 21:05] LABS: Bilirubin Urine Neg (Negative); Blood Urine Trace (Negative); Glucose Urine UA Norm (Normal); Ketones Urine Negative (Negative); Leukocyte Esterase Urine Negative (Negative); Nitrate Urine Negative (Negative); Protein Urine Neg (Negative); Urine Appearance Clear (CLEAR); Urine Color Yellow (Yellow); Urobilinogen Urine Norm (Negative); pH Urine 5 (5-7)
[2020-06-03 21:06] LABS: Add Urine Microscopic? YES
[2020-06-03 21:07] LABS: Add Urine Culture? No; Amorphous Sediment Urine TRACE /hpf; Bacteria Urine 1+ /hpf; RBC Urine 0-4 /hpf (0-2); Squamous Epithelial Cell Urine 0-4 /hpf (0-5); WBC Urine 0-4 /hpf (0-5)
[2020-06-04] VITALS (12 sets, daily range): BP systolic 135–155; BP diastolic 78–88; PULSE 80–103; RESP 16–24; TEMP 36.6–37.1; O2SAT 87–97
[2020-06-04] MEDS: penicillin g potassium 5,000,000 UNIT in sodium chloride 0.9% (plus) 100 ML 100 UNIT IV ×2 (01:38→05:42)
[2020-06-04] MEDS: heparin 5,000 unit/mL INJ 1 mL 5000 UNIT SUBCUT ×2 (01:40→12:32)
[2020-06-04] MEDS: lactated ringers 1,000 ML 150 ML IV ×3 (05:11→21:48)
[2020-06-04 05:34] LABS: Basophils # 0.1 10^3/uL (0.0-0.1); Basophils % 0.8 %; Eosinophils # 0.2 10^3/uL (0.0-0.8); Eosinophils % 1.6 %; Hematocrit 32.8 % (37.0-47.0); Hemoglobin 9.8 g/dL (11.5-15.3); Lymphocytes # 1.4 10^3/uL (0.8-4.8); Lymphocytes % 9.8 %; Mean Corpuscular HGB Conc 29.9 g/dL (30.0-36.0); Mean Corpuscular Hemoglobin 29.3 pg (28.0-34.0); Mean Corpuscular Volume 98.2 fL (81-99); Mean Platelet Volume 11.2 fL (7.4-10.4); Monocytes # 0.9 10^3/uL (0.2-0.9); Monocytes % 6.5 %; Neutrophils # 10.86 10^3/uL (1.8-7.7); Neutrophils % 77.7 %; Nucleated Red Blood Cells % 0 %; Platelet Count 432 10^3/cmm (130-400); Red Blood Count 3.34 10^6/uL (4.1-5.3); Red Cell Distribution Width 13.5 % (12.1-15.1)
[2020-06-04] MEDS: oxyCODONE-APAP 10-325 mg Tablet PO ×4 (05:41→21:48)
[2020-06-04] MEDS: bisacodyl 5 mg Tablet PO (05:42)
[2020-06-04 06:06] LABS: Alanine Aminotransferase 20 U/L (0-33); Albumin Level 2.2 g/dL (3.5-5.2); Alkaline Phosphatase 109 IU/L (35-105); Aspartate Amino Transferase 40 U/L (0-32); Blood Urea Nitrogen 14 mg/dL (6-20); Calcium 8.5 mg/dL (8.5-10.5); Carbon Dioxide 25 mmol/L (22-29); Chloride 100 mmol/L (98-107); Globulin 4.5 g/dL (1.3-4.6); Glomerular Filtration Rate 33.3 mL/min (90-130); Glucose 155 mg/dL (65-115); Osmolality Calculated 284 mOsm/kg (285-295); Sodium 135 mmol/L (136-145); Total Bilirubin 0.4 mg/dL (0.15-1.2); Total Protein 6.7 g/dL (6.6-8.7)
[2020-06-04 06:16] LABS: Anion Gap 13.5 (5-19); Potassium 3.5 mmol/L (3.5-5.1)
[2020-06-04] MEDS: pantoprazole DR 40 mg Tablet PO (08:45)
[2020-06-04] MEDS: escitalopram 10 mg Tablet PO (08:45)
--- NOTE | 2020-06-04 10:42 | PM.PN ---
Subjective Subjective: Interval history: 4 days status post left thoracotomy with decortication for pneumococcal pneumonia with empyema. Chest tubes were removed yesterday. She is up in chair on rounds. Function improving with antibiotic adjustment, creatinine now 1.6 Vitals/I&O/Wt Last Vital Signs Temp 98.5 F 06/04/20 08:00 Pulse 100 06/04/20 08:00 Resp 20 H 06/04/20 08:00 BP 135/81 06/04/20 08:00 Pulse Ox 95 06/04/20 08:00 06/03/20 06/04/20 06/04/20 22:59 06:59 14:59 Intake Total 1100 / 2620 1100 / 3720 480 / 480 Output Total 200 / 950 400 / 400 Balance 1100 / 1870 900 / 2770 80 / 80 Weight last 48 hrs Weight 305 lb 9.6 oz Weight 307 lb 3 oz Physical Exam Chest: COMMONS NORMALS: normal inspection of the chest (Thoracotomy incision clean and dry. Chest tube sites are clean and well approximated.) Resp: COMMON NORMALS: normal respiratory effort, No retractions, No use of accessory muscles and clear to auscultation bilaterally AUSCULTATION: clear to auscultation bilaterally and diminished lung sounds on the left in the lower lung [place] Urinary Catheter Management^: Lopez: Cath Placed During This Visit: yes, but has since been removed by the nurse Reason for Continuing Indwelling Catheter: Decision to DC Catheter Urinary Catheter Date of Insertion: 05/31/20 Urinary Catheter Time of Insertion: 13:00 Date Urinary Catheter Removed: 06/01/20 Time Urinary Catheter Discontinued: 06:45 Data : 06/04/20 05:16 06/04/20 05:16 Micro: Microbiology 05/28/20 10:10 Gram Stain - Final Pleural Fluid Anaerobic Culture - Preliminary Body Fluid Culture - Final Streptococcus pneumoniae 05/31/20 15:21 Gram Stain - Final Other Source Tissue Culture - Preliminary 05/29/20 10:42 Blood Culture - Final Blood NO GROWTH AFTER 5 DAYS 05/29/20 05:00 Blood Culture - Final Blood NO GROWTH AFTER 5 DAYS A&P Assessment and plan (1) Empyema lung: I have conferred with my colleague Dr. Francis from our hospitalist service. After conferencing with Dr. Marmolejo from pulmonary medicine, 3 weeks of outpatient IV antibiotics are recommended with plans for Rocephin daily. We will order a Betasept shower today and may continue daily. After discharge, she may follow-up in my clinic in 1 week with a chest x-ray. I greatly appreciate the expertise of Dr. Lauren and his hospital colleagues as well as Dr. Marmolejo and our pulmonary service. 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
[2020-06-04] MEDS: chlorhexidine gluconate 4% Btl 118 mL 1 APPLIC TOPICAL (12:27)
[2020-06-04] MEDS: cefTRIAXone 2,000 MG in sodium chloride 0.9% (plus) 50 ML 100 MG IV (13:30)
--- NOTE | 2020-06-04 16:47 | P.PN_ITS ---
Subjective Subjective: Interval history: She is doing well. Earlier was having a little bit more difficult time breathing, oxygen was increased to 4 L, but is appears to be improved with incentive spirometry, flutter valve. Denies chest pain. Denies any dizziness, presyncope. Vitals/I&O/Wt Last Vital Signs Temp 97.9 F 06/04/20 16:00 Pulse 98 06/04/20 16:00 Resp 18 06/04/20 16:00 BP 155/88 06/04/20 16:00 Pulse Ox 92 06/04/20 16:00 06/04/20 06/04/20 06/04/20 06:59 14:59 22:59 Intake Total 1100 / 3720 1700 / 1700 Output Total 200 / 950 400 / 400 Balance 900 / 2770 1300 / 1300 Weight last 48 hrs Weight 138.618 kg Weight 139.338 kg Physical Exam Const: COMMON NORMALS: no acute distress and patient oriented x3 NUTRITIONAL APPEARANCE: obese OTHER: Awake, alert, in good spirits. Sitting up in chair. HENMT: COMMON NORMALS: oropharynx normal Neck/C-Spine: COMMON NORMALS: no JVD Resp: COMMON NORMALS: normal respiratory effort AUSCULTATION: diminished lung sounds on the left (Slightly diminished air entry in the left base) in the lower lung [place] Cardio: COMMON NORMALS: no JVD, regular rhythm, S1 normal heart sound present, S2 normal heart sound present and No murmurs present (Cardio) RATE: tachycardic RHYTHM: regular rhythm HEART SOUNDS: S1 normal heart sound present and S2 normal heart sound present GI: COMMON NORMALS: Normal to inspection, nondistended, normoactive bowel sounds present, Soft to palpation and non-tender PALPATION: Yes Soft to palpation Extremity: COMMON NORMALS: no joint enlargement GENERAL: Yes edema (Trace) Neuro: COMMON NORMALS: patient oriented x3 and moves all extremities Skin: COMMON NORMALS: no rashes or lesions noted GENERAL SKIN EXAM: no rashes or lesions noted Urinary Catheter Management^: Lopez: Cath Placed During This Visit: yes, but has since been removed by the nurse Reason for Continuing Indwelling Catheter: Decision to DC Catheter Urinary Catheter Date of Insertion: 05/31/20 Urinary Catheter Time of Insertion: 13:00 Date Urinary Catheter Removed: 06/01/20 Time Urinary Catheter Discontinued: 06:45 Data : 06/04/20 05:16 06/04/20 05:16 Micro: Microbiology 05/28/20 10:10 Gram Stain - Final Pleural Fluid Anaerobic Culture - Final Body Fluid Culture - Final Streptococcus pneumoniae 05/31/20 15:21 Gram Stain - Final Other Source Tissue Culture - Final A&P Assessment and plan (1) Community acquired pneumonia: Subjectively she is doing well. Working with I-S, flutter valve. Chest tube removed today 06/03. WBC count up little bit to 14 today. Discussed with her we are arranging for outpatient IV antibiotics. She states preference to come to infusion center to get her infusion daily. PICC line requested. Change antibiotic to Rocephin 2 g once daily. Total duration 4 weeks. Follow-up CT scan 2 weeks after discharge. Follow-up with pulmonology. Sepsis resolving. Pneumococcus growing in culture. Status post left thoracotomy with decortication for complicated pneumonia with loculated parapneumonic effusion, trapped lung. Lung empyema. Doing much better. Improved tachycardia. Leukocytosis improving. Follow-up culture from tissue sample obtained during thoracotomy showing no growth. Appreciate thoracic surgery and pulmonology consultation. Follow-up repeat blood cultures. Status: Acute Qualifiers: Laterality: left Lung location: lower lobe of lung Qualified Code(s): J18.9 - Pneumonia, unspecified organism (2) CLARISSE (acute kidney injury): Creatinine better today. DC IV fluids as she is gotten a little bit more short of breath, with some decrease in saturation. Some lower extremity edema. Monitor renal function. Avoid any additional NSAIDs. Reassess renal function, BOBY. Trace amorphous sediment and UA, renal ultrasound unremarkable. Status: Acute (3) Gram-positive bacteremia: Invasive pneumococcal infection with pneumonia, complicated by loculated parapneumonic effusion, bacteremia. Follow repeat blood cultures. Continue antibiotic. Will arrange for additional 3 weeks of IV Rocephin. TTE with grade 1 diastolic dysfunction. Does not have signs of septic emboli. Status: Acute (4) Pleural effusion: As above. Head parapneumonic complex effusion. Initial thoracentesis was yielding 200 cc growing pneumococcus. Repeat ultrasound guided thoracentesis was planned, but canceled due to extensive loculations. Subsequently underwent thoracotomy with evacuation of empyema, decortication on 05/31. Chest tube re moved 06/03. Status: Acute (5) Leukocytosis: Improving. Secondary to pneumonia. Status: Acute (6) Hyperglycemia: Hemoglobin A1c not elevated. 5.8% Status: Acute (7) Hyponatremia: Likely secondary to pulmonary process. Improved TSH normal Status: Acute Additional A&P Information Hypokalemia: Replaced. Hypertension, continue home medications Anxiety continue home medications Heparin subcutaneous for DVT prophylaxis has been held perioperatively. At this time continue SCD. Full code Attestations 2 Medical Necessity Statement*: Continue admission for assessment of management of invasive pneumococcal infection, improving sepsis, acute kidney injury, discharge planning. 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
--- NOTE | 2020-06-04 19:23 | USR_ITS ---
PROCEDURE INFORMATION: Exam: US Retroperitoneal; Complete; Kidneys and Bladder Exam date and time: 06/04/2020 9:14 AM Age: 54 years old Clinical indication: Abnormal findings; Abnormal lab test; Abnormal kidney function lab tests; Additional info: Amari TECHNIQUE: Imaging protocol: Real-time ultrasound of the retroperitoneum with image documentation. Complete exam focused on the kidneys and bladder. COMPARISON: No relevant prior studies available. FINDINGS: Right kidney: Normal. No stones. No hydronephrosis. Left kidney: Normal. No stones. No hydronephrosis. Aorta: The aorta was obscured by bowel gas. Bladder: Unremarkable. US/US renal BI with bladder IMPRESSION: Unremarkable kidneys and bladder.
[2020-06-05] VITALS (11 sets, daily range): BP systolic 138–173; BP diastolic 80–101; PULSE 78–93; RESP 16–20; TEMP 36.4–37.2; O2SAT 92–96
[2020-06-05] MEDS: TRAMadol 50 mg Tablet 100 MG PO (01:08)
[2020-06-05] MEDS: heparin 5,000 unit/mL INJ 1 mL 5000 UNIT SUBCUT ×2 (03:08→12:49)
[2020-06-05 05:50] LABS: Basophils # 0.1 10^3/uL (0.0-0.1); Basophils % 0.6 %; Eosinophils # 0.2 10^3/uL (0.0-0.8); Eosinophils % 1.6 %; Hematocrit 30.4 % (37.0-47.0); Lymphocytes # 1.5 10^3/uL (0.8-4.8); Lymphocytes % 10.6 %; Mean Corpuscular HGB Conc 29.6 g/dL (30.0-36.0); Mean Corpuscular Hemoglobin 29.1 pg (28.0-34.0); Mean Corpuscular Volume 98.4 fL (81-99); Mean Platelet Volume 11.5 fL (7.4-10.4); Monocytes # 1.2 10^3/uL (0.2-0.9); Monocytes % 8.3 %; Neutrophils # 10.66 10^3/uL (1.8-7.7); Neutrophils % 76.6 %; Nucleated Red Blood Cells % 0 %; Platelet Count 454 10^3/cmm (130-400); Red Blood Count 3.09 10^6/uL (4.1-5.3); Red Cell Distribution Width 13.6 % (12.1-15.1); White Blood Count 13.9 10^3/uL (4.0-10.0)
[2020-06-05 06:04] LABS: Alanine Aminotransferase 17 U/L (0-33); Albumin Level 2.1 g/dL (3.5-5.2); Alkaline Phosphatase 81 IU/L (35-105); Blood Urea Nitrogen 11 mg/dL (6-20); Calcium 8.1 mg/dL (8.5-10.5); Carbon Dioxide 29 mmol/L (22-29); Chloride 99 mmol/L (98-107); Globulin 3.9 g/dL (1.3-4.6); Glomerular Filtration Rate 42.4 mL/min (90-130); Glucose 153 mg/dL (65-115); Osmolality Calculated 284 mOsm/kg (285-295); Sodium 136 mmol/L (136-145); Total Bilirubin 0.2 mg/dL (0.15-1.2)
[2020-06-05 06:08] LABS: Anion Gap 11.6 (5-19); Aspartate Amino Transferase 33 U/L (0-32); Potassium 3.6 mmol/L (3.5-5.1)
[2020-06-05] MEDS: oxyCODONE-APAP 10-325 mg Tablet PO ×4 (08:04→21:28)
[2020-06-05] MEDS: pantoprazole DR 40 mg Tablet PO (08:05)
[2020-06-05] MEDS: escitalopram 10 mg Tablet PO (08:06)
[2020-06-05] MEDS: chlorhexidine gluconate 4% Btl 118 mL 1 APPLIC TOPICAL (09:08)
[2020-06-05] MEDS: cefTRIAXone 2,000 MG in sodium chloride 0.9% (plus) 50 ML 100 MG IV (12:43)
[2020-06-05] MEDS: lactated ringers 1,000 ML 150 ML IV (18:06)
--- NOTE | 2020-06-05 21:25 | PM.PN ---
Subjective Subjective: Interval history: Reports she is doing quite well. Denies chest pain. Breathing is comfortable. Vitals/I&O/Wt Last Vital Signs Temp 97.6 F 06/05/20 20:00 Pulse 93 06/05/20 20:00 Resp 18 06/05/20 20:00 BP 169/94 06/05/20 20:00 Pulse Ox 95 06/05/20 20:00 06/05/20 06/05/20 06/05/20 06:59 14:59 22:59 Intake Total 1700 / 4687 680 / 680 Output Total 1200 / 1600 300 / 300 300 / 600 Balance 500 / 3087 380 / 380 -300 / 80 Weight last 48 hrs Weight 139.752 kg Weight 138.618 kg Physical Exam Const: COMMON NORMALS: no acute distress and patient oriented x3 NUTRITIONAL APPEARANCE: obese OTHER: Awake, alert, in good spirits. Sitting up at the side of the bed. HENMT: COMMON NORMALS: oropharynx normal Neck/C-Spine: COMMON NORMALS: no JVD Resp: COMMON NORMALS: normal respiratory effort AUSCULTATION: rales on the left at the base and diminished lung sounds on the left (Slightly diminished air entry in the left base) in the lower lung [place] Cardio: COMMON NORMALS: no JVD, regular rhythm, S1 normal heart sound present, S2 normal heart sound present and No murmurs present (Cardio) RATE: tachycardic RHYTHM: regular rhythm HEART SOUNDS: S1 normal heart sound present and S2 normal heart sound present GI: COMMON NORMALS: Normal to inspection, nondistended, normoactive bowel sounds present, Soft to palpation and non-tender PALPATION: Yes Soft to palpation Extremity: COMMON NORMALS: no joint enlargement GENERAL: Yes edema (Trace) Neuro: COMMON NORMALS: patient oriented x3 and moves all extremities Skin: COMMON NORMALS: no rashes or lesions noted GENERAL SKIN EXAM: no rashes or lesions noted Urinary Catheter Management^: Lopez: Cath Placed During This Visit: yes, but has since been removed by the nurse Reason for Continuing Indwelling Catheter: Decision to DC Catheter Urinary Catheter Date of Insertion: 05/31/20 Urinary Catheter Time of Insertion: 13:00 Date Urinary Catheter Removed: 06/01/20 Time Urinary Catheter Discontinued: 06:45 Data : 06/05/20 05:13 10/11/20 05:13 A&P Assessment and plan (1) Community acquired pneumonia: Few crackles noted in left lower lung. Will reassess chest x-ray. Subjectively has been improved. Working with I-S, flutter valve. Chest tube removed today 06/03. WBC count up little bit to 14 today. Discussed with her we are arranging for outpatient IV antibiotics. She states preference to come to infusion center to get her infusion daily. PICC line requested. Should be available on Saturday. Change antibiotic to Rocephin 2 g once daily. Total duration 4 weeks. Follow-up CT scan 2 weeks after discharge. Follow-up with pulmonology. Sepsis resolving. Pneumococcus growing in culture. Status post left thoracotomy with decortication for complicated pneumonia with loculated parapneumonic effusion, trapped lung. Lung empyema. Doing much better. Improved tachycardia. Leukocytosis improving. Follow-up culture from tissue sample obtained during thoracotomy showing no growth. Appreciate thoracic surgery and pulmonology consultation. Follow-up repeat blood cultures. Status: Acute Qualifiers: Laterality: left Lung location: lower lobe of lung Qualified Code(s): J18.9 - Pneumonia, unspecified organism (2) CLARISSE (acute kidney injury): Creatinine better today. Avoid any additional NSAIDs. Reassess renal function, BOBY. Trace amorphous sediment and UA, renal ultrasound unremarkable. Status: Acute (3) Gram-positive bacteremia: Invasive pneumococcal infection with pneumonia, complicated by loculated parapneumonic effusion, bacteremia. Follow repeat blood cultures. Continue antibiotic. Will arrange for additional 3 weeks of IV Rocephin. TTE with grade 1 diastolic dysfunction. Does not have signs of septic emboli. Status: Acute (4) Pleural effusion: As above. Head parapneumonic complex effusion. Initial thoracentesis was yielding 200 cc growing pneumococcus. Repeat ultrasound guided thoracentesis was planned, but canceled due to extensive loculations. Subsequently underwent thoracotomy with evacuation of empyema, decortication on 05/31. Chest tube removed 06/03. Status: Acute (5) Leukocytosis: Improving. Secondary to pneumonia. Status: Acute (6) Hyperglycemia: Hemoglobin A1c not elevated. 5.8% Status: Acute (7) Hyponatremia: Likely secondary to pulmonary process. Improved TSH normal Status: Acute Additional A&P Information Hypokalemia: Replaced. Hypertension, continue home medications Anxiety continue home medications Heparin subcutaneous for DVT prophylaxis has been held perioperatively. At this time continue SCD. Full code Attestations Medical Necessity Statement*: Continue admission for assessment management of complicated pneumonia status post evacuation of empyema, gram-positive bacteremia, discharge preparations. Coding Level of Care Code Acute Secret Code Expert for g Fwd Diagnoses Community acquired pneumonia J18.9 Laterality: left Lung location: lower lobe of lung CLARISSE (acute kidney injury) N17.9 Gram-positive bacteremia R78.81 Pleural effusion J90 Leukocytosis D72.829 Hyperglycemia R73.9 Hyponatremia E87.1
[2020-06-06] VITALS (9 sets, daily range): BP systolic 133–220; BP diastolic 82–120; PULSE 67–116; RESP 16–20; TEMP 36.7–36.9; O2SAT 90–98
[2020-06-06] MEDS: labetalol 5 mg/mL SDV 20mL 10 MG IVP ×2 (00:23→01:49)
[2020-06-06] MEDS: heparin 5,000 unit/mL INJ 1 mL 5000 UNIT SUBCUT ×2 (01:05→14:26)
[2020-06-06 05:16] LABS: Basophils # 0.1 10^3/uL (0.0-0.1); Basophils % 0.7 %; Eosinophils # 0.2 10^3/uL (0.0-0.8); Eosinophils % 1.4 %; Hematocrit 31.4 % (37.0-47.0); Hemoglobin 9.5 g/dL (11.5-15.3); Lymphocytes # 1.3 10^3/uL (0.8-4.8); Lymphocytes % 9.4 %; Mean Corpuscular HGB Conc 30.3 g/dL (30.0-36.0); Mean Corpuscular Volume 99.1 fL (81-99); Mean Platelet Volume 11.5 fL (7.4-10.4); Monocytes # 1.1 10^3/uL (0.2-0.9); Monocytes % 7.7 %; Neutrophils % 78.9 %; Nucleated Red Blood Cells % 0 %; Platelet Count 502 10^3/cmm (130-400); Red Blood Count 3.17 10^6/uL (4.1-5.3); Red Cell Distribution Width 13.6 % (12.1-15.1); White Blood Count 14.2 10^3/uL (4.0-10.0)
[2020-06-06] MEDS: oxyCODONE-APAP 10-325 mg Tablet PO ×2 (05:28→13:06)
[2020-06-06 05:36] LABS: Alanine Aminotransferase 17 U/L (0-33); Albumin Level 2.3 g/dL (3.5-5.2); Alkaline Phosphatase 83 IU/L (35-105); Blood Urea Nitrogen 10 mg/dL (6-20); Calcium 8.1 mg/dL (8.5-10.5); Carbon Dioxide 29 mmol/L (22-29); Chloride 100 mmol/L (98-107); Globulin 4.1 g/dL (1.3-4.6); Glomerular Filtration Rate 46.5 mL/min (90-130); Glucose 135 mg/dL (65-115); Osmolality Calculated 289 mOsm/kg (285-295); Sodium 139 mmol/L (136-145); Total Bilirubin 0.2 mg/dL (0.15-1.2); Total Protein 6.4 g/dL (6.6-8.7)
[2020-06-06 05:40] LABS: Anion Gap 13.9 (5-19); Aspartate Amino Transferase 33 U/L (0-32); Potassium 3.9 mmol/L (3.5-5.1)
--- NOTE | 2020-06-06 06:00 | XR_ITS ---
WS: [id number] PORTABLE CHEST HISTORY: Hypoxia COMPARISON: 06/03/2020 Dense consolidation throughout a majority of the LEFT thorax. Probably combination of pneumonia, pleu ral fluid and atelectasis. Increased consolidation at the RIGHT costophrenic angle. No pleural effusion or pneumothorax. Cardiac size: Normal. Mediastinum/Aorta: Mild atherosclerosis aorta. No osseous abnormality seen. XR/XR chest 1V portable [id number] IMPRESSION: 1. Dense consolidation throughout 50% of the LEFT lung. Most likely pneumonia with areas of atelectasis. Small effusion is not excluded. 2. Minimal pneumonitis or atelectasis at the RIGHT costophrenic angle.
--- NOTE | 2020-06-06 06:09 | PC.NURSE ---
Patient had a period of rebound HTN due to being off of home anti-HTN meds. This period had bp of 220/120. The patient's bp was brought down by Labetalol 10 mg x2. Patient was awake for most of the night, switching from the chair to the bed, towards the end of shift, the patient was finally able to sleep.
[2020-06-06] MEDS: amlodipine 10 mg Tablet PO (10:11)
[2020-06-06] MEDS: escitalopram 10 mg Tablet PO (10:11)
[2020-06-06] MEDS: pantoprazole DR 40 mg Tablet PO (10:11)
[2020-06-06] MEDS: chlorhexidine gluconate 4% Btl 118 mL 1 APPLIC TOPICAL (10:11)
--- NOTE | 2020-06-06 13:08 | PC.NURSE ---
patient taken to get PICC line placed.
--- NOTE | 2020-06-06 13:23 | XR_ITS ---
WS: [id number] PORTABLE CHEST HISTORY: Post PICC placement COMPARISON: 06/06/2020 Interval placement right-sided PICC line. Distal PICC line is within the RIGHT heart. Increasing consolidation over a large portion of the LEFT lung. Complete obscuration of the LEFT kendall diaphragm. Mild pulmonary venous congestion. No pleural effusion or pneumothorax. Cardiac size: Mildly enlarged cardiac silhouette. Mediastinum/Aorta: Mild atherosclerosis aorta. No osseous abnormality seen. XR/XR chest 1V portable [id number] IMPRESSION: 1. Recommend retracting PICC line 3 to 4 cm for more optimal positioning. 2. Dense consolidation over a large portion of the LEFT lung consistent with p neumonia, fluid and/or atelectasis.
[2020-06-06] MEDS: cefTRIAXone 2,000 MG in sodium chloride 0.9% (plus) 50 ML 100 MG IV (14:25)
--- NOTE | 2020-06-06 17:02 | P.PN_ITS ---
Subjective Subjective: Interval history: Patient awaiting PICC line placement today. Overall states that she is feeling well. Currently saturating 94%. Wishes to return daily to outpatient for Medications: Reviewed: Yes Vitals/I&O/Wt Last Vital Signs Temp 98.2 F 06/06/20 15:41 Pulse 83 06/06/20 15:41 Resp 18 06/06/20 15:41 BP 133/82 06/06/20 15:41 Pulse Ox 94 06/06/20 15:41 06/06/20 06/06/20 06/06/20 06:59 14:59 22:59 Intake Total 500 / 1180 Output Total 1100 / 1700 300 / 300 Balance -600 / -520 -300 / -300 Weight last 48 hrs Weight 138.3 kg Weight 139.752 kg Physical Exam Narrative: EXAM NARRATIVE: GEN: Awake, alert and oriented, no acute distress CVS: S1S2 N RS: CTA B/L Abd: Soft, nt/nd , bs+ AOC OPERATIONS INTELLIGENCE CHIEF: no focal neuro deficits Urinary Catheter Management^: Lopez: Cath Placed During This Visit: yes, but has since been removed by the nurse Reason for Continuing Indwelling Catheter: Decision to DC Catheter Urinary Catheter Date of Insertion: 05/31/20 Urinary Catheter Time of Insertion: 13:00 Date Urinary Catheter Removed: 06/01/20 Time Urinary Catheter Discontinued: 06:45 Data : 06/06/20 04:40 06/06/20 04:40 A&P Assessment and plan (1) Community acquired pneumonia: Patient presented for left lung pneumonia with dense consolidation and loculated complex parapneumonic effusion with trapped lung. s/p left thoracotomy with decortication on 05/31. Blood and fluid cultures eventually ended up growing Streptococcus pneumonia. Subjectively has been improved. Working with I-S, flutter valve. PICC line requested to be placed today. Continue Rocephin 2 g once daily. Total duration 4 weeks. Follow-up CT scan 2 weeks after discharge. Follow-up with pulmonology as outpatient. Leukocytsois persisting at 14, however without clinical change. Appreciate thoracic surgery and pulmonology consultation. Follow-up repeat blood cultures. Status: Acute Qualifiers: Laterality: left Lung location: lower lobe of lung Qualified Code(s): J18.9 - Pneumonia, unspecified organism (2) CLARISSE (acute kidney injury): Creatinine better today. Avoid any additional NSAIDs. Reassess renal function, BOBY. Trace amorphous sediment and UA, renal ultrasound unremarkable. Status: Acute (3) Gram-positive bacteremia: Invasive pneumococcal infection with pneumonia, complicated by loculated parapneumonic effusion, bacteremia. Follow repeat blood cultures. Continue antibiotic. Will arrange for additional 3 weeks of IV Rocephin. TTE with grade 1 diastolic dysfunction. Does not have signs of septic emboli. Status: Acute (4) Pleural effusion: As above. Head parapneumonic complex effusion/empyema. Initial thoracentesis was yielding 200 cc growing pneumococcus. Subsequently underwent thoracotomy with evacuation of empyema, decortication on 05/31. Chest tube removed 06/03. Status: Acute (5) Leukocytosis: Improving. Secondary to pneumonia. Status: Acute (6) Hyperglycemia: Hemoglobin A1c not elevated. 5.8% Status: Acute (7) Hyponatremia: Likely secondary to pulmonary process. Improved TSH normal Status: Acute Additional A&P Information Hypokalemia: Replaced. Hypertension, continue home medications Anxiety continue home medications Heparin subcutaneous for DVT prophylaxis has been held perioperatively. At this time continue SCD. Full code Attestations Medical Necessity Statement*: picc line today, likely discharge in the upcoming 24 hours once PICC line is placed and outpatient antibiotics arranged. Coding Level of Care Code Acute Substation Operator Automatic for Amador Jones Diagnoses Community acquired pneumonia J18.9 Laterality: left Lung location: lower lobe of lung CLARISSE (acute kidney injury) N17.9 Gram-positive bacteremia R78.81 Pleural effusion J90 Leukocytosis D72.829 Hyperglycemia R73.9 Hyponatremia E87.1
[2020-06-06] MEDS: TRAMadol 50 mg Tablet 100 MG PO (19:41)
[2020-06-07] VITALS (9 sets, daily range): BP systolic 143–159; BP diastolic 83–90; PULSE 90–98; RESP 16–18; TEMP 36.4–36.8; O2SAT 84–94
[2020-06-07] MEDS: oxyCODONE-APAP 10-325 mg Tablet PO ×3 (01:12→15:12)
[2020-06-07 01:19] LABS: Basophils # 0.1 10^3/uL (0.0-0.1); Basophils % 0.9 %; Eosinophils # 0.3 10^3/uL (0.0-0.8); Eosinophils % 2.2 %; Hemoglobin 9.4 g/dL (11.5-15.3); Lymphocytes # 1.7 10^3/uL (0.8-4.8); Lymphocytes % 13.9 %; Mean Corpuscular HGB Conc 30.3 g/dL (30.0-36.0); Mean Corpuscular Hemoglobin 29.8 pg (28.0-34.0); Mean Corpuscular Volume 98.4 fL (81-99); Mean Platelet Volume 11.2 fL (7.4-10.4); Monocytes # 1.2 10^3/uL (0.2-0.9); Monocytes % 9.9 %; Neutrophils # 8.64 10^3/uL (1.8-7.7); Neutrophils % 71.7 %; Nucleated Red Blood Cells % 0 %; Platelet Count 432 10^3/cmm (130-400); Red Blood Count 3.15 10^6/uL (4.1-5.3); Red Cell Distribution Width 13.6 % (12.1-15.1); White Blood Count 12.1 10^3/uL (4.0-10.0)
[2020-06-07] MEDS: heparin 5,000 unit/mL INJ 1 mL 5000 UNIT SUBCUT (01:28)
[2020-06-07 02:00] LABS: Alanine Aminotransferase 18 U/L (0-33); Albumin Level 2.5 g/dL (3.5-5.2); Alkaline Phosphatase 89 IU/L (35-105); Anion Gap 14.8 (5-19); Aspartate Amino Transferase 37 U/L (0-32); Blood Urea Nitrogen 9 mg/dL (6-20); Calcium 8.4 mg/dL (8.5-10.5); Carbon Dioxide 32 mmol/L (22-29); Chloride 99 mmol/L (98-107); Globulin 4.1 g/dL (1.3-4.6); Glomerular Filtration Rate 46.5 mL/min (90-130); Glucose 161 mg/dL (65-115); Osmolality Calculated 296 mOsm/kg (285-295); Potassium 3.8 mmol/L (3.5-5.1); Sodium 142 mmol/L (136-145); Total Bilirubin 0.2 mg/dL (0.15-1.2); Total Protein 6.6 g/dL (6.6-8.7)
--- NOTE | 2020-06-07 06:33 | P.PN_ITS ---
Subjective Subjective: Interval history: Postop day #7 status post left thoracotomy with decortication. Up in chair on rounds. White count down to 12,000. Unfortunately still swelling only about 70 to 50 cc on incentive spirometry. There is still consolidation consistent with this aggressive pneumonic process, mainly involving the left lower lobe. She has a reasonably good effective cough though she is not really bringing up anything. Reports good appetite. Normal bowel and bladder function. PICC line was placed yesterday. Thoracotomy incision looks clean and dry. There was no dressing in place today. Oxygen saturation on room air, at rest, 90 to 91% Vitals/I&O/Wt Last Vital Signs Temp 97.8 F 06/07/20 04:00 Pulse 98 06/07/20 04:00 Resp 17 06/07/20 04:00 BP 155/85 06/07/20 04:00 Pulse Ox 93 06/07/20 04:00 06/06/20 06/06/20 06/07/20 14:59 22:59 06:59 Intake Total 720 / 720 Output Total 300 / 300 Balance -300 / -300 720 / 420 Weight last 48 hrs Weight 189 lb Weight 304 lb 14.4 oz Physical Exam Chest: COMMONS NORMALS: normal inspection of the chest (Thoracotomy incision clean, dry, and intact.) Resp: COMMON NORMALS: normal respiratory effort and No use of accessory muscles; negative for clear to auscultation bilaterally AUSCULTATION: not clear to auscultation bilaterally and diminished lung sounds on the left in the lower lung [place] Urinary Catheter Management^: Lopez: Cath Placed During This Visit: yes, but has since been removed by the nurse Reason for Continuing Indwelling Catheter: Decision to DC Catheter Urinary Catheter Date of Insertion: 05/31/20 Urinary Catheter Time of Insertion: 13:00 Date Urinary Catheter Removed: 06/01/20 Time Urinary Catheter Discontinued: 06:45 Data : 06/07/20 01:10 06/07/20 01:10 A&P Assessment and plan (1) Empyema lun week status post thoracotomy and decortication. Still a very minor consolidation of the left lower lobe. Recommendation: After discharge, continue daily showers. No swimming or tub baths x2 weeks. Follow-up in my clinic in 1 week. She needs aggressive pulmonary toilet. I am concerned that she may lose further left lower lobe lung volume with his continued consolidation. She is to receive daily antibiotics through her PICC line per instructions of infectious disease and pulmonary medicine. I greatly appreciate their expertise and oversight. Status: Acute Attestations Medical Necessity Statement*: Pneumonia with empyema 1 week status post left thoracotomy with decortication Time Spent in Patient Care: 16 - 35 minutes Coding Level of Care Code Acute Pipe Organ Technician for Amador Jones Diagnoses Empyema lung J86.9
--- NOTE | 2020-06-07 07:14 | PM.DCS ---
Discharge Providers Date of Admission: 05/27/20 19:04 Date of Discharge: June 07, 2020 Attending Provider at Admission: Curtis Finney MD Attending Provider at Discharge: Nicolasa Odell MD Primary Care Provider: AMANDA Luo Diagnoses at Discharge Discharge Diagnosis (1) Empyema lung: Status: Acute Reason for Visit Reason for Visit: sob/sent by [facility] Course Discharge Summary: Patient is a 54-year-old lady who presented to the ER on May 27 with chief complaint of cough shortness of breath orthopnea and low-grade fever. She tested negative for Covid. Upon evaluation here she was found to have a left-sided dense consolidation with a grossly loculated complex pleural effusion/empyema on the same side. She underwent thoracentesis on May 28 which revealed culture positive for Streptococcus pneumonia. Blood cultures also eventually returned positive for the same organism. She has been followed by pulmonary and CT surgery while she has been here and on May 31 underwent left thoracotomy with decortication and now has shown clinical improvement since then. She is currently postop day 7 from the procedure. White count has trended down but remained stable at around 12,000. She is planned to be discharged on a prolonged antibiotic course to the tune of at least 3 weeks with close follow-up with pulmonology as an outpatient. She is being discharged on ceftriaxone 2 g IV daily. A PICC line has been placed on June 06 to facilitate above. She preferred to come out to outpatient surgery to get her daily infusions rather than set up home health for the same. Blood cultures have been clear. Thoracotomy incision is healing well. She underwent a home O2 eval prior to discharge. Hospital course was also notable for presence of CLARISSE which is improved now with creatinine at 1.2 upon discharge.. Physical Exam Narrative: EXAM NARRATIVE: GEN: Awake, alert and oriented, no acute distress CVS: S1S2 N RS: CTA B/L except crackles over RUL Abd: Soft, nt/nd , bs+ FRONT OFFICE DEVELOPER: no focal neuro deficits Urinary Catheter Management^: Lopez: Cath Placed During This Visit: yes, but has since been removed by the nurse Reason for Continuing Indwelling Catheter: Decision to DC Catheter Urinary Catheter Date of Insertion: 05/31/20 Urinary Catheter Time of Insertion: 13:00 Date Urinary Catheter Removed: 06/01/20 Time Urinary Catheter Discontinued: 06:45 Discharge Data Data Completed and Pending: Completed Studies During Hospitalization Category Date Time Status CT angio chest PE protcl [id number] Urge nt Cat Scan 05/27/20 16:[address] chest wo con 7 1250 Routine Cat Scan 05/30/20 19:00 Completed CXRP [XR chest 1V portable [id number]] R outine Exams 06/06/20 13:23 Completed XR chest 1[place] [id number] Routine Exams 05/28/20 07:00 Completed XR chest 1V sandoval ble [id number] Routine Exams 05/29/20 07:53 Completed XR chest 1V sandoval ble 15854 Routine Exams 05/31/20 16:30 Completed XR chest 1V sandoval ble 57849 Routine Exams 06/01/20 06:00 Completed XR chest 1V sandoval ble 96193 Routine Exams 06/02/20 06:00 Completed XR chest 1V sandoval ble [id number] Routine Exams 06/03/20 06:00 Completed XR chest 1V sandoval ble [id number] Routine Exams 06/06/20 06:00 Completed XR chest 1V sandoval ble 38570 Stat Exams 05/28/20 10:25 Completed XR chest 1V sandoval ble 14753 Urgent Exams 05/27/20 16:09 Completed CV echo complete* [id number] Routine Ultrasound 05/30/20 06:00 Completed US chest [id number] Ro utine Ultrasound 05/30/20 11:24 Completed US renal BI with bladder Routine Ultrasound 06/04/20 19:23 Completed Pending at discharge Category Date Time Status CDIFF [Clostridio ides Difficile PCR ] Routine Lab 05/30/20 09:31 Uncollected Complete Blood Co unt w/Auto AM LABS Lab 06/08/20 04:00 Ordered Comprehensive Met abolic Panel AM LA BS Lab 06/08/20 04:00 Ordered Fungal Culture no t HR/SK/BL Routine Lab 05/28/20 10:10 Results Mycobacteria, Cul ture w/Fluor Routi ne Lab 05/28/20 10:10 Results Pleural Fluid Cho lesterol Routine Lab 05/30/20 11:24 Uncollected Cytology [PTH] Ro utine Pth 05/28/20 10:30 Received Labs from last 24 hours 06/07/20 06/07/20 01:10 01:10 WBC 12.1 H RBC 3.15 L Hgb 9.4 L Hct 31.0 L MCV 98.4 MCH 29.8 MCHC 30.3 RDW 13.6 Plt Count 432 H MPV 11.2 H Neut % (Auto) 71.7 Lymph % (Auto) 13.9 Garland % (Auto) 9.9 Eos % (Auto) 2.2 Baso % (Auto) 0.9 Neut # (Auto) 8.64 H Lymph # (Auto) 1.7 Garland # (Auto) 1.2 H Eos # (Auto) 0.3 Baso # (Auto) 0.1 Nucleated RBC % (a uto) 0 Nucleated RBCs # 0.0 Sodium 142 Potassium 3.8 Chloride 99 Carbon Dioxide 32 H Anion Gap 14.8 BUN 9 Creatinine 1.2 H GFR Calculation 46.5 L Glucose 161 H Calculated Osmolal ity 296 H Calcium 8.4 L Total Bilirubin 0.2 AST 37 H ALT 18 Alkaline Phosphata se 89 Total Protein 6.6 Albumin 2.5 L Globulin 4.1 Vitals: Last Vital Signs Temp 97.8 F 06/07/20 04:00 Pulse 98 06/07/20 04:00 Resp 17 06/07/20 04:00 BP 155/85 06/07/20 04:00 Pulse Ox 93 06/07/20 04:00 Discharge Plan Discharge Patient Disposition: Home Condition: Stable Prescriptions: New ceftriaxone 2 gram recon soln 1 gm IV DAILY 21 Days Qty: 21 RF: 0 furosemide [Lasix] 20 mg tablet 20 mg PO DAILY 3 Days Qty: 3 RF: 0 Continued Multiple Vitamins Tablet 1 tab PO DAILY RF: 0 Tylenol 325 mg Tablet 650 mg PO PRN RF: 0 lisinopril 20 mg tablet 20 mg PO DAILY RF: 0 alprazolam 0.25 mg tablet 0.25 mg PO BID PRN (Reason: unknown) RF: 0 amlodipine 10 mg tablet 10 mg PO DAILY RF: 0 escitalopram oxalate 10 mg tablet 10 mg PO DAILY RF: 0 Vitamin C 1 tab PO DAILY RF: 0 Discharge Orders: Discharge Order (Routine); Ordered 06/07/20 Ordered By: Nicolasa Odell Other Ambulatory Orders: Complete Blood Count w/Auto (WEEKLY) Timeframe: 20200614 Location: Determined by Patient Ordered By: Nicolasa Odell Complete Blood Count w/Auto (WEEKLY) Timeframe: 20200615 Location: Determined by Patient Ordered By: Nicolasa Kathuria Complete Blood Count w/Auto (WEEKLY) Timeframe: 20200616 Location: Determined by Patient Ordered By: Nicolasa Morrowriivana Complete Blood Count w/Auto (WEEKLY) Timeframe: 20200617 Location: Determined by Patient Ordered By: Nicolasa Ortezhuria Comprehensive Metabolic Panel (WEEKLY) Timeframe: 20200614 [place] [facility] [place] - [place] Lab Ordered By: Nicolasa Kathuria Comprehensive Metabolic Panel (WEEKLY) Timeframe: 20200615 Facility[place] [facility] [place]: Lab - Main Lab Ordered By: Nicolasa Ortezhuria Comprehensive Metabolic Panel (WEEKLY) Timeframe: 20200616 Facility: [facility] [place] Location: Lab - Main Lab Ordered By: Nicolasa Ortezhuria Comprehensive Metabolic Panel (WEEKLY) Timeframe: 20200617 Facility: [facility] [place] Location: Lab - Main Lab Ordered By: Nicolasa Odell Referrals: Drake Marmolejo MD [Physician] - 2 weeks Mara Sam FNP [Primary Care Provider] - 4-7 days Emery Amos MD [Physician] - 1 week Discharge Diet: Usual diet Discharge Activity: Resume usual activity Discharge Attestations Time Spent in Discharge Care*: greater than 30 min Quality Metrics Clinical Quality Measures During this hospital stay, did patient experience: None Coding Level of Care Code Acute Retail Sales Advisor for Renég Fwd Diagnoses Empyema lung J86.9
[2020-06-07] MEDS: amlodipine 10 mg Tablet PO (08:11)
[2020-06-07] MEDS: escitalopram 10 mg Tablet PO (08:11)
[2020-06-07] MEDS: pantoprazole DR 40 mg Tablet PO (08:11)
[2020-06-07] MEDS: chlorhexidine gluconate 4% Btl 118 mL 1 APPLIC TOPICAL (08:13)
[2020-06-07] MEDS: cefTRIAXone 2,000 MG in sodium chloride 0.9% (plus) 50 ML 100 MG IV (10:00)
--- NOTE | 2020-06-07 10:00 | PC.NURSE ---
vd order from Dr Odell to administer patient's antibiotic now and discharge patient home.
== END 2020-06-07 16:30 | disposition home or self-care (01) | DRG 853 ==
LOC: ER 18:41 → MEDSURG 19:40 → ICU 05-31 12:09 → MEDSURG 06-01 10:50
PROVIDERS: Emergency Medicine; Internal Medicine; Internal Medicine Pulmonary Disease; Thoracic Surgery (Cardiothoracic Vascular Surgery); Admitting Provider Internal Medicine; PCP Nurse Practitioner Family; Visit Provider Student in an Organized Health Care Education/Training Program
PROC: 0BNJ0ZZ Release Left Lower Lung Lobe, Open Approach (ICD-10-PCS; principal; 2020-05-31 12:00)
PROC: 0BJ08ZZ Inspection of Tracheobronchial Tree, Via Natural or Artificial Opening Endoscopic (ICD-10-PCS; CPT 31622; 2020-05-31 12:00)
DX: A41.9 Sepsis, unspecified organism (principal); J13 Pneumonia due to Streptococcus pneumoniae; J86.9 Pyothorax without fistula; J90 Pleural effusion, not elsewhere classified; E87.1 Hypo-osmolality and hyponatremia; N17.9 Acute kidney failure, unspecified; F41.9 Anxiety disorder, unspecified; I10 Essential (primary) hypertension; R73.9 Hyperglycemia, unspecified; Z87.01 Personal history of pneumonia (recurrent); E87.6 Hypokalemia
CPT/HCPCS: 12345; 32555; 36415; 36569; 51702; 71045; 71250; 71275; 76604; 76770; 76857; 80048; 80053; 80202; 80500; 81001; 82042; 82150; 82465; 82945; 83036; 83605; 83615; 83880; 83986; 84075; 84145; 84157; 84315; 84443; 84478; 84560; 85025; 85610; 86403; 86850; 86900; 86920; 87015; 87040; 87070; 87075; 87077; 87102; 87116; 87176; 87186; 87205; 87206; 87449; 87641; 87801; 88112; 88305; 89050; 93306; 94664; 96372; 96375; 99283; J0131; J0456; J0690; J0692; J0696; J1644; J1885; J2370; J2405; J2540; J2704; J3010; J3370; J3490; J3535; J7030; J7050; Q9967

== ENCOUNTER 2020-06-09 07:54 | Outpatient (RCR) | payer BC, SELFPAY ==
[2020-06-08] MEDS: cefTRIAXone 2,000 MG in sodium chloride 0.9% (plus) 50 ML 100 MG IV (08:09)
[2020-06-08 08:10] VITALS: BP 154/92; PULSE 108; RESP 18; TEMP 36.9; O2SAT 93; BMI 36.0
[2020-06-09] MEDS: cefTRIAXone 2,000 MG in sodium chloride 0.9% (plus) 50 ML 100 MG IV (08:00)
[2020-06-10] MEDS: cefTRIAXone 2,000 MG in sodium chloride 0.9% (plus) 50 ML 100 MG IV (07:42)
[2020-06-10 07:45] VITALS: BP 175/103; PULSE 110; RESP 18; TEMP 36.7; O2SAT 92
[2020-06-11 07:46] VITALS: BP 143/90; PULSE 99; RESP 20; TEMP 36.6; O2SAT 95
[2020-06-11] MEDS: cefTRIAXone 2,000 MG in sodium chloride 0.9% (plus) 50 ML 100 MG IV (07:48)
[2020-06-12] MEDS: cefTRIAXone 2,000 MG in sodium chloride 0.9% (plus) 50 ML 100 MG IV (07:30)
[2020-06-12 07:34] VITALS: BP 136/82; PULSE 103; RESP 18; TEMP 35.9; O2SAT 96
[2020-06-13] MEDS: cefTRIAXone 2,000 MG in sodium chloride 0.9% (plus) 50 ML 100 MG IV (07:49)
[2020-06-13 07:50] VITALS: BP 146/92; PULSE 95; RESP 18; TEMP 36.4; O2SAT 97
[2020-06-14] MEDS: cefTRIAXone 2,000 MG in sodium chloride 0.9% (plus) 50 ML 100 MG IV (07:20)
[2020-06-14 07:26] VITALS: BP 143/81; PULSE 88; RESP 18; TEMP 36.4; O2SAT 100
[2020-06-15] MEDS: cefTRIAXone 2,000 MG in sodium chloride 0.9% (plus) 50 ML 100 MG IV (07:25)
[2020-06-15 07:28] VITALS: BP 121/79; PULSE 95; RESP 18; TEMP 36.1; O2SAT 97
[2020-06-16] MEDS: cefTRIAXone 2,000 MG in sodium chloride 0.9% (plus) 50 ML 100 MG IV (07:32)
[2020-06-16 07:33] VITALS: BP 113/88; PULSE 98; RESP 18; TEMP 36.2; O2SAT 95
[2020-06-17 07:34] VITALS: BP 154/100; PULSE 106; RESP 18; TEMP 36.4; O2SAT 94
[2020-06-17] MEDS: cefTRIAXone 2,000 MG in sodium chloride 0.9% (plus) 50 ML 100 MG IV (07:35)
[2020-06-18] MEDS: cefTRIAXone 2,000 MG in sodium chloride 0.9% (plus) 50 ML 100 MG IV (07:30)
[2020-06-18 07:33] VITALS: BP 134/89; PULSE 99; RESP 18; TEMP 36.3; O2SAT 96
[2020-06-19] MEDS: cefTRIAXone 2,000 MG in sodium chloride 0.9% (plus) 50 ML 100 MG IV (07:25)
[2020-06-19 07:26] VITALS: BP 141/94; PULSE 93; RESP 18; TEMP 36.4; O2SAT 97
[2020-06-20 07:34] VITALS: BP 175/90; PULSE 110; RESP 18; TEMP 36.4; O2SAT 98
[2020-06-20] MEDS: cefTRIAXone 2,000 MG in sodium chloride 0.9% (plus) 50 ML 100 MG IV (07:39)
[2020-06-21 07:35] VITALS: BP 145/98; PULSE 109; RESP 18; TEMP 36.3; O2SAT 95
[2020-06-21] MEDS: cefTRIAXone 2,000 MG in sodium chloride 0.9% (plus) 50 ML 100 MG IV (07:35)
[2020-06-22 07:28] VITALS: BP 123/79; PULSE 106; RESP 18; TEMP 36.4; O2SAT 97
[2020-06-22] MEDS: cefTRIAXone 2,000 MG in sodium chloride 0.9% (plus) 50 ML 100 MG IV (07:32)
[2020-06-23] MEDS: cefTRIAXone 2,000 MG in sodium chloride 0.9% (plus) 50 ML 100 MG IV (07:28)
[2020-06-23 07:30] VITALS: BP 133/87; PULSE 101; RESP 18; TEMP 35.9; O2SAT 98
[2020-06-24] MEDS: cefTRIAXone 2,000 MG in sodium chloride 0.9% (plus) 50 ML 100 MG IV (07:17)
[2020-06-24 08:00] VITALS: BP 138/86; PULSE 91; RESP 18; TEMP 36.8; O2SAT 97
[2020-06-25 07:39] VITALS: BP 118/78; PULSE 92; RESP 18; TEMP 36.5; O2SAT 98
[2020-06-25] MEDS: cefTRIAXone 2,000 MG in sodium chloride 0.9% (plus) 50 ML 100 MG IV (07:39)
== END 2020-06-25 23:59 | disposition home or self-care (01) ==
LOC: OPS 07:54
PROVIDERS: PCP Nurse Practitioner Family; Visit Provider Internal Medicine
DX: R78.81 Bacteremia (principal); J18.9 Pneumonia, unspecified organism; J90 Pleural effusion, not elsewhere classified
CPT/HCPCS: 96365; J0696

== ENCOUNTER 2020-06-16 10:19 | Outpatient (CLI) | payer BC, SELFPAY ==
--- NOTE | 2020-06-16 10:22 | XR_ITS ---
WS: [id number] Portable AP upright chest, 06/16/2020 Clinical Data: empyema Comparison: Portable chest, 06/06/2020. Findings: The opacification of the periphery of the left lung has diminished. There is moderate left pleural thickening and elevation of left diaphragm. Right lung remains clear. The heart size is melba l. The aortic arch and descending aorta are tortuous. The right PICC line has not changed. XR/XR chest 1V 23680 Impression: 1. Almost total clearing of left lung opacity with peripheral left pleural thic kening. 2. No change in right PICC line.
== END 2020-06-16 10:20 | disposition home or self-care (01) ==
LOC: RAD 10:20
PROVIDERS: PCP Nurse Practitioner Family; Visit Provider Thoracic Surgery (Cardiothoracic Vascular Surgery)
DX: J86.9 Pyothorax without fistula (principal)
CPT/HCPCS: 71045

== ENCOUNTER 2020-06-27 07:30 | Outpatient (RCR) | payer BC, SELFPAY ==
[2020-06-26] MEDS: cefTRIAXone 2,000 MG in sodium chloride 0.9% (plus) 50 ML 100 MG IV (07:15)
[2020-06-26 07:50] VITALS: BP 98/71; PULSE 96; RESP 18; TEMP 36.6; O2SAT 98; BMI 37.1
[2020-06-27] MEDS: cefTRIAXone 2,000 MG in sodium chloride 0.9% (plus) 50 ML 100 MG IV (07:40)
[2020-06-27 07:43] VITALS: BP 104/71; PULSE 91; RESP 18; TEMP 36.6; O2SAT 98
[2020-06-28] MEDS: cefTRIAXone 2,000 MG in sodium chloride 0.9% (plus) 50 ML 100 MG IV (07:23)
[2020-06-28 07:27] VITALS: BP 123/83; PULSE 88; RESP 18; TEMP 36.1; O2SAT 96
[2020-06-29] MEDS: cefTRIAXone 2,000 MG in sodium chloride 0.9% (plus) 50 ML 100 MG IV (07:31)
[2020-06-29 07:32] VITALS: BP 126/73; PULSE 94; RESP 18; TEMP 36.7; O2SAT 99
== END 2020-07-25 23:59 | disposition home or self-care (01) ==
LOC: OPS 07:30
PROVIDERS: PCP Nurse Practitioner Family; Visit Provider Internal Medicine
DX: R78.81 Bacteremia (principal); J86.9 Pyothorax without fistula; J18.9 Pneumonia, unspecified organism; J90 Pleural effusion, not elsewhere classified
CPT/HCPCS: 96365; J0696

== ENCOUNTER 2020-08-15 09:25 | Outpatient (CLI) | payer BC, SELFPAY ==
--- NOTE | 2020-08-15 09:30 | XRR_ITS ---
PROCEDURE INFORMATION: Exam: XR Chest, 2 Views Exam date and time: 08/15/2020 9:41 AM Age: 55 years old Clinical indication: Condition or disease; Lung condition and disease; Pneumonia; Additional info: Resolution of left pneumonia follow up TECHNIQUE: Imaging protocol: XR of the chest Views: 2 views. COMPARISON: CR XR chest 1V [id number] 06/16/2020 10:30 AM FINDINGS: Tubes, catheters and devices: Surgical clips overlying the left hemithorax. Lungs: Near complete interval resolution of left basilar airspace disease. Pleural space: Residual left pleural thickening and/or small effusion. Heart/Mediastinum: No cardiomegaly. Bones/joints: Mild degenerative change and scoliosis. XR/XR chest 2V* [id number] IMPRESSION: Near complete interval resolution of left basilar airspace disease.
== END 2020-08-15 09:26 | disposition home or self-care (01) ==
LOC: RAD 09:27
PROVIDERS: PCP Nurse Practitioner Family; Visit Provider Emergency Medicine
DX: J18.9 Pneumonia, unspecified organism (principal)
CPT/HCPCS: 71046

== ENCOUNTER → 2022-11-23 08:42 | Outpatient (BNVA) | payer BC, SELFPAY | PROVIDERS: PCP Clinical Nurse Specialist Adult Health; Visit Provider Clinical Nurse Specialist Adult Health | DX: Z00.00 Encounter for general adult medical examination without abnormal findings (principal); F41.9 Anxiety disorder, unspecified; I10 Essential (primary) hypertension; Z12.4 Encounter for screening for malignant neoplasm of cervix; Z12.39 Encounter for other screening for malignant neoplasm of breast | CPT/HCPCS: 80053; 80061; 84443; 85025; 88175 ==

== ENCOUNTER → 2022-12-03 08:04 | Outpatient (BNVA) | payer BC, SELFPAY | PROVIDERS: PCP Clinical Nurse Specialist Adult Health; Visit Provider Clinical Nurse Specialist Adult Health | DX: I10 Essential (primary) hypertension (principal) | CPT/HCPCS: 85025 ==

== ENCOUNTER 2022-12-24 06:59 | Outpatient (CLI) | payer BC, SELFPAY ==
--- NOTE | 2022-12-24 07:30 | MM_ITS ---
WS: [id number] SCREENING DIGITAL TOMOSYNTHESIS MAMMOGRAM WITH CAD HISTORY: screening COMPARISON: None available. Bilateral CC and MLO with tomosynthesis views submitted. Synthetic mammography reviewed. Computer aid ed detection analyzed. Breast composition: There are scattered areas of fibroglandular density. No suspicious masses, microc alcifications or architectural distortion. MM/[place] [id number] IMPRESSION: BI-RADS: 1-Negative FOLLOW UP: 1 Year Follow-up
== END 2022-12-24 07:00 | disposition home or self-care (01) ==
LOC: RAD 07:02
PROVIDERS: PCP Clinical Nurse Specialist Adult Health; Visit Provider Clinical Nurse Specialist Adult Health
DX: Z12.31 Encounter for screening mammogram for malignant neoplasm of breast (principal)
CPT/HCPCS: 77063; 77067

== ENCOUNTER 2023-01-30 08:36 | Outpatient (CLI) | payer BC, SELFPAY ==
--- NOTE | 2023-01-30 08:52 | XRR_ITS ---
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 The patient's knee has been swollen and has had pain for a couple of months; Additional info: Left knee pain, medial and distal patella TECHNIQUE: Imaging protocol: Radiologic exam of the left knee. Views: 3 views. COMPARISON: No relevant prior studies available. FINDINGS: Bones/joints: Moderately advanced degenerative arthritis. Likely small knee joint effusion. No fracture. Soft tissues: Normal. XR/XR knee LT 3V* [id number] IMPRESSION: Moderate degenerative arthritis left knee.
== END 2023-01-30 08:37 | disposition home or self-care (01) ==
PROVIDERS: PCP Clinical Nurse Specialist Adult Health; Visit Provider Clinical Nurse Specialist Adult Health
DX: M25.562 Pain in left knee (principal); R73.01 Impaired fasting glucose
CPT/HCPCS: 73562; 83036